=== PATIENT | female | born 1965 | race Caucasian/White ===

== ENCOUNTER → 2020-06-14 09:17 | Outpatient (BNVA) | payer BC, SELFPAY | PROVIDERS: Family Provider Nurse Practitioner; PCP Nurse Practitioner; Visit Provider Nurse Practitioner | DX: E11.65 Type 2 diabetes mellitus with hyperglycemia (principal); E04.9 Nontoxic goiter, unspecified | CPT/HCPCS: 80053; 80061; 82043; 83036; 84443 ==

== ENCOUNTER 2020-07-05 06:57 | Outpatient (CLI) | payer BC, SELFPAY ==
--- NOTE | 2020-07-05 07:15 | US_ITS ---
WS: [id number] THYROID ULTRASOUND (TI-RADS CRITERIA) History: Enlarged thyroid. Technique: Ultrasound examination of the thyroid and adjacent soft tissues is performed. COMPARISON: 03/10/2019 RIGHT thyroid lobe: 4.6 x 1.7 x 2.0 cm. LEFT thyroid lobe: 4.9 x 1.7 x 1.7 cm. Isthmus: 0.3 cm. Estimated total number of nodules greater than or equal to 1 cm: 1, RIGHT side. Number of spongiform nodules greater than or equal to 2 cm not described below (TR1): 0 Number of mixed cystic and solid nodules greater than or equal to 1.5 cm not described below (TR2): 0 NODULE: 1 Size: 0.6 x 0.6 x 0.5 cm. Location: Superior RIGHT thyroid lobe. Composition: Solid/almost completely solid (2) Echogenicity: Hypoechoic (2) Shape: [id number] (3) Margins: Ill-defined (0) Echogenic foci: 0 ACR TI-RADS total points: 5 ACR TI-RADS risk category: TR 4, moderately suspicious. NODULE: 2 Size: 1.0 x 0.6 x 1.0 cm. Location: Inferior RIGHT thyroid. Composition: Solid/almost completely solid (2) Echogenicity: Hypoechoic (2) Shape: Not taller than wide (0) Margins: Smooth (0) Echogenic foci: None (0) ACR TI-RADS total points: 4 ACR TI-RADS risk category: TR4, moderately suspicious. US/US thyroid [id number] IMPRESSION: TI-RADS 4 Recommendation: Follow-up ultrasound at 1, 2, 3 and 5 years. RIGHT thyroid nodules need further evaluation as recommended above. Recommendat ion may change if thyroid nodules increase in size or become more concerning.
== END 2020-07-05 06:58 | disposition home or self-care (01) ==
LOC: US 06:57
PROVIDERS: PCP Nurse Practitioner; Visit Provider Nurse Practitioner
DX: E04.9 Nontoxic goiter, unspecified (principal); E04.1 Nontoxic single thyroid nodule
CPT/HCPCS: 76536

== ENCOUNTER → 2021-01-06 10:02 | Outpatient (BNVA) | payer BC, SELFPAY | PROVIDERS: PCP Nurse Practitioner; Visit Provider Nurse Practitioner | DX: E11.65 Type 2 diabetes mellitus with hyperglycemia (principal); E78.5 Hyperlipidemia, unspecified; I10 Essential (primary) hypertension | CPT/HCPCS: 80053; 80061; 81000; 82043; 83036 ==

== ENCOUNTER → 2021-01-07 11:10 | Outpatient (BNVA) | payer BC, SELFPAY | PROVIDERS: PCP Nurse Practitioner; Visit Provider Obstetrics & Gynecology | DX: Z12.4 Encounter for screening for malignant neoplasm of cervix (principal) | CPT/HCPCS: 88175 ==

== ENCOUNTER → 2021-05-11 09:26 | Outpatient (BNVA) | payer BC, SELFPAY | PROVIDERS: PCP Nurse Practitioner; Visit Provider Nurse Practitioner | DX: E11.65 Type 2 diabetes mellitus with hyperglycemia (principal); F41.1 Generalized anxiety disorder; R00.2 Palpitations; I10 Essential (primary) hypertension; G47.33 Obstructive sleep apnea (adult) (pediatric); E78.5 Hyperlipidemia, unspecified | CPT/HCPCS: 80053; 83036; 84443 ==

== ENCOUNTER → 2021-11-14 09:38 | Outpatient (BNVA) | payer BC, SELFPAY | PROVIDERS: PCP Nurse Practitioner; Visit Provider Nurse Practitioner | DX: R51.9 Headache, unspecified (principal); F41.1 Generalized anxiety disorder; E11.65 Type 2 diabetes mellitus with hyperglycemia; I10 Essential (primary) hypertension; R00.2 Palpitations | CPT/HCPCS: 80053; 80061; 82043; 83036; 84443; 85025 ==

== ENCOUNTER 2022-01-03 08:05 | Outpatient (CLI) | payer BC, SELFPAY ==
--- NOTE | 2022-01-03 08:23 | MR_ITS ---
WS: [id number] MRI HEAD WITHOUT CONTRAST TECHNIQUE: Sagittal T1, T2 axial, T2 axial FLAIR, axial and coronal T1 images, axial susceptibility w eighted imaging, axial diffusion weighted images, and coronal T2 images were obtained. CLINICAL INFORMATION: R51.9 - Headache, unspecified COMPARISON: None. FINDINGS: No evidence of restricted diffusion to suggest acute ischemia. Ventricular system and basal cisterns are patent. Mild small vessel changes. No significant parenchymal volume loss. Normal posterior fossa . Normal vascular flow voids at the skull base. No extra-axial fluid collections. No evidence of mass or mass effect. Paranasal sinuses and mastoid air cells are well aerated. Normal posterior nasophary nx. Tiny chronic lacunar infarct LEFT cerebellum. No hemosiderin on the susceptibly weighted images. Normal optic chiasm and pituitary infundibulum. MR/MR head wo con* [id number] IMPRESSION: 1. No evidence of restricted diffusion to suggest acute ischemia. 2. Mild small vessel changes. No significant parenchymal volume loss. 3. Tiny chronic lacunar infarct LEFT cerebellum. 4. Paranasal sinuses and mastoid air cells are well aerated. 5. No hemosiderin on the susceptibly weighted images.
== END 2022-01-03 08:06 | disposition home or self-care (01) ==
PROVIDERS: PCP Nurse Practitioner; Visit Provider Nurse Practitioner
DX: R51.9 Headache, unspecified (principal); I63.81 Other cerebral infarction due to occlusion or stenosis of small artery
CPT/HCPCS: 70551

== ENCOUNTER → 2022-01-10 15:23 | Outpatient (BNVA) | payer BC, SELFPAY | PROVIDERS: PCP Nurse Practitioner; Visit Provider Nurse Practitioner | DX: I10 Essential (primary) hypertension (principal); M25.561 Pain in right knee | CPT/HCPCS: 73562 ==

== ENCOUNTER → 2022-03-27 11:53 | Outpatient (BNVA) | payer BC, SELFPAY | PROVIDERS: PCP Nurse Practitioner; Visit Provider Nurse Practitioner | DX: E11.65 Type 2 diabetes mellitus with hyperglycemia (principal); R00.2 Palpitations; I10 Essential (primary) hypertension; F41.1 Generalized anxiety disorder; E78.5 Hyperlipidemia, unspecified | CPT/HCPCS: 80053; 80061; 82043; 83036 ==

== ENCOUNTER → 2022-07-28 11:32 | Outpatient (BNVA) | payer BC, SELFPAY | PROVIDERS: PCP Nurse Practitioner; Visit Provider Nurse Practitioner | DX: N64.4 Mastodynia (principal); Z12.11 Encounter for screening for malignant neoplasm of colon; E11.65 Type 2 diabetes mellitus with hyperglycemia; F41.1 Generalized anxiety disorder; R00.2 Palpitations | CPT/HCPCS: 80053; 83036 ==

== ENCOUNTER 2022-09-08 13:44 | Outpatient (CLI) | payer BC, SELFPAY ==
--- NOTE | 2022-09-08 13:54 | MM_ITS ---
WS: [id number] DIAGNOSTIC BILATERAL DIGITAL BREAST TOMOSYNTHESIS MAMMOGRAPHY WITH CAD LEFT breast ultrasound, limited HISTORY: BREAST PAIN COMPARISON: 05/02/2019 and 12/06/2017 TECHNIQUE: Bilateral craniocaudad, mediolateral oblique, and mediolateral views are submitted with to mosynthesis and SM. Spot compression LEFT CC and MLO. Computer aided detection utilized. Breast composition: There are scattered areas of fibroglandular density. Development of numerous spic ulated masses in the upper outer quadrant of the LEFT breast. The largest mass causing skin thickenin g and distortion measures 2.3 x 2.1 cm. There is an additional more posterior mass measuring 1.8 x 1. 8 cm. There may be an additional mass in the upper outer quadrant. There is additional soft tissue th ickening. All these changes are in the upper outer quadrant. The RIGHT breast is negative. LEFT breast ultrasound, limited. Soft tissue mass with dense shadowing and obscured posterior margin in the LEFT breast at 1:00, 6 cm from the nipple. Mass measures 2.8 x 3.1 x 1.7 cm. There is an additional mass at 2:00, 7 cm from the nipple with dense shadowing measuring 1.7 x 1.8 x 1.4 cm. There are a few additional scattered cysts . There may be additional masses which are obscured by the dense shadowing in the breast. No adenopathy in the LEFT axilla. MM/[place] [id number] IMPRESSION: BI-RADS: 5-Highly Suggestive of Malignancy FOLLOW UP: Biopsy Recommended Ultrasound-guided biopsy recommended LEFT breast. There are at least 2 masses w hich can be identified as separate structures which may undergo biopsy. If dee tional masses in the upper outer quadrant are identified during the biopsy thes e can also be biopsied.
--- NOTE | 2022-09-08 14:30 | US_ITS ---
WS: [id number] DIAGNOSTIC BILATERAL DIGITAL BREAST TOMOSYNTHESIS MAMMOGRAPHY WITH CAD LEFT breast ultrasound, limited HISTORY: BREAST PAIN COMPARISON: 05/02/2019 and 12/06/2017 TECHNIQUE: Bilateral craniocaudad, mediolateral oblique, and mediolateral views are submitted with to mosynthesis and SM. Spot compression LEFT CC and MLO. Computer aided detection utilized. Breast composition: There are scattered areas of fibroglandular density. Development of numerous spic ulated masses in the upper outer quadrant of the LEFT breast. The largest mass causing skin thickenin g and distortion measures 2.3 x 2.1 cm. There is an additional more posterior mass measuring 1.8 x 1. 8 cm. There may be an additional mass in the upper outer quadrant. There is additional soft tissue th ickening. All these changes are in the upper outer quadrant. The RIGHT breast is negative. LEFT breast ultrasound, limited. Soft tissue mass with dense shadowing and obscured posterior margin in the LEFT breast at 1:00, 6 cm from the nipple. Mass measures 2.8 x 3.1 x 1.7 cm. There is an additional mass at 2:00, 7 cm from the nipple with dense shadowing measuring 1.7 x 1.8 x 1.4 cm. There are a few additional scattered cysts . There may be additional masses which are obscured by the dense shadowing in the breast. No adenopathy in the LEFT axilla. US/US breast LT limited* [id number] IMPRESSION: BI-RADS: 5-Highly Suggestive of Malignancy FOLLOW UP: Biopsy Recommended Ultrasound-guided biopsy recommended LEFT breast. There are at least 2 masses w hich can be identified as separate structures which may undergo biopsy. If dee tional masses in the upper outer quadrant are identified during the biopsy thes e can also be biopsied.
== END 2022-09-08 13:45 | disposition home or self-care (01) ==
LOC: RAD 13:48
PROVIDERS: PCP Nurse Practitioner; Visit Provider Nurse Practitioner
DX: N63.21 Unspecified lump in the left breast, upper outer quadrant (principal); N64.4 Mastodynia
CPT/HCPCS: 76642; 77062; G0279

== ENCOUNTER 2022-10-12 07:48 | Outpatient (CLI) | payer BC, SELFPAY ==
--- NOTE | 2022-10-12 | US_ITS ---
WS: [id number] ULTRASOUND-GUIDED LEFT BREAST BIOPSY CLINICAL INFORMATION: N63.21 - Unspecified lump in the left breast, upper outer... FINDINGS: The procedure including risks, benefits, and complications were discussed with the patient who agreed to proceed. Using sterile technique patient was prepped and draped in the usual sterile fashion. Aft er 1% lidocaine utilizing real-time ultrasound guidance 4 14-gauge cores were obtained of the LEFT br east lesion at the 1 o'clock position 6 cm from the nipple. Subsequently a titanium clip was placed i n the biopsy cavity. Next, LEFT breast lesion at the 2:00 position 7 cm from the nipple was localized. Four 14-gauge cores were obtained. Titanium clip was placed in the biopsy cavity. No immediate complications. Pathology demonstrates A. Breast, left, 1 o'clock, 6 cm from nipple, biopsy: - Invasive ductal carcinoma. - Adame Fonseca grade 2 (score 6). - Breast profile has been performed and will be reported separately. B. Breast, left, 2 o'clock, 7 cm from nipple, biopsy: - Invasive ductal carcinoma. - Adame Fonseca grade 2 (score 6). - Breast profile has been performed and will be reported separately. US/[place] [id number] IMPRESSION: 1. Uncomplicated ultrasound-guided LEFT breast biopsy. 2. The pathology demonstrates invasive ductal carcinoma LEFT breast correspond ing to the biopsied 1:00 and 2:00 lesions. 3. Breast cancer prognostic profile pending. BI-RADS: 6-Known Biopsy-Proven Malignancy FOLLOW UP: Surgical Biopsy Recommended Recommend Breast surgery consultation in further evaluation.
--- NOTE | 2022-10-12 08:14 | US_ITS ---
WS: [id number] ULTRASOUND-GUIDED LEFT BREAST BIOPSY CLINICAL INFORMATION: N63.21 - Unspecified lump in the left breast, upper outer... FINDINGS: The procedure including risks, benefits, and complications were discussed with the patient who agreed to proceed. Using sterile technique patient was prepped and draped in the usual sterile fashion. Aft er 1% lidocaine utilizing real-time ultrasound guidance 4 14-gauge cores were obtained of the LEFT br east lesion at the 1 o'clock position 6 cm from the nipple. Subsequently a titanium clip was placed i n the biopsy cavity. Next, LEFT breast lesion at the 2:00 position 7 cm from the nipple was localized. Four 14-gauge cores were obtained. Titanium clip was placed in the biopsy cavity. No immediate complications. Pathology demonstrates A. Breast, left, 1 o'clock, 6 cm from nipple, biopsy: - Invasive ductal carcinoma. - Adame Fonseca grade 2 (score 6). - Breast profile has been performed and will be reported separately. B. Breast, left, 2 o'clock, 7 cm from nipple, biopsy: - Invasive ductal carcinoma. - Adame Fonseca grade 2 (score 6). - Breast profile has been performed and will be reported separately. US/[place] [id number] IMPRESSION: 1. Uncomplicated ultrasound-guided LEFT breast biopsy. 2. The pathology demonstrates invasive ductal carcinoma LEFT breast correspond ing to the biopsied 1:00 and 2:00 lesions. 3. Breast cancer prognostic profile pending. BI-RADS: 6-Known Biopsy-Proven Malignancy FOLLOW UP: Surgical Biopsy Recommended Recommend Breast surgery consultation in further evaluation.
[2022-10-19 06:49] LABS: Breast Profile ER,PR,HER2,Ki-6 See Report
== END 2022-10-12 07:49 | disposition home or self-care (01) ==
PROVIDERS: PCP Nurse Practitioner; Visit Provider Nurse Practitioner
DX: N63.21 Unspecified lump in the left breast, upper outer quadrant (principal); C50.412 Malignant neoplasm of upper-outer quadrant of left female breast
CPT/HCPCS: 19083; 19084; 88305; 88361; 88374

== ENCOUNTER 2022-10-30 20:44 | Observation (INO) | payer BC, SELFPAY ==
--- NOTE | 2022-10-30 20:46 | ED_ITS ---
HPI - Chest Pain General: Chief Complaint: Chest Pain Stated Complaint: CP, SOB Time Seen by Provider: 10/30/22 20:46 History of Present Illness: Ms. Taylor is a 57-year-old lady with history of hypertension, hyperlipidemia, diabetes, recent diagnosis of breast cancer presenting to the emergency department due to chest pain and shortness of breath. Onset of symptoms was yesterday with generalized malaise associated with diarrhea. Has continued to have abdominal cramping and diarrhea today which is nonbloody. Also has had nausea. Became lightheaded and had presyncopal episode around 7:30 PM and has pressure in the middle of her chest. Intensity symptoms is moderate to severe. Course has persisted. Denies frequent episodes in the past. No other specific changes in health, exacerbating, or alleviating factors identified. [employer] Zofran, aspirin, nitro by EMS Onset (ago): hour(s) Timing of current episode: increasing Prior episodes: No Pain location: substernal Severity: moderate Quality: tightness and heaviness Relieving factors: nothing Exacerbating factors: nothing Context: other Associated symptoms: Reports abdominal pain, dyspnea, nausea, vomiting and other Review of Systems General: Reports: 10 or more systems reviewed and unremarkable except in HPI and below Resp: Reports: dyspnea GI: Reports: abdominal pain, nausea and vomiting PFSH ED PFSH: Medical History Atypical chest pain Benign essential HTN Breast cancer, left Controlled diabetes mellitus with hyperglycemia, without long-term current use of insulin Dyslipidemia Dyslipidemia (high LDL; low HDL) Endometrial polyp Generalized anxiety disorder Hypertension Impacted cerumen of both ears CHANI on CPAP Ovarian cyst, left Palpitations (~10/2019) Postmenopausal bleeding Patient was counseled regarding postmenopausal bleeding is bleeding that occurs 12 or more months after the last menstrual period and accounts for 5% of all gynecologic office visits. While it is not always a symptom of cancer, the exclusion of endometrial hyperplasia and carcinoma is the babcock issue in the evaluation of patients with postmenopausal bleeding. The primary evaluation of postmenopausal women who present with abnormal uterine bleeding includes a medical history and a pelvic examination. Studies to evaluate, are a uterine biopsy, ultrasound, hysteroscopy or dilation and curettage, may be required. Treatment will depend on the cause. An office hysteroscopy was recommended. The patient was counseled regarding the procedure. The office hysteroscopy showed an endometrial polyp on the posterior uterine wall. Surgical History History of arthroscopy of left shoulder History of bilateral cataract extraction History of cholecystectomy History of detached retina repair Left eye History of elbow surgery Hx of hernia repair S/P arthroscopic surgery of left knee Status post hysteroscopic polypectomy Family History Father Heart disease Cancer Hyperlipidemia Hypertension Mother Heart disease Thyroid condition Hyperlipidemia Hypertension Grandfather Cancer Maternal--prostate cancer Brother Stroke Unknown No problems noted. Sister Diabetes Hyperlipidemia Hypertension Brother Diabetes Hyperlipidemia Hypertension Grandmother Diabetes maternal Denies family history of Colon cancer Ovarian cancer Clotting disorder Breast cancer Anesthesia complication Bleeding disorder Uterine cancer Social History Smoking and tobacco status: former smoker Quit status (tobacco): has quit using tobacco Year quit tobacco: 2004 Second hand smoke exposure: No Smoking risk assessment/counseling performed?: No Alcohol intake: never Desire information about alcohol rehabilitation?: No Counseling given: No Desire information about substance/drug rehabilitation?: No Counseling given: No Adopted: No Caregiver/support person: No Lives independently: Yes Housing: House Marital status: service: No Current occupational status: employed Current occupation: [employer] Current gender identity: Female Physical Exam Const: COMMON NORMALS: alert GENERAL APPEARANCE: cooperative, well developed and ill appearing (Somewhat) HENMT: COMMON NORMALS: normocephalic and atraumatic HEAD & SCALP: normocephalic and atraumatic Eye: COMMON NORMALS: conjunctivae normal CONJUNCTIVA: Yes conjunctivae normal SCLERA: sclerae normal Neck/C-Spine: COMMON NORMALS: supple GENERAL: Yes trachea midline Resp: COMMON NORMALS: normal respiratory effort and clear to auscultation bilaterally EFFORT & INSPECTION: Yes able to speak in complete sentences AUSCULTATION: clear to auscultation bilaterally Cardio: COMMON NORMALS: regular rhythm RATE: tachycardic RHYTHM: regular rhythm GI: COMMON NORMALS: Soft to palpation PALPATION: Yes Soft to palpation, Yes Tenderness to palpation present (GI) (Mild, generalized), No Guarding due to palpation present (GI) and No Rigid due to palpation Extremity: GENERAL: Yes normal exam except as noted and No edema Neuro: COMMON NORMALS: moves all extremities SENSORIUM/ORIENTATION: Yes alert and No Orientation impaired Psych: COMMON NORMALS: mental status grossly normal and Normal thought process present THOUGHT PROCESS: Normal thought process present Course Vital Signs: Vital signs: Vital Signs Temperature 98.2 F 10/31/22 14:12 Pulse Rate 82 10/31/22 14:12 Respiratory Rate 18 10/31/22 14:12 Blood Pressure 139/79 10/31/22 14:12 Pulse Oximetry 98 10/31/22 14:12 Oxygen Delivery Me thod 10/31/22 11:18 Fraction of Inspir ed Oxygen 21 10/31/22 02:46 MDM - Chest Pain Medical Decision Making 57-year-old lady presenting with chest pain and near syncope as well as few day history of abdominal symptoms. Exam as above. Abdominal tenderness without evidence of acute surgical abdomen. Patient is nontoxic in appearance. EKG shows sinus rhythm with nonspecific ST segment abnormalities, no STEMI. No significant hematologic abnormality. Metabolic panel mildly decreased bicarb, renal function is preserved. Negative range 2-hour delta troponin. No UTI. Rapid viral panel negative. Given patient description of symptoms as well as possible S1Q3T3 and the fact that patient cannot be delivered by PERC criteria D-dimer was obtained which was elevated. Chest x-ray with questionable minimal right lower lobe infiltrate or atele ctasis. CT imaging without evidence of PE or pneumonia. Patient has hepatomegaly with fatty liver and fat-containing hernia though hernia does not appear to be cause of patient symptoms. Most likely etiology of patient's symptoms is chest pain, she is not low risk by heart score. The results of ED evaluation were discussed with the patient including possible disposition options. I discussed risk stratification by heart score and estimated risk of major adverse cardiac events. The patient wishes to proceed with in-hospital management. I discussed plan for admission due to requirement for level of care not available if discharged to prevent significant worsening/deterioration. Patient agreeable with plan. Discussed with hospitalist service who was agreeable to admit patient. Medical Records I reviewed the patient's medical records. Lab Data I reviewed the patient's lab results. 10/30/22 20:51 10/30/22 20:51 Radiology Impressions Chest X-Ray 10/30/22 20:51 IMPRESSION: Minimal infiltrate or atelectasis right lower lobe. Correlate for possible pneumonia. Chest/Abdomen/Pelvis CT 10/30/22 21:37 IMPRESSION: 1. No acute pulmonary disease. 2. No pulmonary embolus. 3. Multiple nodular densities in the left breast. Correlate with mammographic findings. 4. 4 mm solid right upper lobe pulmonary nodule. 5. For patients at low risk (minimal or absent history of smoking and of other known risk factors), no routine follow-up is indicated. For patients at high risk (history of smoking or of other known risk factors), consider IMPRESSION: 1. Hepatomegaly with fatty infiltration of the liver. 2. Bladder wall thickening. Correlate for cystitis. 3. Right sided fat containing ventral abdominal wall hernia with narrow neck, and minimal stranding. Correlate for possible strangulation of the hernia clinically. Laboratory Results WBC 8.4 10^3/uL (4.0-10.0) 10/30/22 20:51 RBC 4.70 10^6/uL (4.1-5.3) 10/30/22 20:51 Hgb 13.3 g/dL (11.5-15.3) 10/30/22 20:51 Hct 41.9 % (37.0-47.0) 10/30/22 20:51 MCV 89.1 fl (81-99) 10/30/22 20:51 MCH 28.3 pg (28.0-34.0) 10/30/22 20:51 MCHC 31.7 g/dL (30.0-36.0) 10/30/22 20:51 RDW 13.3 % (12.1-15.1) 10/30/22 20:51 Plt Count 366 10^3/cmm (130-400) 10/30/22 20:51 MPV 12.1 fL (7.4-10.4) H 10/30/22 20:51 Neut % (Auto) 66.6 % 10/30/22 20:51 Lymph % (Auto) 22.5 % 10/30/22 20:51 [place] % (Auto) 8.2 % 10/30/22 20:51 Eos % (Auto) 2.1 % 10/30/22 20:51 Baso % (Auto) 0.2 % 10/30/22 20:51 Neut # (Auto) 5.60 10^3/uL (1.8-7.7) 10/30/22 20:51 Lymph # (Auto) 1.9 10^3/uL (0.8-4.8) 10/30/22 20:51 [place] # (Auto) 0.7 10^3/uL (0.2-0.9) 10/30/22 20:51 Eos # (Auto) 0.2 10^3/uL (0.0-0.8) 10/30/22 20:51 Baso # (Auto) 0.0 10^3/uL (0.0-0.1) 10/30/22 20:51 Nucleated RBC % (auto) 0 % 10/30/22 20:51 Nucleated RBCs # 0.0 /100WBC 10/30/22 20:51 D-Dimer 3.22 ug/mIFEU (0-0.59) H 10/30/22 20:57 Sodium 142 mmol/L (136-145) 10/30/22 20:51 Potassium 4.1 mmol/L (3.5-5.1) 10/30/22 20:51 Chloride 109 mmol/L (98-107) H 10/30/22 20:51 Carbon Dioxide 20 mmol/L (22-29) L 10/30/22 20:51 Anion Gap 17.1 (5-19) 10/30/22 20:51 BUN 16 mg/dL (6-20) 10/30/22 20:51 Creatinine 0.7 mg/dL (0.5-0.9) 10/30/22 20:51 GFR Calculation 86.2 mL/min (90-130) L 10/30/22 20:51 Glucose 130 mg/dL (65-115) H 10/30/22 20:51 Calculated Osmolality 297 mOsm/kg (285-295) H 10/30/22 20:51 Calcium 8.7 mg/dL (8.5-10.5) 10/30/22 20:51 Magnesium 1.9 mg/dL (1.7-2.3) 10/30/22 22:34 Total Bilirubin 0.2 mg/dL (0.15-1.2) 10/30/22 20:51 AST 16 U/L (0-32) 10/30/22 20:51 ALT 22 U/L (0-33) 10/30/22 20:51 Alkaline Phosphatase 88 U/L (35-105) 10/30/22 20:51 Troponin T Baseline 6 ng/L (0-10) 10/30/22 20:51 Troponin T 120 Minute 6.00 ng/L (0-10) 10/30/22 22:34 Delta Troponin T 0 ABS# (0-10) 10/30/22 22:34 NT-Pro-B Natriuret Pep 71 pg/mL (0-125) 10/30/22 20:51 Total Protein 7.0 g/dL (6.6-8.7) 10/30/22 20:51 Albumin 3.5 g/dL (3.5-5.2) 10/30/22 20:51 Globulin 3.5 g/dL (1.3-4.6) 10/30/22 20:51 Lipase 31 U/L (13-60) 10/30/22 20:51 Urine Color Yellow (Yellow) 10/30/22 21:00 Urine Appearance Clear (CLEAR) 10/30/22 21:00 Urine pH 7 (5-7) 10/30/22 21:00 Ur Specific [place] 1.010 (1.005-1.030) 10/30/22 21:00 Urine Protein Neg (Negative) 10/30/22 21:00 Urine Glucose (UA) Norm (Normal) 10/30/22 21:00 Urine Ketones Negative (Negative) 10/30/22 21:00 Urine Blood Neg (Negative) 10/30/22 21:00 Urine Nitrate Negative (Negative) 10/30/22 21:00 Urine Bilirubin Neg (Negative) 10/30/22 21:00 Urine Urobilinogen Norm mg/dL (Negative) 10/30/22 21:00 Ur Leukocyte Esterase Negative (Negative) 10/30/22 21:00 Influenza Type A Ag negative (Negative) 10/30/22 21:15 Influenza Type B Ag negative (Negative) 10/30/22 21:15 SARS-CoV-2 Ag (Rapid) negative (Negative) 10/30/22 21:15 Discharge Plan Discharge Patient Disposition: Placed in Observation Admit Provider: Kristopher Howell Clinical Impression: Chest pain Discharge Diet: Cardiac Discharge Activity: Resume usual activity Coding Level of Care Code ED Inspector Final Assembly Mechanical for Chg Fwd Exam Comprehensive
[2022-10-30 20:47] VITALS: PULSE 89; RESP 20; TEMP 36.8; O2SAT 98; BMI 51.2
--- NOTE | 2022-10-30 20:51 | XRR_ITS ---
PROCEDURE INFORMATION: Exam: XR Chest Exam date and time: 10/30/2022 9:08 PM Age: 57 years old Clinical indication: Pain; Other: SOB, cough; Additional info: Cp, SOB, recently diagnosed with breast cancer TECHNIQUE: Imaging protocol: Radiologic exam of the chest. Views: 1 view. COMPARISON: CR XR chest 1V [id number] 11/26/2018 10:34 AM FINDINGS: Lungs: Minimal infiltrate or atelectasis right lower lobe. Pleural spaces: Unremarkable. No pleural effusion. No pneumothorax. Heart/Mediastinum: Unremarkable. No cardiomegaly. Bones/joints: Unremarkable. XR/XR chest 1V portable [id number] IMPRESSION: Minimal infiltrate or atelectasis right lower lobe. Correlate for possible pneumonia.
--- NOTE | 2022-10-30 20:52 | ECG_ITS ---
[facility] Test Date: 2022-10-30 Pat Name: Cary Taylor Department: Room: Gender: Female [employer]: : 1965 Requested By: Adam Pablo Order Number: [id number] Marci MD: Nish Paulino M.D. Measurements Intervals [place] Rate: 86 P: 38 SD: 204 QRS: 11 QRSD: 90 T: 30 QT: 367 QTc: 440 Interpretive Statements SINUS RHYTHM Compared to ECG 11/26/2018 13:44:21 No significant changes Electronically Signed On 10-31-2022 11:58:31 ESL INSTRUCTIONAL ASSISTANT by Nish Paulino M.D. [email or web address]
[2022-10-30 20:58] LABS: Basophils % 0.2 %; Eosinophils # 0.2 10^3/uL (0.0-0.8); Eosinophils % 2.1 %; Hematocrit 41.9 % (37.0-47.0); Hemoglobin 13.3 g/dL (11.5-15.3); Lymphocytes # 1.9 10^3/uL (0.8-4.8); Lymphocytes % 22.5 %; Mean Corpuscular HGB Conc 31.7 g/dL (30.0-36.0); Mean Corpuscular Hemoglobin 28.3 pg (28.0-34.0); Mean Corpuscular Volume 89.1 fl (81-99); Mean Platelet Volume 12.1 fL (7.4-10.4); Monocytes # 0.7 10^3/uL (0.2-0.9); Monocytes % 8.2 %; Neutrophils % 66.6 %; Nucleated Red Blood Cells % 0 %; Platelet Count 366 10^3/cmm (130-400); Red Cell Distribution Width 13.3 % (12.1-15.1); White Blood Count 8.4 10^3/uL (4.0-10.0)
[2022-10-30 21:15] VITALS: RESP 18
[2022-10-30] MEDS: morphine 4 mg/mL SDV 1 mL IVP (21:15)
[2022-10-30] MEDS: sodium chloride 0.9% 1,000 ML 999 ML IV (21:15)
[2022-10-30] MEDS: ondansetron 2 mg/ML SDV 2 mL 4 MG IVP (21:15)
[2022-10-30 21:28] LABS: Alanine Aminotransferase 22 U/L (0-33); Albumin Level 3.5 g/dL (3.5-5.2); Alkaline Phosphatase 88 U/L (35-105); Anion Gap 17.1 (5-19); Aspartate Amino Transferase 16 U/L (0-32); Blood Urea Nitrogen 16 mg/dL (6-20); Calcium 8.7 mg/dL (8.5-10.5); Carbon Dioxide 20 mmol/L (22-29); Chloride 109 mmol/L (98-107); Globulin 3.5 g/dL (1.3-4.6); Glomerular Filtration Rate 86.2 mL/min (90-130); Glucose 130 mg/dL (65-115); Osmolality Calculated 297 mOsm/kg (285-295); Potassium 4.1 mmol/L (3.5-5.1); Sodium 142 mmol/L (136-145); Total Bilirubin 0.2 mg/dL (0.15-1.2)
[2022-10-30 21:29] LABS: Troponin(5th) Baseline 6 ng/L (0-10)
[2022-10-30 21:35] LABS: Lipase 31 U/L (13-60); NT Pro B Type Natriuretic Pept 71 pg/mL (0-125)
[2022-10-30 21:36] LABS: D Dimer 3.22 ug/mIFEU (0-0.59)
--- NOTE | 2022-10-30 21:37 | CTR_ITS ---
PROCEDURE INFORMATION: Exam: CTA Chest With Contrast Exam date and time: 10/30/2022 10:02 PM Age: 57 years old Clinical indication: Condition or disease; Cancer; Other: Breast; Nausea and vomiting; Other: Chest pain; Angina and dyspnea; Prior surgery; Surgery date: 6+ months; Surgery type: Cyndi, hernia, hysteroscopic polypectomy; Additional info: Cp, tachy, elevated ddimer, CA, abd pain w n/v/d TECHNIQUE: Imaging protocol: Computed tomographic angiography of the chest with contrast. 3D rendering (Not supervised by radiologist): MIP and/or 3D reconstructed images were created by the technologist. Radiation optimization: All CT scans at this facility use at least one of these dose optimization techniques: automated exposure control; mA and/or kV adjustment per patient size (includes targeted exams where dose is matched to clinical indication); or iterative reconstruction. Contrast material: OMNIPAQUE 350; Contrast volume: 95 ml; Contrast route: INTRAVENOUS (IV); COMPARISON: CR (CHEST, ) 10/30/2022 9:08 PM RADIATION DOSE METRICS: Total DLP (mGy-cm): 1755.7 FINDINGS: Pulmonary arteries: Normal. No pulmonary emboli. Aorta: Unremarkable. No aortic aneurysm. No aortic dissection. Lungs: 4 mm solid nodule right upper lobe on series 5, image 25. No evidence of pneumonia. Pleural spaces: Unremarkable. No pneumothorax. No pleural effusion. Heart: Unremarkable. No cardiomegaly. No pericardial effusion. Lymph nodes: Multiple calcified lymph nodes in the mediastinum suggesting old granulomatous disease. Bones/joints: Unremarkable. No acute fracture. Soft tissues: Multiple masses are seen in the left breast, the largest of which measures 2.6 cm in the retroareolar region on series 8, image 129. optional CT Chest at 12 months. (Reference: Jessica) REFERENCES: Arturohokenn H, et al. Guidelines for Management of Incidental Pulmonary Nodules Detected on CT Images: From the Fleischner Society 2017. Radiology. 2017;284(1):228-243. PROCEDURE INFORMATION: Exam: CT Abdomen And Pelvis With Contrast Exam date and time: 10/30/2022 10:02 PM Age: 57 years old Clinical indication: Condition or disease; Cancer; Other: Breast; Nausea and vomiting; Other: Chest pain; Angina and dyspnea; Prior surgery; Surgery date: 6+ months; Surgery type: Cyndi, hernia, hysteroscopic polypectomy; Additional info: Cp, tachy, elevated ddimer, CA, abd pain w n/v/d TECHNIQUE: Imaging protocol: Computed tomography of the abdomen and pelvis with contrast. Radiation optimization: All CT scans at this facility use at least one of these dose optimization techniques: automated exposure control; mA and/or kV adjustment per patient size (includes targeted exams where dose is matched to clinical indication); or iterative reconstruction. Contrast material: OMNIPAQUE 350; Contrast volume: 95 ml; Contrast route: INTRAVENOUS (IV); COMPARISON: 1. US pelvic with transvaginal 05/15/2019 7:[address] KUB 05/17/2017. RADIATION DOSE METRICS: Total DLP (mGy-cm): 1755.7 FINDINGS: Liver: Diffuse fatty infiltration of the liver. Liver is enlarged measuring 20 cm. Gallbladder and bile ducts: Status post cholecystectomy. Pancreas: Normal. No ductal dilation. Spleen: Normal. No splenomegaly. Adrenal glands: Normal. No mass. Kidneys and ureters: Normal. No hydronephrosis. Stomach and bowel: Scattered noninflamed colonic diverticuli. Appendix: No evidence of appendicitis. Intraperitoneal space: Unremarkable. No free air. No significant fluid collection. Vasculature: Unremarkable. No abdominal aortic aneurysm. Lymph nodes: Unremarkable. No enlarged lymph nodes. Urinary bladder: Circumferential bladder wall thickening. Reproductive: Unremarkable as visualized. Bones/joints: Unremarkable. No acute fracture. Soft tissues: Right-sided supraumbilical ventral abdominal wall hernia with neck measuring 2.6 cm. There is minimal stranding of the hernia near the neck for example on series 6, image 40. CT/CT angio chest w abd pel w con IMPRESSION: 1. No acute pulmonary disease. 2. No pulmonary embolus. 3. Multiple nodular densities in the left breast. Correlate with mammographic findings. 4. 4 mm solid right upper lobe pulmonary nodule. 5. For patients at low risk (minimal or absent history of smoking and of other known risk factors), no routine follow-up is indicated. For patients at high risk (history of smoking or of other known risk factors), consider IMPRESSION: 1. Hepatomegaly with fatty infiltration of the liver. 2. Bladder wall thickening. Correlate for cystitis. 3. Right sided fat containing ventral abdominal wall hernia with narrow neck, and minimal stranding. Correlate for possible strangulation of the hernia clinically.
[2022-10-30 21:38] LABS: Influenza A by IFA negative (Negative); Influenza B by IFA negative (Negative); SARS Covid-2 Antigen negative (Negative)
[2022-10-30 22:02] VITALS: BP 144/82; PULSE 83; O2SAT 97
[2022-10-30] MEDS: iohexol 350 mg/mL 500 mL Btl (per mL) IV (22:11)
[2022-10-30 23:19] LABS: Troponin 5 2HR Delta 0 ABS# (0-10)
--- NOTE | 2022-10-30 23:24 | ECG_ITS ---
[facility] Test Date: 2022-10-30 Pat Name: Cary Taylor Department: Room: Gender: Female Configuration Management Consultant: : 1965 Requested By: Adam Pablo Order Number: [id number] Marci MD: Nish Paulino M.D. Measurements Intervals [place] Rate: 78 P: 62 SD: 209 QRS: 51 QRSD: 89 T: 23 QT: 408 QTc: 467 Interpretive Statements SINUS RHYTHM LOW QRS VOLTAGE IN PRECORDIAL LEADS [QRS DEFLECTION < 1.0 mV IN CHEST LEADS] Compared to ECG 10/30/2022 20:51:00 Low QRS voltage now present Electronically Signed On 10-31-2022 12:01:04 SOFTWARE ASSET MANAGEMENT ANALYST by Nish Paulino M.D. [id number]
[2022-10-30 23:28] LABS: Add Urine Microscopic? NO; Charge for UA Resulting for Rev
[2022-10-30 23:34] LABS: Bilirubin Urine Neg (Negative); Blood Urine Neg (Negative); Glucose Urine UA Norm (Normal); Ketones Urine Negative (Negative); Leukocyte Esterase Urine Negative (Negative); Nitrate Urine Negative (Negative); Protein Urine Neg (Negative); Urine Appearance Clear (CLEAR); Urine Color Yellow (Yellow); Urobilinogen Urine Norm (Negative); pH Urine 7 (5-7)
[2022-10-31] VITALS (11 sets, daily range): BP systolic 105–142; BP diastolic 63–84; PULSE 74–94; RESP 16–18; TEMP 36.4–36.8; O2SAT 96–98
--- NOTE | 2022-10-31 00:33 | P.HP_ITS ---
Providers/Chief Complaint Primary Care Provider: GARRICK Branham Chief Complaint: CP, SOB History of Present Illness Cary Taylor is a 57 year old female with a past medical history of CHANI CPAP, generalized anxiety disorder, hyperlipidemia, hypertension, noninsulin- dependent type 2 diabetes mellitus, recent diagnosis of left-sided breast cancer with plans on lumpectomy on November 09, who presents [facility] for chest pain. She does not that this evening, she was having a lot of feelings of indigestion, severe heartburn, which evolved into severe left substernal chest pain like something sitting on it on her chest, lasting a few minutes, nonradiating, associate with feeling as if she was going to pass out, had some diaphoresis, some nausea, no vomiting, she has never had a cardiovascular history before, no history of cardiac stress testing Review of Systems Const: Denies: fever(s) Eyes: Denies: change in vision Card: Reports: chest pain Resp: Denies: dyspnea GI: Reports: nausea : Denies: flank pain, difficulty voiding or dysuria Musc: Denies: neck pain or back pain Neuro: Denies: headache(s) Psych: Denies: anxiety Endo: Denies: polyuria Medications/Allergies Home Medications Medication Instructions Recorded Confirmed Last Taken Type calcium carbonate 600 mg calcium 600 mg PO QDAY 11/12/19 10/17/22 Unknown History (1,500 mg) tablet (Calcium) cetirizine 10 mg tablet (Zyrtec) 10 mg PO QDAY 11/12/19 10/17/22 Unknown History cholecalciferol (vitamin D3) 25 1,000 unit PO QDAY 11/12/19 10/17/22 Unknown History mcg (1,000 unit) capsule nitroglycerin 0.4 mg sublingual 0.4 mg sublingual Q5M PRN 11/12/19 10/17/22 Unknown History tablet omega-3 fatty acids 1,000 mg 1,000 mg PO QDAY 11/12/19 10/17/22 Unknown History capsule (Fish Oil Concentrate) CPAP supplies #1 ea 05/10/22 10/17/22 Unknown Rx nystatin 100,000 unit/gram topical 1 applic topical BID PRN itching 05/10/22 10/17/22 Unknown Rx powder #30 grams metoprolol succinate 25 mg 25 mg PO DAILY #90 tabs 10/07/22 12/27/22 Unknown Rx tablet,extended release 24 hr (Toprol XL) semaglutide 0.25 mg or 0.5 mg (2 0.5 mg (0.4 mL) SUBCUT .weekly 07/28/22 10/17/22 Unknown Rx mg/1.5 mL) subcutaneous pen #4.5 mL injector (Ozempic) valsartan 80 mg tablet (Diovan) 80 mg PO DAILY #90 tabs 07/28/22 10/17/22 Unknown Rx venlafaxine 150 mg 150 mg PO QAM #90 caps 07/28/22 10/17/22 Unknown Rx capsule,extended release 24 hr (Effexor XR) Allergies Allergy/AdvReac Type Severity Reaction Status Date / Time naproxen [From Naprosyn] Allergy Hives, Verified 10/17/22 13:15 difficulty breathing PFSH Acute PFSH: Medical History Atypical chest pain Benign essential HTN Breast cancer, left Controlled diabetes mellitus with hyperglycemia, without long-term current use of insulin Dyslipidemia Dyslipidemia (high LDL; low HDL) Endometrial polyp Generalized anxiety disorder Hypertension Impacted cerumen of both ears CHANI on CPAP Ovarian cyst, left Palpitations (~10/2019) Postmenopausal bleeding Patient was counseled regarding postmenopausal bleeding is bleeding that occurs 12 or more months after the last menstrual period and accounts for 5% of all gynecologic office visits. While it is not always a symptom of cancer, the exclusion of endometrial hyperplasia and carcinoma is the babcock issue in the evaluation of patients with postmenopausal bleeding. The primary evaluation of postmenopausal women who present with abnormal uterine bleeding includes a medical history and a pelvic examination. Studies to evaluate, are a uterine biopsy, ultrasound, hysteroscopy or dilation and curettage, may be required. Treatment will depend on the cause. An office hysteroscopy was recommended. The patient was counseled regarding the procedure. The office hysteroscopy showed an endometrial polyp on the posterior uterine wall. Surgical History History of arthroscopy of left shoulder History of bilateral cataract extraction History of cholecystectomy History of detached retina repair Left eye History of elbow surgery Hx of hernia repair S/P arthroscopic surgery of left knee Status post hysteroscopic polypectomy Family History Father Heart disease Cancer Hyperlipidemia Hypertension Mother Heart disease Thyroid condition Hyperlipidemia Hypertension Grandfather Cancer Maternal--prostate cancer Brother Stroke Unknown No problems noted. Sister Diabetes Hyperlipidemia Hypertension Brother Diabetes Hyperlipidemia Hypertension Grandmother Diabetes maternal Denies family history of Colon cancer Ovarian cancer Clotting disorder Breast cancer Anesthesia complication Bleeding disorder Uterine cancer Social History Smoking and tobacco status: former smoker Quit status (tobacco): has quit using tobacco Year quit tobacco: 2004 Second hand smoke exposure: No Smoking risk assessment/counseling performed?: No Alcohol intake: never Desire information about alcohol rehabilitation?: No Counseling given: No Desire information about substance/drug rehabilitation?: No Counseling given: No Adopted: No Caregiver/support person: No Lives independently: Yes Housing: House Marital status: service: No Current occupational status: employed Current occupation: [employer] Current gender identity: Female Vitals/I&O/Wt Last Vital Signs Temp 98.2 F 10/30/22 20:47 Pulse 83 10/30/22 22:02 Resp 18 10/30/22 21:15 BP 144/82 10/30/22 22:02 Pulse Ox 97 10/30/22 22:02 O2 Del Method 10/30/22 20:47 Weight last 48 hrs Weight 127.006 kg Physical Exam Const: COMMON NORMALS: no acute distress and patient oriented x3 HENMT: COMMON NORMALS: normocephalic HEAD & SCALP: normocephalic Eye: COMMON NORMALS: Equal, round and reactive pupils present and EOMs intact bilaterally Lymph: LYMPHATIC: no lymphadenopathy noted Resp: COMMON NORMALS: normal respiratory effort, No retractions, No use of accessory muscles and clear to auscultation bilaterally AUSCULTATION: clear to auscultation bilaterally Cardio: COMMON NORMALS: regular rate, regular rhythm, S1 normal heart sound present and S2 normal heart sound present RATE: regular rate RHYTHM: regu lar rhythm HEART SOUNDS: S1 normal heart sound present and S2 normal heart sound present GI: COMMON NORMALS: Normal to inspection, nondistended, normoactive bowel sounds present, Soft to palpation, non-tender and no bruits PALPATION: Yes Soft to palpation OTHER: Obese abdomen Ventral hernia, palpated, measuring 3 x 3 cm, bowels reducible, slightly tender on palpation Extremity: COMMON NORMALS: no calf tenderness and no pedal edema Neuro: COMMON NORMALS: patient oriented x3, CN's II-XII intact bilaterally, moves all extremities and no focal motor deficits Psych: COMMON NORMALS: mental status grossly normal Data 10/30/22 20:51 10/30/22 20:51 A&P Assessment and plan (1) Chest pain: (2) Breast cancer, left: (3) CHANI on CPAP: (4) Generalized anxiety disorder: (5) Dyslipidemia (high LDL; low HDL): (6) Benign essential HTN: (7) Abdominal wall hernia: Plan Atypical chest pain -Serial EKGs, serial troponins, telemetry monitoring -Aspirin, statin, continue beta-juany -N.p.o. -Cardiac echo -Nuclear stress testing in a.m., will have to discuss the case with cardiology, as patient's left-sided breast cancer may cause attenuation artifact with nuclear imaging -TSH, mag -Full code -Lovenox for DVT prophylaxis Abdominal wall hernia -She tells it that is always tender and she has had it for years -Has had bowel movements, currently no nausea -CT scan showed Right sided fat containing ventral abdominal wall hernia with narrow neck, and minimal stranding. Correlate for possible strangulation of the hernia clinically. -We will monitor Has a solid right upper lobe pulmonary nodule 4 mm, quit smoking over 16 years ago, will need to follow-up with hematology oncology Left-sided breast cancer, will have a lumpectomy on November 06 Type 2 diabetes mellitus, low-dose sliding scale CHANI on CPAP Morbid obesity Attestations Medical Necessity Statement*: Patient requires hospitalization, outpatient observation, for atypical chest pain Coding Level of Care Code Acute Switchbox Assembler for Chg Fwd Diagnoses Chest pain R07.9 Breast cancer, left C50.912 CHANI on CPAP G47.33; Z99.89 Generalized anxiety disorder F41.1 Dyslipidemia (high LDL; low HDL) E78.5 Benign essential HTN I10 Abdominal wall hernia K43.9
--- NOTE | 2022-10-31 00:33 | USCV_ITS ---
Cary Taylor Age: 57 Gender: F : 1965 Exam Date: 10/31/2022 00:55 Ordering Phys: Kristopher Howell MD Technologist: HUNTER [place] [facility] [place]: CP SOB today. No history of cardiac intervention per patient. BP: 143 / 67 HR: 77 Rhythm: Sinus Technical Quality: Adequate with [employer] MEASUREMENTS (Male / Female) Normal Values 2D ECHO LV Diastolic Diameter PLAX 4.7 cm 4.2 - 5.9 / 3.9 - 5.3 cm LV Systolic Diameter PLAX 2.9 cm IVS Diastolic Thickness 1.4 cm 0.6 - 1.0 / 0.6 - 0.9 cm IVS Systolic Thickness 1.3 cm LVPW Diastolic Thickness 1.1 cm 0.6 - 1.0 / 0.6 - 0.9 cm LVPW Systolic Thickness 1.8 cm LVOT Diameter 1.9 cm LV Ejection Fraction 2D Teich 67.1 % LV Ejection Fraction MOD 2C 70.0 % LV Ejection Fraction 2C AL 69.2 % LA Diameter 3.8 cm LA Width 3.5 cm LA Height 4.4 cm RA Width 4.1 cm RA Height 4.6 cm Aorta at Sinotubular Diameter 2.4 cm IVC Diameter 1.3 cm M-MODE Aortic Annulus Diameter 2.8 cm LA Ao Ratio MM 1.3 MV E Point Septal Separation 0.4 cm DOPPLER AV Peak Velocity 115.0 cm/s LVOT Peak Velocity 72.0 cm/s AV Area Cont Eq vti 1.6 cm squared AV Area Cont Eq pk 1.7 cm squared MV Area PHT 2.6 cm squared Mitral E to A Ratio 0.8 MV E' Velocity 37.0 cm/s Mitral E to MV E' Ratio 7.3 Mitral E to LV E' Lateral Ratio 7.3 Mitral E to LV E' Septal Ratio 7.3 TR Peak Velocity 219.0 cm/s TR Peak Gradient 19.2 mmHg TV Peak E Velocity 53.0 cm/s Right Atrial Pressure 5.0 mmHg Pulmonary Artery Systolic Pressu 24.2 mmHg PV Peak Velocity 113.0 cm/s FINDINGS Left Ventricle Left ventricle is normal in size. LV systolic function is normal with EF of 55 to 60%. No regional wall motion abnormalities are seen. Grade 1 diastolic dysfunction. Right Ventricle Normal in size and function Right Atrium Normal in size Left Atrium Normal in size Mitral Valve Structurally normal mitral valve. Trace mitral regurgitation Aortic Valve Structurally normal aortic valve. No significant stenosis or regurgitation. Tricuspid Valve Mild tricuspid regurgitation. Pulmonary artery systolic pressure is normal. Pulmonic Valve Not well visualized Pericardium Trivial pericardial effusion is seen Aorta Normal in size IVC Appears to be normal CONCLUSIONS Technically limited quality echocardiogram because of poor ultrasonic windows. LV systolic function is normal with EF 55 to 60%. Grade 1 diastolic dysfunction. Trace mitral regurgitation Mild tricuspid valve regurgitation. Trivial pericardial effusion is seen. Compared to prior echocardiogram from 2019, no significant changes are seen. Nish Paulino MD (Electronically Signed) Final Date: 31 October 2022 11:43 S
[2022-10-31 01:02] LABS: Magnesium 1.9 mg/dL (1.7-2.3)
--- NOTE | 2022-10-31 01:04 | NMCV_ITS ---
NM emma perf SPECT r/s* [id number] Cary Taylor Age: 57 Gender: F : 1965 Exam Date: 10/31/2022 06:43 Ordering Phys: Kristopher Howell MD Technologist: STEFANIA Payton Exam Location: [facility] Indications: CHEST PAIN STRESS TEST Please see separate stress test report in [facility] for full findings IMAGE PROTOCOL Rest/Stress 1 Lexiscan Day Radiopharmaceutical Dose (mCi) Administration Site Administered by Rest: Tc-99m 10.9 IV STEFANIA Paul Sestamibi Stress:Tc-99m 32.8 IV STEFANIA Paul Sestamibi Rest: 31-Oct-2022 60 Discovery 630 Stress: 31-Oct-2022 30 Discovery 630 0.4mg Lexiscan. Supine position only as patient was unable to lay prone. SPECT RESULTS Technical Quality: Excellent Raw Data Analysis: Normal Image Corrections: No attenuation or motion correction applied Summed Stress Score: 1 Summed Rest Score: 1 Summed Difference Score: 0 PERFUSION FINDINGS A small area of slightly decreased tracer uptake was noted in the apical lateral segment. No reversibility was noted in this region. FUNCTIONAL RESULTS (calculated via Gated SPECT) Stress Image LV EF (%): 72 Stress EDV (mL):75 TID: 0.93 Stress ESV (mL):21 FUNCTIONAL FINDINGS: Segmental wall motion analysis revealing no gross wall motion abnormalities IMPRESSIONS 1. Myocardial perfusion imaging revealing a small area of persistent decreased tracer uptake in the apical lateral region suggestive of myocardial scarring versus attenuation artifact. 2. Normal LV ejection fraction 72%. 3. LV wall motion analysis revealing no gross wall motion abnormalities. 4. Normal LV volume Low probability for coronary ischemia, based on the above findings Dr Susan Chaudhary MD FAC (Electronically Signed) Final Date: 31 October 2022 12:56 S
[2022-10-31] MEDS: pantoprazole 40 mg SDV IVP (01:54)
[2022-10-31] MEDS: enoxaparin 40 mg/0.4 mL Syringe SUBCUT (01:54)
--- NOTE | 2022-10-31 02:52 | ECG_ITS ---
[facility] Test Date: 2022-10-31 Pat Name: Cary Taylor Department: Room: 256 Gender: Female Cane Flume Watcher: : 1965 Requested By: Adam Pablo Order Number: [id number] Marci MD: Nish Paulino M.D. Measurements Intervals [place] Rate: 79 P: 44 AK: 206 QRS: 7 QRSD: 88 T: 9 QT: 397 QTc: 456 Interpretive Statements SINUS RHYTHM Compared to ECG 10/30/2022 23:24:13 No significant changes Electronically Signed On 10-31-2022 11:59:30 CREDIT RATING INSPECTOR by Nish Paulino M.D. [id number]
[2022-10-31 03:36] LABS: Thyroid Stimulating Hormone 2.48 uIU/mL (0.27-4.20)
[2022-10-31 03:40] LABS: Troponin 5 6HR Delta 0 ng/L (0-12)
[2022-10-31] MEDS: perflutren protein-a microsphr 0.22 mg/mL SDV 3 mL IV (06:00)
[2022-10-31 06:36] LABS: Glucose Point of Care 95 mg/dL (70-110)
[2022-10-31] MEDS: regadenoson 0.4 Mg/5 ml Syringe IVP (07:28)
[2022-10-31] MEDS: losartan 50 mg Tablet 25 MG PO (09:28)
[2022-10-31] MEDS: metoprolol succinate ER (24 HR) 25 mg Tablet PO (09:28)
[2022-10-31] MEDS: cetirizine 10 mg Tablet PO (09:28)
[2022-10-31] MEDS: cholecalciferol (vitamin D3) 1,000 unit Tablet 1000 UNIT PO (09:29)
[2022-10-31] MEDS: venlafaxine ER (24HR) 150 mg Capsule PO (09:29)
--- NOTE | 2022-10-31 10:21 | P.DS_ITS ---
Discharge Providers Date of Admission: 10/31/22 00:58 Date of Discharge: October 31, 2022 Attending Provider at Admission: Kristopher Howell MD Attending Provider at Discharge: Vadim Olguin MD Primary Care Provider: GARRICK Branham Diagnoses at Discharge Discharge Diagnosis (1) Chest pain: Status: Acute (2) Breast cancer, left: Status: Acute (3) CHANI on CPAP: Status: Chronic (4) Generalized anxiety disorder: Status: Chronic (5) Dyslipidemia (high LDL; low HDL): Status: Chronic (6) Benign essential HTN: Status: Chronic (7) Abdominal wall hernia: Status: Acute Reason for Visit Reason for Visit: CP, SOB Hospital Course Hospital Course 57-year-old female without history of coronary disease or CHF presented with chief complaint of left-sided chest pain, stress test was recommended, CTA chest did not show any PE she has high D-dimer likely related to underlying cancer she is scheduled for a lumpectomy on 11/09/2022, she has chronic fat-containing ventral abdominal hernia no signs of strangulation, patient is able to eat, have bowel movement, she is stating that she notices tenderness time to time but it is not bothering her and it is chronic for her. She has seen a surgeon in the past who recommended colonoscopy which she has not followed up with. Clinically doing well, hemodynamically stable, troponins unremarkable EKG without ischemic or infarctive changes. Patient uses CPAP for her sleep apnea. Stress test is without any acute abnormality Physical Exam Narrative: Awake and alert Morbidly obese Abdomen soft, ventral hernia without significant tenderness No active chest pain S1, S2 Doing well on room air Hemodynamically stable Discharge Data Studies Completed and Pending Completed Studies During Hospitalization Category Date Time Status CTA chest CT abdomen pelvis [CT angio chest w abd pel w Cat Scan 10/30/22 21:37 Completed con] Stat XR chest 1V portable [id number] Stat Exams 10/30/22 20:51 Completed Pending at discharge Category Date Time Status Sestamibi Stress Test Request Routine Exams 11/01/22 06:00 Ordered NM emma perf SPECT r/s* [id number] Routine Nuc Med 10/31/22 01:04 Taken CV. echo wo/w contrast [id number] Stat Ultrasound 10/31/22 00:33 Taken Radiology Impressions Chest X-Ray 10/30/22 20:51 IMPRESSION: Minimal infiltrate or atelectasis right lower lobe. Correlate for possible pneumonia. Chest/Abdomen/Pelvis CT 10/30/22 21:37 IMPRESSION: 1. No acute pulmonary disease. 2. No pulmonary embolus. 3. Multiple nodular densities in the left breast. Correlate with mammographic findings. 4. 4 mm solid right upper lobe pulmonary nodule. 5. For patients at low risk (minimal or absent history of smoking and of other known risk factors), no routine follow-up is indicated. For patients at high risk (history of smoking or of other known risk factors), consider IMPRESSION: 1. Hepatomegaly with fatty infiltration of the liver. 2. Bladder wall thickening. Correlate for cystitis. 3. Right sided fat containing ventral abdominal wall hernia with narrow neck, and minimal stranding. Correlate for possible strangulation of the hernia clinically. Laboratory Results WBC 8.4 10^3/uL (4.0-10.0) 10/30/22 20:51 RBC 4.70 10^6/uL (4.1-5.3) 10/30/22 20:51 Hgb 13.3 g/dL (11.5-15.3) 10/30/22 20:51 Hct 41.9 % (37.0-47.0) 10/30/22 20:51 MCV 89.1 fl (81-99) 10/30/22 20:51 MCH 28.3 pg (28.0-34.0) 10/30/22 20:51 MCHC 31.7 g/dL (30.0-36.0) 10/30/22 20:51 RDW 13.3 % (12.1-15.1) 10/30/22 20:51 Plt Count 366 10^3/cmm (130-400) 10/30/22 20:51 MPV 12.1 fL (7.4-10.4) H 10/30/22 20:51 Neut % (Auto) 66.6 % 10/30/22 20:51 Lymph % (Auto) 22.5 % 10/30/22 20:51 [place] % (Auto) 8.2 % 10/30/22 20:51 Eos % (Auto) 2.1 % 10/30/22 20:51 Baso % (Auto) 0.2 % 10/30/22 20:51 Neut # (Auto) 5.60 10^3/uL (1.8-7.7) 10/30/22 20:51 Lymph # (Auto) 1.9 10^3/uL (0.8-4.8) 10/30/22 20:51 [place] # (Auto) 0.7 10^3/uL (0.2-0.9) 10/30/22 20:51 Eos # (Auto) 0.2 10^3/uL (0.0-0.8) 10/30/22 20:51 Baso # (Auto) 0.0 10^3/uL (0.0-0.1) 10/30/22 20:51 Nucleated RBC % (auto) 0 % 10/30/22 20:51 Nucleated RBCs # 0.0 /100WBC 10/30/22 20:51 D-Dimer 3.22 ug/mIFEU (0-0.59) H 10/30/22 20:57 Sodium 142 mmol/L (136-145) 10/30/22 20:51 Potassium 4.1 mmol/L (3.5-5.1) 10/30/22 20:51 Chloride 109 mmol/L (98-107) H 10/30/22 20:51 Carbon Dioxide 20 mmol/L (22-29) L 10/30/22 20:51 Anion Gap 17.1 (5-19) 10/30/22 20:51 BUN 16 mg/dL (6-20) 10/30/22 20:51 Creatinine 0.7 mg/dL (0.5-0.9) 10/30/22 20:51 GFR Calculation 86.2 mL/min (90-130) L 10/30/22 20:51 Glucose 130 mg/dL (65-115) H 10/30/22 20:51 POC Glucose 95 mg/dL (70-110) 10/31/22 06:19 Calculated Osmolality 297 mOsm/kg (285-295) H 10/30/22 20:51 Calcium 8.7 mg/dL (8.5-10.5) 10/30/22 20:51 Magnesium 1.9 mg/dL (1.7-2.3) 10/30/22 22:34 Total Bilirubin 0.2 mg/dL (0.15-1.2) 10/30/22 20:51 AST 16 U/L (0-32) 10/30/22 20:51 ALT 22 U/L (0-33) 10/30/22 20:51 Alkaline Phosphatase 88 U/L (35-105) 10/30/22 20:51 Troponin T Baseline 6 ng/L (0-10) 10/30/22 20:51 Troponin T 120 Minute 6.00 ng/L (0-10) 10/30/22 22:34 Delta Troponin T 0 ABS# (0-10) 10/30/22 22:34 Troponin T Hi Sens 6Hr 6.00 ng/L (0-10) 10/31/22 02:36 Troponin T Hi Sens 6Hr Delta 0 ng/L (0-12) 10/31/22 02:36 NT-Pro-B Natriuret Pep 71 pg/mL (0-125) 10/30/22 20:51 Total Protein 7.0 g/dL (6.6-8.7) 10/30/22 20:51 Albumin 3.5 g/dL (3.5-5.2) 10/30/22 20:51 Globulin 3.5 g/dL (1.3-4.6) 10/30/22 20:51 Lipase 31 U/L (13-60) 10/30/22 20:51 TSH 2.48 uIU/mL (0.27-4.20) 10/31/22 02:36 Urine Color Yellow (Yellow) 10/30/22 21:00 Urine Appearance Clear (CLEAR) 10/30/22 21:00 Urine pH 7 (5-7) 10/30/22 21:00 Ur Specific [place] 1.010 (1.005-1.030) 10/30/22 21:00 Urine Protein Neg (Negative) 10/30/22 21:00 Urine Glucose (UA) Norm (Normal) 10/30/22 21:00 Urine Ketones Negative (Negative) 10/30/22 21:00 Urine Blood Neg (Negative) 10/30/22 21:00 Urine Nitrate Negative (Negative) 10/30/22 21:00 Urine Bilirubin Neg (Negative) 10/30/22 21:00 Urine Urobilinogen Norm mg/dL (Negative) 10/30/22 21:00 Ur Leukocyte Esterase Negative (Negative) 10/30/22 21:00 Influenza Type A Ag negative (Negative) 10/30/22 21:15 Influenza Type B Ag negative (Negative) 10/30/22 21:15 SARS-CoV-2 Ag (Rapid) negative (Negative) 10/30/22 21:15 Vitals Last Vital Signs Temp 97.5 F L 10/31/22 08:27 Pulse 80 10/31/22 08:27 Resp 18 10/31/22 08:27 BP 137/63 10/31/22 09:28 Pulse Ox 98 10/31/22 08:27 O2 Del Method 10/31/22 08:27 FiO2 21 10/31/22 02:46 Discharge Plan Discharge Patient Disposition: Home Condition: Stable Prescriptions: Continued cetirizine [Zyrtec] 10 mg tablet 10 mg PO DAILY nitroglycerin 0.4 mg tablet, sublingual 0.4 mg SUBLINGUAL Q5M PRN (Reason: Chest Pain) calcium carbonate [Calcium 600] 600 mg calcium (1,500 mg) tablet 600 mg PO QDAY PRN (Reason: Heartburn) venlafaxine [Effexor XR] 150 mg capsule,extended release 24hr 150 mg PO QAM Qty: 90 0RF Ozempic 0.25 mg or 0.5 mg(2 mg/1.5 mL) pen injector 0.5 mg SUBCUT .weekly Qty: 4.5 0RF Rx Instructions: ON SUNDAY metoprolol succinate [Toprol XL] 25 mg tablet extended release 24 hr 25 mg PO DAILY Qty: 90 0RF valsartan [Diovan] 80 mg tablet 80 mg PO DAILY Qty: 90 0RF (DME) CPAP supplies See Rx Instructions .Route .MEDSUPPLY Qty: 1 5RF Rx Instructions: As directed nystatin 100,000 unit/gram powder 1 applic TOPICAL BID PRN (Reason: itching) Qty: 30 2RF Label Comments: patient states she has a perscription, but has never needed to take it Discharge Orders: Discharge Order (Routine); Ordered 10/31/22 Ordered By: Vadim Olguin Referrals: Negro Beckford, [employer] [Primary Care Provider] - Discharge Diet: Cardiac Discharge Activity: Resume usual activity Patient Instructions: Opioid Safety Discharge Attestations Time Spent in Discharge Care*: less than 30 min Quality Metrics Clinical Quality Measures [ No reported AMI, CVA or VTE this stay] Coding Level of Care Code Acute Chg FW DC note Diagnoses Chest pain R07.9 Breast cancer, left C50.912 CHANI on CPAP G47.33; Z99.89 Generalized anxiety disorder F41.1 Dyslipidemia (high LDL; low HDL) E78.5 Benign essential HTN I10 Abdominal wall hernia K43.9
[2022-10-31 11:07] LABS: Glucose Point of Care 91 mg/dL (70-110)
[2022-10-31] MEDS: calcium carb-vit d 600mg/400unit 1 Tablet 1 EACH PO (11:09)
--- NOTE | 2022-11-01 07:39 | ECG_ITS ---
[facility] Test Date: 2022-10-31 Pat Name: Cary Taylor Department: Room: 256 Gender: Female Transport Pilot: : 1965 Requested By: Kristopher Howell Order Number: [id number] Marci MD: Susan Chaudhary M.D. Interpretive Statements NAME OF STUDY: LEXISCAN SESTAMIBI STRESS TEST INDICATION: Chest Pain, PROCEDURE: At the baseline, the EKG revealed normal sinus rhythm with a poor R wave progression. The baseline heart was 82 bpm with a blood pressue of 119/81 mm of Hg Lexiscan was infused over a period of 20 seconds. A total of 0.4 milligrams of Lexiscan was infused. The stress phase was continued for a total of 5 minutes. Heart rate at the end of the stress phase was 91 bpm with a blood pressure 103/70 mm of Hg. The EKG at the peak infusion revealed no significant changes. Sestamibi was injected 20 seconds after the Lexiscan infusion. Heart rate at the end of the recovery phase was 92 bpm with a blood pressure of 105/70 mm of Hg. CONCLUSION: 1. No significant EKG changes with the LexiScan infusion 2. No LexiScan induced chest pain or cardiac arrhythmia 3. Normal blood pressure and heart rate response 4. Sestamibi/sestamibi perfusion scan pending; see separate report. Electronically Signed On 11-03-2022 11:42:25 NOC ENGINEER by Susan Chaudhary M.D. [email or web address]
== END 2022-10-31 14:05 | disposition home or self-care (01) ==
LOC: ER 23:59 → MEDSURG 10-31 00:59
PROVIDERS: Admitting Provider Family Medicine; Emergency Provider Emergency Medicine; PCP Nurse Practitioner; Visit Provider Internal Medicine
DX: R07.9 Chest pain, unspecified (principal); R06.02 Shortness of breath; C50.912 Malignant neoplasm of unspecified site of left female breast; G47.33 Obstructive sleep apnea (adult) (pediatric); Z99.89 Dependence on other enabling machines and devices; F41.1 Generalized anxiety disorder; E78.5 Hyperlipidemia, unspecified; K43.9 Ventral hernia without obstruction or gangrene; I11.0 Hypertensive heart disease with heart failure; I50.9 Heart failure, unspecified; E11.9 Type 2 diabetes mellitus without complications; Z87.891 Personal history of nicotine dependence
CPT/HCPCS: 36415; 36416; 71045; 71275; 74177; 78452; 80053; 81003; 82962; 83690; 83735; 83880; 84443; 84484; 85025; 85378; 87426; 87804; 93005; 93017; 94660; 96361; 96372; 96374; 96375; 99285; A9500; C8929; C9113; G0378; J1650; J2270; J2405; J2785; J7030; Q9956; Q9967

== ENCOUNTER 2022-11-09 10:13 | Day surgery (SDC) | payer BC, SELFPAY ==
[2022-11-08 14:30] VITALS: BMI 47.8
[2022-11-09] VITALS (8 sets, daily range): BP systolic 128–186; BP diastolic 74–107; PULSE 78–96; RESP 14–18; TEMP 36.1–36.7; O2SAT 92–100
--- NOTE | 2022-11-09 | US_ITS ---
WS: [id number] ULTRASOUND-GUIDED LEFT BREAST NEEDLE LOCALIZATION CLINICAL INFORMATION: Left breast needle loc for lumpectomy FINDINGS: The procedure including risks, benefits, and complications were discussed with the patient who agreed to proceed. Timeout was performed. Using sterile technique patient was prepped and draped in the usu al sterile fashion. After 1% lidocaine, utilizing real-time ultrasound guidance, 7cm Kopans needle ad vanced into the irregular hypoechoic 1:00 LEFT breast lesion. Next, additional 7 cm Kopans needle was advanced into an adjacent irregular hypoechoic lesion at the 2:00 position No immediate complications. US/US surgical specimen IMPRESSION: 1. Uncomplicated ultrasound-guided LEFT breast needle localization with 2 lesi ons localized. 2. Ultrasound of the surgical specimen demonstrates gross total resection of b oth lesions with intact localization wires. BI-RADS: 6-Known Biopsy-Proven Malignancy FOLLOW UP: See Report
--- NOTE | 2022-11-09 10:00 | US_ITS ---
WS: [id number] ULTRASOUND-GUIDED LEFT BREAST NEEDLE LOCALIZATION CLINICAL INFORMATION: Left breast needle loc for lumpectomy FINDINGS: The procedure including risks, benefits, and complications were discussed with the patient who agreed to proceed. Timeout was performed. Using sterile technique patient was prepped and draped in the usu al sterile fashion. After 1% lidocaine, utilizing real-time ultrasound guidance, 7cm Kopans needle ad vanced into the irregular hypoechoic 1:00 LEFT breast lesion. Next, additional 7 cm Kopans needle was advanced into an adjacent irregular hypoechoic lesion at the 2:00 position No immediate complications. US/[place] [id number] IMPRESSION: 1. Uncomplicated ultrasound-guided LEFT breast needle localization with 2 lesi ons localized. 2. Ultrasound of the surgical specimen demonstrates gross total resection of b oth lesions with intact localization wires. BI-RADS: 6-Known Biopsy-Proven Malignancy FOLLOW UP: See Report
--- NOTE | 2022-11-09 10:55 | SUR.PREOP ---
10:55 CONSENT SIGNED. PT TO RADIOLOGY FOR NEEDLE LOC.
--- NOTE | 2022-11-09 11:43 | NM_ITS ---
WS: [id number] ULTRASOUND-GUIDED LEFT BREAST NEEDLE LOCALIZATION CLINICAL INFORMATION: Left breast needle loc for lumpectomy FINDINGS: The procedure including risks, benefits, and complications were discussed with the patient who agreed to proceed. Timeout was performed. Using sterile technique patient was prepped and draped in the usu al sterile fashion. After 1% lidocaine, utilizing real-time ultrasound guidance, 7cm Kopans needle ad vanced into the irregular hypoechoic 1:00 LEFT breast lesion. Next, additional 7 cm Kopans needle was advanced into an adjacent irregular hypoechoic lesion at the 2:00 position No immediate complications.
--- NOTE | 2022-11-09 11:43 | PC.NURSE ---
Patient was injected with 1.0 mCi Tc99m Tilmanocept Lymphoseek @ 1130 by Ynes Hughes [facility] in the upper outer quadrant of the left breast. No complications. Slight pain with needle stick.
[2022-11-09 12:04] LABS: Glucose Point of Care 81 mg/dL (70-110)
--- NOTE | 2022-11-09 12:13 | W.PM.OPSUD ---
Surgery/Procedure H&P Update DATE OF PROCEDURE: November 09, 2022 DATE H&P PERFORMED: 10/17/22 PREOP DIAGNOSIS: Left breast cancer PLANNED PROCEDURE: Operation Date: 11/09/22 12:20 Proposed Procedures p left breast lumpectomy, sentinal node bx x2, [place] [address], 344[address], 56190, 95306,C50.912(Left) - DO franco Spencer Sentinal Lymph Node Biopsy(Left) - Dom Keller DO
--- NOTE | 2022-11-09 12:15 | SUR.PREOP ---
12:00 returned from radiology.
[2022-11-09] MEDS: sodium chloride 0.9% 1,000 ML 30 ML IV (12:17)
[2022-11-09] MEDS: ceFAZolin 2,000 MG in sodium chloride 0.9% (plus) 50 ML 100 MG IV (12:24)
[2022-11-09] MEDS: isosulfan blue 10 mg/mL SDV 5mL SUBCUT (12:55)
[2022-11-09] MEDS: ceFAZolin 1,000 MG in sodium chloride 0.9% (plus) 50 ML 100 MG IV (13:32)
--- NOTE | 2022-11-09 13:44 | P.OP_ITS ---
Operative Report Date of procedure: November 09, 2022 Pre-op diagnosis: Preop Diagnosis Left breast cancer Post-op diagnosis: same Procedure done: Needle insertion with radiologic correlation left breast lumpectomy with sentinel lymph node biopsy Implants: None Specimens removed/disposition: Left breast lumpectomy-long stitch anterior, short stitch superior, wires lateral [place] lymph nodes Surgeon: Dr. Dom Keller, Anesthesia: General Complications: None apparent Brief History: This a very pleasant 57-year-old female was found to have 2 separate areas adjacent to each other of invasive ductal carcinoma in her left breast. Needle insertion with radiologic correlation left breast lumpectomy with sentinel lymph node biopsy was indicated. The risks and benefits were explained and documented. Procedure: After radiotracer was injected and wire localization was performed by radiology, the patient was brought back into the operating room. She was placed on the OR table in the supine position. The left breast and axilla were inspected prepped and draped in usual sterile fashion. Lymphazurin blue was injected underneath the left nipple and massaged for 5 minutes. A timeout was performed. All present were in agreement. The mass appeared to retract and abut the skin. A 7 cm skin ellipse was made, encompassing both masses at the 1:00 and 2:00 positions. Next, after localization a 6 cm incision was made over the mass, in the 10 o'clock position. Electrocautery was used to carve out a lumpectomy specimen. The entire needle was included. Dissection was carried down to the pectoralis major muscle. Specimen was taken out en bloc. Both masses were included in the specimen.. Wires marked lateral. Short stitch marked superior. Long stitch marked anterior. Skin was anteriolateral. The PlasmaBlade was then used to open the fascia in the axilla. The [place] counter was used to locate a sentinel lymph node. The nipple measured 147 on the [place] counter. 4 sentinel lymph nodes were identified measuring between 14 and 41 on the [place]ha counter. All specimens were passed off to go to pathology along with the surrounding fat. Hemostasis was noted. Hemostasis was achieved with electrocautery. Specimen was sent to radiology who said the clip and wire were surrounded by adequate tissue margins. The dermis was approximated with 3-0 Vicryl. The skin was closed with 4-0 Monocryl in a subcuticular and running fashion. Dermabond was applied. Patient tolerated the procedure well.
--- NOTE | 2022-11-09 14:02 | ANES.PREANE2 ---
Pre-Anesthetic Assessment Height/Weight: Height 1.6 m Weight 122.47 kg Temp Pulse Resp BP Pulse Ox O2 Del Method 98.1 F 81 18 186/107 99 11/09/22 10:34 11/09/22 10:34 11/09/22 10:34 11/09/22 10:34 11/09/22 10:34 11/09/22 10:39 Preop Diagnosis: Left breast cancer Operation Date: 11/09/22 12:20 Proposed Procedures p left breast lumpectomy, sentinal [place]2, [place] [address], [address], 20161, 57000,C50.912(Left) - Dom Keller DO s Sentinal Lymph Node Biopsy(Left) - Dom Keller DO Familial anesthetic complications: none Was Beta Radha taken within 24 hours: Yes Was Clonidine taken within 24 hours: N/A Last intake: Intake Last Liquid Date 11/08/22 Last Liquid Time 18:30 Last Solid Date 11/08/22 Last Solid Time 20:00 Social No alcohol and No tobacco Exam alert, oriented x 3, clear to auscultation bilaterally and regular rate & rhythm Airway Submandibular: within normal limits Cervical ROM: within normal limits Mallampati: Class II Dentition: chipped CV/HEM Hypertension Metabolic Diabetes Mellitus and Morbid Obesity Neuropsych Anxiety and Depression Anesthetic Plan ASA status: 2 Anesthesia: General Medications/Allergies Home Medications Medication Instructions Recorded Confirmed Last Taken Type calcium carbonate 600 mg calcium 600 mg PO QDAY PRN Heartburn 11/12/19 11/09/22 11/07/22 History (1,500 mg) tablet (Calcium) cetirizine 10 mg tablet (Zyrtec) 10 mg PO DAILY 11/12/19 11/09/22 11/09/22 07:00 History nitroglycerin 0.4 mg sublingual 0.4 mg sublingual Q5M PRN Chest 11/12/19 11/08/22 Unknown History tablet Pain CPAP supplies #1 ea 05/10/22 11/07/22 Unknown Rx nystatin 100,000 unit/gram topical 1 applic topical BID PRN itching 05/10/22 11/08/22 1 Month Ago Rx powder #30 grams ~09/30/22 metoprolol succinate 25 mg 25 mg PO DAILY #90 tabs 07/28/22 11/09/22 11/09/22 07:00 Rx tablet,extended release 24 hr (Toprol XL) semaglutide 0.25 mg or 0.5 mg (2 0.5 mg (0.4 mL) SUBCUT .weekly 07/28/22 11/09/22 11/08/22 Rx mg/1.5 mL) subcutaneous pen #4.5 mL injector (Ozempic) valsartan 80 mg tablet (Diovan) 80 mg PO DAILY #90 tabs 07/28/22 11/09/22 11/08/22 Rx venlafaxine 150 mg 150 mg PO QAM #90 caps 07/28/22 11/09/22 11/09/22 07:00 Rx capsule,extended release 24 hr (Effexor XR) doxepin 10 mg capsule 10 mg PO TID #90 caps 11/07/22 11/09/22 11/09/22 07:00 Rx famotidine 40 mg tablet (Pepcid) 40 mg PO DAILY #30 tabs 11/07/22 11/09/22 11/09/22 07:00 Rx polyethylene glycol 3350 17 17 g PO DAILY #510 grams 11/07/22 11/08/22 Unknown Rx gram/dose oral powder (Miralax) docusate sodium 100 mg capsule 100 mg PO BID #20 caps 11/09/22 Unknown Rx (DOK) hydrocodone 7.5 mg-acetaminophen 1 tab PO Q6H PRN pain #20 tabs 11/09/22 Unknown Rx 325 mg tablet Allergies Allergy/AdvReac Type Severity Reaction Status Date / Time naproxen [From Naprosyn] Allergy Hives, Verified 11/07/22 15:14 difficulty breathing Current Medications Generic Name Dose Route Start Last Admin Trade Name Freq PRN Reason Stop Dose Admin Sodium Chloride 1,000 mls @ 30 mls/hr 11/09/22 10:30 11/09/22 12:17 Sodium Chloride 0.9% IV 11/10/22 10:29 30 mls/hr .Q24H MARIAJOSE Administration PFSH Anesthesia Medical History (Updated 11/07/22 @ 15:33 by GARRICK Branham) Abdominal wall hernia Atypical chest pain Benign essential HTN Breast cancer, left Chest pain Controlled diabetes mellitus with hyperglycemia, without long-term current use of insulin Dyslipidemia Dyslipidemia (high LDL; low HDL) Endometrial polyp Generalized anxiety disorder Hypertension Impacted cerumen of both ears CHANI on CPAP Ovarian cyst, left Palpitations (~10/2019) Postmenopausal bleeding Patient was counseled regarding postmenopausal bleeding is bleeding that occurs 12 or more months after the last menstrual period and accounts for 5% of all gynecologic office visits. While it is not always a symptom of cancer, the exclusion of endometrial hyperplasia and carcinoma is the babcock issue in the evaluation of patients with postmenopausal bleeding. The primary evaluation of postmenopausal women who present with abnormal uterine bleeding includes a medical history and a pelvic examination. Studies to evaluate, are a uterine biopsy, ultrasound, hysteroscopy or dilation and curettage, may be required. Treatment will depend on the cause. An office hysteroscopy was recommended. The patient was counseled regarding the procedure. The office hysteroscopy showed an endometrial polyp on the posterior uterine wall. Surgical History History of arthroscopy of left shoulder History of bilateral cataract extraction History of cholecystectomy History of detached retina repair Left eye History of elbow surgery Hx of hernia repair S/P arthroscopic surgery of left knee Status post hysteroscopic polypectomy Family History Father Heart disease Cancer Hyperlipidemia Hypertension Mother Heart disease Thyroid condition Hyperlipidemia Hypertension Grandfather Cancer Maternal--prostate cancer Brother Stroke Unknown No problems noted. Sister Diabetes Hyperlipidemia Hypertension Brother Diabetes Hyperlipidemia Hypertension Grandmother Diabetes maternal Denies family history of Colon cancer Ovarian cancer Clotting disorder Breast cancer Anesthesia complication Bleeding disorder Uterine cancer Social History Smoking and tobacco status: former smoker Quit status (tobacco): has quit using tobacco Year quit tobacco: 2004 Second hand smoke exposure: No Smoking risk assessment/counseling performed?: No Alcohol intake: never Desire information about alcohol rehabilitation?: No Counseling given: No Desire information about substance/drug rehabilitation?: No Counseling given: No Adopted: No Caregiver/support person: No Lives independently: Yes Housing: House Marital status: service: No Current occupational status: employed Current occupation: [employer] Current gender identity: Female Data Anesthesia Cardiac Studies: Echocardiogram 10/31/22 Sestamibi Stress Test (Cardiology) 11/01/22
--- NOTE | 2022-11-09 14:04 | ANE.PACU2 ---
Inpatient post-anesthesia follow up: Airway intact: Yes Vital signs: Temperature 98.1 F Pulse Rate 81 Respiratory Rate 18 Blood Pressure 186/107 Pulse Oximetry 99 Oxygen Delivery Me thod Room Air Oxygen Flow Rate Fraction of Inspir ed Oxygen Hydration adequate: Yes Nausea and vomiting: No Pain level: 2 Mental status: Baseline
[2023-08-16 06:30] LABS: PD-L1 (Clone 22C3) by IHC BBPL See Report
== END 2022-11-09 16:20 | disposition home or self-care (01) ==
PROVIDERS: PCP Nurse Practitioner; Visit Provider Surgery
PROC: (CPT 19120; principal; 2022-11-09 12:10)
PROC: (CPT 19301; 2022-11-09 12:10)
DX: C50.912 Malignant neoplasm of unspecified site of left female breast (principal); I10 Essential (primary) hypertension; E11.9 Type 2 diabetes mellitus without complications; E66.01 Morbid (severe) obesity due to excess calories; Z68.42 Body mass index [BMI] 45.0-49.9, adult; F41.9 Anxiety disorder, unspecified; F32.A Depression, unspecified; G47.33 Obstructive sleep apnea (adult) (pediatric); F41.1 Generalized anxiety disorder; Z87.891 Personal history of nicotine dependence
CPT/HCPCS: 19301; 38500; 19285; 36416; 38792; 82962; 88305; 88307; 88341; 88342; A9520; A9541; C1889; J0330; J0690; J1100; J1170; J2250; J2405; J2704; J3010; J7030; Q9968

== ENCOUNTER 2022-11-17 07:06 | Day surgery (SDC) | payer BC, SELFPAY ==
[2022-11-14 12:12] VITALS: BMI 47.8
[2022-11-17 07:22] VITALS: BP 205/110; PULSE 96; RESP 20; TEMP 36.5; O2SAT 94
[2022-11-17] MEDS: sodium chloride 0.9% 1,000 ML 30 ML IV (07:33)
[2022-11-17 07:39] LABS: Glucose Point of Care 116 mg/dL (70-110)
--- NOTE | 2022-11-17 07:51 | ANES.PREANE2 ---
Pre-Anesthetic Assessment Height/Weight: Height 1.6 m Weight 122.47 kg Temp Pulse Resp BP Pulse Ox O2 Del Method 97.7 F 96 20 H 205/110 94 11/17/22 07:22 11/17/22 07:22 11/17/22 07:22 11/17/22 07:22 11/17/22 07:22 11/17/22 07:22 Preop Diagnosis: Left breast cancer Operation Date: 11/17/22 08:30 Proposed Procedures p Colonoscopy 07959,Z12.11(Not Applicable) - Dom Keller DO Familial anesthetic complications: None Was Beta Radha taken within 24 hours: Yes Was Clonidine taken within 24 hours: N/A Last intake: Intake Last Liquid Date 11/16/22 Last Liquid Time 20:30 Last Solid Date 11/15/22 Last Solid Time 19:00 Social No alcohol and No tobacco Exam alert, oriented x 3, clear to auscultation bilaterally and regular rate & rhythm Airway Mallampati: Class II Dentition: full Pulmonary Sleep Apnea CV/HEM Hypertension and Palpitations GI Gastroesophageal Reflux Disease Metabolic Diabetes Mellitus and Morbid Obesity Neuropsych Cerebrovascular Accident (no residual deficits) Anesthetic Plan ASA status: 3 Anesthesia: MAC Risk of > 500 ml blood loss (7ml/kg in children): No Medications/Allergies Home Medications Medication Instructions Recorded Confirmed Last Taken Type calcium carbonate 600 mg calcium 600 mg PO QDAY PRN Heartburn 11/12/19 11/17/22 11/16/22 History (1,500 mg) tablet (Calcium) cetirizine 10 mg tablet (Zyrtec) 10 mg PO DAILY 11/12/19 11/17/22 11/16/22 History nitroglycerin 0.4 mg sublingual 0.4 mg sublingual Q5M PRN Chest 11/12/19 11/17/22 Unknown History tablet Pain CPAP supplies #1 ea 05/10/22 11/13/22 Unknown Rx nystatin 100,000 unit/gram topical 1 applic topical BID PRN itching 05/10/22 11/17/22 1 Month Ago Rx powder #30 grams ~09/30/22 polyethylene glycol 3350 17 17 g PO DAILY #510 grams 11/07/22 11/17/22 11/16/22 Rx gram/dose oral powder (Miralax) docusate sodium 100 mg capsule 100 mg PO BID #20 caps 11/09/22 11/17/22 11/15/22 Rx (DOK) hydrocodone 7.5 mg-acetaminophen 1 tab PO Q6H PRN pain #20 tabs 11/09/22 11/17/22 Unknown Rx 325 mg tablet doxepin 10 mg capsule 10 mg PO TID #270 caps 11/13/22 11/17/22 11/16/22 Rx famotidine 40 mg tablet (Pepcid) 40 mg PO DAILY #90 tabs 11/13/22 11/17/22 11/16/22 Rx metoprolol succinate 25 mg 25 mg PO DAILY #90 tabs 11/13/22 11/17/22 11/17/22 Rx tablet,extended release 24 hr (Toprol XL) semaglutide 0.25 mg or 0.5 mg (2 0.5 mg (0.4 mL) SUBCUT .weekly 11/13/22 11/17/22 11/16/22 Rx mg/1.5 mL) subcutaneous pen #4.5 mL injector (OzOndeego) valsartan 80 mg tablet (Diovan) 80 mg PO DAILY #90 tabs 11/13/22 11/17/22 11/16/22 Rx venlafaxine 150 mg 150 mg PO QAM #90 caps 11/13/22 11/17/22 11/17/22 Rx capsule,extended release 24 hr (Effexor XR) Allergies Allergy/AdvReac Type Severity Reaction Status Date / Time naproxen [From Naprosyn] Allergy Hives, Verified 11/17/22 07:19 difficulty breathing Current Medications Generic Name Dose Route Start Last Admin Trade Name Freq PRN Reason Stop Dose Admin Sodium Chloride 1,000 mls @ 30 mls/hr 11/17/22 07:15 11/17/22 07:33 Sodium Chloride 0.9% IV 11/18/22 07:14 30 mls/hr .Q24H MARIAJOSE Administration PFSH Anesthesia Medical History Abdominal wall hernia Atypical chest pain Breast cancer, left Chest pain Controlled diabetes mellitus with hyperglycemia, without long-term current use of insulin Dyslipidemia Dyslipidemia (high LDL; low HDL) Endometrial polyp Generalized anxiety disorder Hypertension Impacted cerumen of both ears CHANI on CPAP Ovarian cyst, left Palpitations (~10/2019) Postmenopausal bleeding Patient was counseled regarding postmenopausal bleeding is bleeding that occurs 12 or more months after the last menstrual period and accounts for 5% of all gynecologic office visits. While it is not always a symptom of cancer, the exclusion of endometrial hyperplasia and carcinoma is the babcock issue in the evaluation of patients with postmenopausal bleeding. The primary evaluation of postmenopausal women who present with abnormal uterine bleeding includes a medical history and a pelvic examination. Studies to evaluate, are a uterine biopsy, ultrasound, hysteroscopy or dilation and curettage, may be required. Treatment will depend on the cause. An office hysteroscopy was recommended. The patient was counseled regarding the procedure. The office hysteroscopy showed an endometrial polyp on the posterior uterine wall. Surgical History History of arthroscopy of left shoulder History of bilateral cataract extraction History of cholecystectomy History of detached retina repair Left eye History of elbow surgery Hx of hernia repair S/P arthroscopic surgery of left knee Status post hysteroscopic polypectomy Family History Father Heart disease Cancer Hyperlipidemia Hypertension Mother Heart disease Thyroid condition Hyperlipidemia Hypertension Grandfather Cancer Maternal--prostate cancer Brother Stroke Unknown No problems noted. Sister Diabetes Hyperlipidemia Hypertension Brother Diabetes Hyperlipidemia Hypertension Grandmother Diabetes maternal Denies family history of Colon cancer Ovarian cancer Clotting disorder Breast cancer Anesthesia complication Bleeding disorder Uterine cancer Social History Smoking and tobacco status: former smoker Quit status (tobacco): has quit using tobacco Year quit tobacco: 2004 Second hand smoke exposure: No Smoking risk assessment/counseling performed?: No Alcohol intake: never Desire information about alcohol rehabilitation?: No Counseling given: No Desire information about substance/drug rehabilitation?: No Counseling given: No Adopted: No Caregiver/support person: No Lives independently: Yes Housing: House Marital status: service: No Current occupational status: employed Current occupation: [employer] Current gender identity: Female Data Anesthesia Cardiac Studies: Echocardiogram 10/31/22 Sestamibi Stress Test (Cardiology) 11/01/22
--- NOTE | 2022-11-17 08:16 | PM.HP ---
Providers/Chief Complaint Primary Care Provider: GARRICK Branham Chief Complaint: Z12.11 screening History of Present Illness Cary Taylor is a 57 year old female here for her first screening colonoscopy Medications/Allergies Home Medications Medication Instructions Recorded Confirmed Last Taken Type calcium carbonate 600 mg calcium 600 mg PO QDAY PRN Heartburn 11/12/19 11/17/22 11/16/22 History (1,500 mg) tablet (Calcium) cetirizine 10 mg tablet (Zyrtec) 10 mg PO DAILY 11/12/19 11/17/22 11/16/22 History nitroglycerin 0.4 mg sublingual 0.4 mg sublingual Q5M PRN Chest 11/12/19 11/17/22 Unknown History tablet Pain CPAP supplies #1 ea 05/10/22 11/13/22 Unknown Rx nystatin 100,000 unit/gram topical 1 applic topical BID PRN itching 05/10/22 11/17/22 1 Month Ago Rx powder #30 grams ~09/30/22 polyethylene glycol 3350 17 17 g PO DAILY #510 grams 11/07/22 11/17/22 11/16/22 Rx gram/dose oral powder (Miralax) docusate sodium 100 mg capsule 100 mg PO BID #20 caps 11/09/22 11/17/22 11/15/22 Rx (DOK) hydrocodone 7.5 mg-acetaminophen 1 tab PO Q6H PRN pain #20 tabs 11/09/22 11/17/22 Unknown Rx 325 mg tablet doxepin 10 mg capsule 10 mg PO TID #270 caps 11/13/22 11/17/22 11/16/22 Rx famotidine 40 mg tablet (Pepcid) 40 mg PO DAILY #90 tabs 11/13/22 11/17/22 11/16/22 Rx metoprolol succinate 25 mg 25 mg PO DAILY #90 tabs 11/13/22 11/17/22 11/17/22 Rx tablet,extended release 24 hr (Toprol XL) semaglutide 0.25 mg or 0.5 mg (2 0.5 mg (0.4 mL) SUBCUT .weekly 11/13/22 11/17/22 11/16/22 Rx mg/1.5 mL) subcutaneous pen #4.5 mL injector (Ozempic) valsartan 80 mg tablet (Diovan) 80 mg PO DAILY #90 tabs 11/13/22 11/17/22 11/16/22 Rx venlafaxine 150 mg 150 mg PO QAM #90 caps 11/13/22 11/17/22 11/17/22 Rx capsule,extended release 24 hr (Effexor XR) Allergies Allergy/AdvReac Type Severity Reaction Status Date / Time naproxen [From Naprosyn] Allergy Hives, Verified 11/17/22 07:19 difficulty breathing PFSH Acute PFSH: Medical History Abdominal wall hernia Atypical chest pain Breast cancer, left Chest pain Controlled diabetes mellitus with hyperglycemia, without long-term current use of insulin Dyslipidemia Dyslipidemia (high LDL; low HDL) Endometrial polyp Generalized anxiety disorder Hypertension Impacted cerumen of both ears CHANI on CPAP Ovarian cyst, left Palpitations (~10/2019) Postmenopausal bleeding Patient was counseled regarding postmenopausal bleeding is bleeding that occurs 12 or more months after the last menstrual period and accounts for 5% of all gynecologic office visits. While it is not always a symptom of cancer, the exclusion of endometrial hyperplasia and carcinoma is the babcock issue in the evaluation of patients with postmenopausal bleeding. The primary evaluation of postmenopausal women who present with abnormal uterine bleeding includes a medical history and a pelvic examination. Studies to evaluate, are a uterine biopsy, ultrasound, hysteroscopy or dilation and curettage, may be required. Treatment will depend on the cause. An office hysteroscopy was recommended. The patient was counseled regarding the procedure. The office hysteroscopy showed an endometrial polyp on the posterior uterine wall. Surgical History History of arthroscopy of left shoulder History of bilateral cataract extraction History of cholecystectomy History of detached retina repair Left eye History of elbow surgery Hx of hernia repair S/P arthroscopic surgery of left knee Status post hysteroscopic polypectomy Family History Father Heart disease Cancer Hyperlipidemia Hypertension Mother Heart disease Thyroid condition Hyperlipidemia Hypertension Grandfather Cancer Maternal--prostate cancer Brother Stroke Unknown No problems noted. Sister Diabetes Hyperlipidemia Hypertension Brother Diabetes Hyperlipidemia Hypertension Grandmother Diabetes maternal Denies family history of Colon cancer Ovarian cancer Clotting disorder Breast cancer Anesthesia complication Bleeding disorder Uterine cancer Social History Smoking and tobacco status: former smoker Quit status (tobacco): has quit using tobacco Year quit tobacco: 2004 Second hand smoke exposure: No Smoking risk assessment/counseling performed?: No Alcohol intake: never Desire information about alcohol rehabilitation?: No Counseling given: No Desire information about substance/drug rehabilitation?: No Counseling given: No Adopted: No Caregiver/support person: No Lives independently: Yes Housing: House Marital status: service: No Current occupational status: employed Current occupation: [employer] Current gender identity: Female Vitals/I&O/Wt Last Vital Signs Temp 97.7 F 11/17/22 07:22 Pulse 96 11/17/22 07:22 Resp 20 H 11/17/22 07:22 BP 205/110 11/17/22 07:22 Pulse Ox 94 11/17/22 07:22 O2 Del Method 11/17/22 07:22 A&P Assessment and plan (1) Encounter for screening for malignant neoplasm of colon: Plan Colonoscopy Attestations Medical Necessity Statement*: Home Coding Level of Care Code Acute Code for Chg Fwd Diagnoses Encounter for screening for malignant neoplasm of colon Z12.11
[2022-11-17 08:42] VITALS: BP 131/69; PULSE 89; RESP 16; TEMP 36.2; O2SAT 99
[2022-11-17 08:50] VITALS: BP 164/89; PULSE 86; RESP 16; O2SAT 100
--- NOTE | 2022-11-17 13:23 | ANE.PACU2 ---
Inpatient post-anesthesia follow up: Airway intact: Yes Vital signs: Temperature 97.2 F Pulse Rate 86 Respiratory Rate 16 Blood Pressure 164/89 Pulse Oximetry 100 Oxygen Delivery Me thod Room Air Oxygen Flow Rate Fraction of Inspir ed Oxygen Hydration adequate: Yes Nausea and vomiting: No Pain level: 1 Mental status: Baseline
== END 2022-11-17 09:15 | disposition home or self-care (01) ==
PROVIDERS: PCP Nurse Practitioner; Visit Provider Surgery
PROC: 0DJD8ZZ Inspection of Lower Intestinal Tract, Via Natural or Artificial Opening Endoscopic (ICD-10-PCS; CPT 45378; principal; 2022-11-17 08:30)
DX: Z12.11 Encounter for screening for malignant neoplasm of colon (principal); K64.8 Other hemorrhoids; D12.8 Benign neoplasm of rectum; E78.5 Hyperlipidemia, unspecified; F41.1 Generalized anxiety disorder; I10 Essential (primary) hypertension; G47.33 Obstructive sleep apnea (adult) (pediatric); Z87.891 Personal history of nicotine dependence; K21.9 Gastro-esophageal reflux disease without esophagitis; E11.9 Type 2 diabetes mellitus without complications; E66.01 Morbid (severe) obesity due to excess calories; Z68.42 Body mass index [BMI] 45.0-49.9, adult; Z86.73 Personal history of transient ischemic attack (TIA), and cerebral infarction without residual deficits
CPT/HCPCS: 36416; 45385; 82962; 88305; J2704; J7030

== ENCOUNTER 2022-11-30 07:39 | Oncology outpatient (recurring) (ONCR) | payer BC, SELFPAY ==
[2022-11-30 10:07] LABS: Basophils # 0.1 10^3/uL (0.0-0.1); Basophils % 1.1 %; Eosinophils # 0.4 10^3/uL (0.0-0.8); Eosinophils % 5.5 %; Hemoglobin 13.3 g/dL (11.5-15.3); Lymphocytes % 29.9 %; Mean Corpuscular HGB Conc 30.9 g/dL (30.0-36.0); Mean Corpuscular Hemoglobin 28.1 pg (28.0-34.0); Mean Corpuscular Volume 90.9 fl (81-99); Mean Platelet Volume 11.8 fL (7.4-10.4); Monocytes # 0.5 10^3/uL (0.2-0.9); Neutrophils % 56.2 %; Nucleated Red Blood Cells % 0 %; Platelet Count 343 10^3/cmm (130-400); Red Blood Count 4.73 10^6/uL (4.1-5.3); Red Cell Distribution Width 13.3 % (12.1-15.1); White Blood Count 6.6 10^3/uL (4.0-10.0)
[2022-11-30 11:23] LABS: Alanine Aminotransferase 26 U/L (0-33); Albumin Level 3.7 g/dL (3.5-5.2); Alkaline Phosphatase 104 U/L (35-105); Anion Gap 18.6 (5-19); Aspartate Amino Transferase 22 U/L (0-32); Blood Urea Nitrogen 14 mg/dL (6-20); Calcium 9.8 mg/dL (8.5-10.5); Carbon Dioxide 25 mmol/L (22-29); Chloride 103 mmol/L (98-107); Creatinine Clr Calc Pharmacy 99.2462; Globulin 3.8 g/dL (1.3-4.6); Glomerular Filtration Rate 73.9 mL/min (90-130); Glucose 110 mg/dL (65-115); Osmolality Calculated 295 mOsm/kg (285-295); Potassium 4.6 mmol/L (3.5-5.1); Sodium 142 mmol/L (136-145); Total Bilirubin 0.3 mg/dL (0.15-1.2); Total Protein 7.5 g/dL (6.6-8.7)
[2022-12-29 19:06] LABS: BRCA 1 & 2 Clinical Interpreta NEGATIVE; BRCA 1&2 Result NEGATIVE
== END 2022-12-19 23:59 | disposition home or self-care (01) ==
PROVIDERS: PCP Nurse Practitioner; Visit Provider Internal Medicine Hematology & Oncology
DX: C50.812 Malignant neoplasm of overlapping sites of left female breast (principal); Z17.1 Estrogen receptor negative status [ER-]; Z90.12 Acquired absence of left breast and nipple; R91.1 Solitary pulmonary nodule; K76.0 Fatty (change of) liver, not elsewhere classified; K43.9 Ventral hernia without obstruction or gangrene
CPT/HCPCS: 36415; 80053; 81162; 85025

== ENCOUNTER 2022-12-05 10:36 | Day surgery (SDC) | payer BC, SELFPAY ==
[2022-12-04 08:52] VITALS: BMI 47.8
[2022-12-05] VITALS (10 sets, daily range): BP systolic 133–189; BP diastolic 79–116; PULSE 72–108; RESP 15–18; TEMP 36.7–37; O2SAT 94–100
--- NOTE | 2022-12-05 11:15 | XRR_ITS ---
PROCEDURE INFORMATION: Exam: XR Chest Exam date and time: 12/05/2022 1:59 PM Age: 57 years old Clinical indication: Device placement; Other: Mediport placement; Prior surgery; Surgery date: Post-operative (0-2 days); Additional info: Postop mediport placement TECHNIQUE: Imaging protocol: Radiologic exam of the chest. Views: 1 view. COMPARISON: CR (CHEST, ) 10/30/2022 9:08 PM FINDINGS: Tubes, catheters and devices: There is a right chest port with the line tip appropriately positioned in the lower SVC near the cavoatrial junction. Lungs: Lungs are clear. Pleural spaces: There is no pleural effusion or pneumothorax. Heart/Mediastinum: The cardiac silhouette is within normal limits of size given AP technique. Bones/joints: Bones are unremarkable. XR/XR chest 1V portable 12519 IMPRESSION: Satisfactory chest port position. No pneumothorax.
[2022-12-05 12:02] LABS: Glucose Point of Care 94 mg/dL (70-110)
--- NOTE | 2022-12-05 12:03 | ANES.PREANE2 ---
Pre-Anesthetic Assessment Height/Weight: Height 1.6 m Weight 122.47 kg O2 Del Method 12/05/22 11:27 Preop Diagnosis: Left breast cancer Operation Date: 12/05/22 12:20 Proposed Procedures p 97016 Port placement, N63.21(Not Applicable) - Dom Keller DO Familial anesthetic complications: none Was Beta Radha taken within 24 hours: Yes Was Clonidine taken within 24 hours: N/A Last intake: Intake Last Liquid Date 12/04/22 Last Liquid Time 23:00 Last Solid Date 12/04/22 Last Solid Time 23:00 Social No alcohol and No tobacco Exam alert, oriented x 3, clear to auscultation bilaterally and regular rate & rhythm Airway Submandibular: within normal limits Cervical ROM: within normal limits Mallampati: Class II Dentition: full CV/HEM Hypertension Metabolic Diabetes Mellitus and Morbid Obesity Neuropsych Anxiety, Cerebrovascular Accident and Depression Anesthetic Plan ASA status: 3 Anesthesia: Choice Medications/Allergies Home Medications Medication Instructions Recorded Confirmed Last Taken Type calcium carbonate 600 mg calcium 600 mg PO QDAY PRN Heartburn 11/12/19 12/05/22 11/22/22 History (1,500 mg) tablet (Calcium) cetirizine 10 mg tablet (Zyrtec) 10 mg PO DAILY 11/12/19 12/04/22 12/04/22 History nitroglycerin 0.4 mg sublingual 0.4 mg sublingual Q5M PRN Chest 11/12/19 12/04/22 Unknown History tablet Pain CPAP supplies #1 ea 05/10/22 11/30/22 Unknown Rx nystatin 100,000 unit/gram topical 1 applic topical BID PRN itching 05/10/22 12/04/22 12/03/22 Rx powder #30 grams doxepin 10 mg capsule 10 mg PO TID #270 caps 11/13/22 12/04/22 12/04/22 Rx famotidine 40 mg tablet (Pepcid) 40 mg PO DAILY #90 tabs 11/13/22 12/04/22 12/04/22 Rx metoprolol succinate 25 mg 25 mg PO DAILY #90 tabs 11/13/22 12/04/22 12/05/22 07:00 Rx tablet,extended release 24 hr (Toprol XL) semaglutide 0.25 mg or 0.5 mg (2 0.5 mg (0.4 mL) SUBCUT .weekly 11/13/22 12/04/22 11/29/22 Rx mg/1.5 mL) subcutaneous pen #4.5 mL injector (Ozempic) valsartan 80 mg tablet (Diovan) 80 mg PO DAILY #90 tabs 11/13/22 12/04/22 12/04/22 Rx venlafaxine 150 mg 150 mg PO QAM #90 caps 11/13/22 12/04/22 12/05/22 07:00 Rx capsule,extended release 24 hr (Effexor XR) polyethylene glycol 3350 17 17 g PO DAILY PRN Constipation 11/30/22 12/04/22 Unknown History gram/dose oral powder (Miralax) Allergies Allergy/AdvReac Type Severity Reaction Status Date / Time naproxen [From Naprosyn] Allergy Hives, Verified 12/04/22 08:50 difficulty breathing [facility] Anesthesia Medical History (Updated 12/03/22 @ 21:51 by Carlos Olson MD) Abdominal wall hernia Atypical chest pain Breast cancer, left Breast cancer, left Chest pain Controlled diabetes mellitus with hyperglycemia, without long-term current use of insulin Dyslipidemia Dyslipidemia (high LDL; low HDL) Endometrial polyp Generalized anxiety disorder Hypertension Impacted cerumen of both ears CHANI on CPAP Ovarian cyst, left Palpitations (~10/2019) Postmenopausal bleeding Patient was counseled regarding postmenopausal bleeding is bleeding that occurs 12 or more months after the last menstrual period and accounts for 5% of all gynecologic office visits. While it is not always a symptom of cancer, the exclusion of endometrial hyperplasia and carcinoma is the babcock issue in the evaluation of patients with postmenopausal bleeding. The primary evaluation of postmenopausal women who present with abnormal uterine bleeding includes a medical history and a pelvic examination. Studies to evaluate, are a uterine biopsy, ultrasound, hysteroscopy or dilation and curettage, may be required. Treatment will depend on the cause. An office hysteroscopy was recommended. The patient was counseled regarding the procedure. The office hysteroscopy showed an endometrial polyp on the posterior uterine wall. Surgical History (Updated 11/28/22 @ 16:42 by Dom Keller DO) History of arthroscopy of left shoulder History of bilateral cataract extraction History of cholecystectomy History of detached retina repair Left eye History of elbow surgery History of lumpectomy of left breast Hx of hernia repair S/P arthroscopic surgery of left knee Status post hysteroscopic polypectomy Family History Father Heart disease Cancer Hyperlipidemia Hypertension Mother Heart disease Thyroid condition Hyperlipidemia Hypertension Grandfather Cancer Maternal--prostate cancer Brother Stroke Unknown No problems noted. Sister Diabetes Hyperlipidemia Hypertension Brother Diabetes Hyperlipidemia Hypertension Grandmother Diabetes maternal Denies family history of Colon cancer Ovarian cancer Clotting disorder Breast cancer Anesthesia complication Bleeding disorder Uterine cancer Social History Smoking and tobacco status: former smoker Quit status (tobacco): has quit using tobacco Year quit tobacco: 2004 Second hand smoke exposure: No Smoking risk assessment/counseling performed?: No Alcohol intake: never Desire information about alcohol rehabilitation?: No Counseling given: No Desire information about substance/drug rehabilitation?: No Counseling given: No Adopted: No Caregiver/support person: No Lives independently: Yes Housing: House Marital status: service: No Current occupational status: employed Current occupation: [employer] Current gender identity: Female Data Anesthesia Cardiac Studies: Echocardiogram 10/31/22 Sestamibi Stress Test (Cardiology) 11/01/22
[2022-12-05] MEDS: sodium chloride 0.9% 1,000 ML 30 ML IV (12:13)
--- NOTE | 2022-12-05 12:18 | PM.HP ---
Providers/Chief Complaint Primary Care Provider: GARRICK Branham Chief Complaint: Unspecified lump in the left breast, upper outer q History of Present Illness Cary Taylor is a 57 year old female who is well-known to me following lumpectomy of a left breast cancer. Oncology is requesting Mediport placement. Medications/Allergies Home Medications Medication Instructions Recorded Confirmed Last Taken Type calcium carbonate 600 mg calcium 600 mg PO QDAY PRN Heartburn 11/12/19 12/05/22 11/22/22 History (1,500 mg) tablet (Calcium) cetirizine 10 mg tablet (Zyrtec) 10 mg PO DAILY 11/12/19 12/04/22 12/04/22 History nitroglycerin 0.4 mg sublingual 0.4 mg sublingual Q5M PRN Chest 11/12/19 12/04/22 Unknown History tablet Pain CPAP supplies #1 ea 05/10/22 11/30/22 Unknown Rx nystatin 100,000 unit/gram topical 1 applic topical BID PRN itching 05/10/22 12/04/22 12/03/22 Rx powder #30 grams doxepin 10 mg capsule 10 mg PO TID #270 caps 11/13/22 12/04/22 12/04/22 Rx famotidine 40 mg tablet (Pepcid) 40 mg PO DAILY #90 tabs 11/13/22 12/04/22 12/04/22 Rx metoprolol succinate 25 mg 25 mg PO DAILY #90 tabs 11/13/22 12/04/22 12/05/22 07:00 Rx tablet,extended release 24 hr (Toprol XL) semaglutide 0.25 mg or 0.5 mg (2 0.5 mg (0.4 mL) SUBCUT .weekly 11/13/22 12/04/22 11/29/22 Rx mg/1.5 mL) subcutaneous pen #4.5 mL injector (Ozempic) valsartan 80 mg tablet (Diovan) 80 mg PO DAILY #90 tabs 11/13/22 12/04/22 12/04/22 Rx venlafaxine 150 mg 150 mg PO QAM #90 caps 11/13/22 12/04/22 12/05/22 07:00 Rx capsule,extended release 24 hr (Effexor XR) polyethylene glycol 3350 17 17 g PO DAILY PRN Constipation 11/30/22 12/04/22 Unknown History gram/dose oral powder (Miralax) Allergies Allergy/AdvReac Type Severity Reaction Status Date / Time naproxen [From Naprosyn] Allergy Hives, Verified 12/04/22 08:50 difficulty breathing PFSH Acute PFSH: Medical History (Updated 12/03/22 @ 21:51 by Carlos Olson MD) Abdominal wall hernia Atypical chest pain Breast cancer, left Breast cancer, left Chest pain Controlled diabetes mellitus with hyperglycemia, without long-term current use of insulin Dyslipidemia Dyslipidemia (high LDL; low HDL) Endometrial polyp Generalized anxiety disorder Hypertension Impacted cerumen of both ears CHANI on CPAP Ovarian cyst, left Palpitations (~10/2019) Postmenopausal bleeding Patient was counseled regarding postmenopausal bleeding is bleeding that occurs 12 or more months after the last menstrual period and accounts for 5% of all gynecologic office visits. While it is not always a symptom of cancer, the exclusion of endometrial hyperplasia and carcinoma is the babcock issue in the evaluation of patients with postmenopausal bleeding. The primary evaluation of postmenopausal women who present with abnormal uterine bleeding includes a medical history and a pelvic examination. Studies to evaluate, are a uterine biopsy, ultrasound, hysteroscopy or dilation and curettage, may be required. Treatment will depend on the cause. An office hysteroscopy was recommended. The patient was counseled regarding the procedure. The office hysteroscopy showed an endometrial polyp on the posterior uterine wall. Surgical History (Updated 11/28/22 @ 16:42 by Dom Keller DO) History of arthroscopy of left shoulder History of bilateral cataract extraction History of cholecystectomy History of detached retina repair Left eye History of elbow surgery History of lumpectomy of left breast Hx of hernia repair S/P arthroscopic surgery of left knee Status post hysteroscopic polypectomy Family History Father Heart disease Cancer Hyperlipidemia Hypertension Mother Heart disease Thyroid condition Hyperlipidemia Hypertension Grandfather Cancer Maternal--prostate cancer Brother Stroke Unknown No problems noted. Sister Diabetes Hyperlipidemia Hypertension Brother Diabetes Hyperlipidemia Hypertension Grandmother Diabetes maternal Denies family history of Colon cancer Ovarian cancer Clotting disorder Breast cancer Anesthesia complication Bleeding disorder Uterine cancer Social History Smoking and tobacco status: former smoker Quit status (tobacco): has quit using tobacco Year quit tobacco: 2004 Second hand smoke exposure: No Smoking risk assessment/counseling performed?: No Alcohol intake: never Desire information about alcohol rehabilitation?: No Counseling given: No Desire information about substance/drug rehabilitation?: No Counseling given: No Adopted: No Caregiver/support person: No Lives independently: Yes Housing: House Marital status: service: No Current occupational status: employed Current occupation: [employer] Current gender identity: Female Vitals/I&O/Wt Last Vital Signs Pulse 82 12/05/22 12:05 Resp 16 12/05/22 12:05 BP 133/98 12/05/22 12:05 Pulse Ox 97 12/05/22 12:05 O2 Del Method 12/05/22 12:05 Weight last 48 hrs Weight 270 lb A&P Assessment and plan (1) Breast cancer, left: Plan Mediport placement The risks and benefits of the procedure, including but not limited to, bleeding, infection, infection requiring Mediport removal antibiotic therapy and repeat surgery, damage to surrounding structures, scar, numbness, pain, pneumothorax requiring thoracostomy tube, were explained to the patient. He/She is understanding of the risks and wishes to proceed. Attestations Medical Necessity Statement*: Home Coding Level of Care Code Acute Code for g Fwd Diagnoses Breast cancer, left C50.912
[2022-12-05] MEDS: ceFAZolin 3,000 MG in sodium chloride 0.9% (100 ml) 100 ML 200 MG IV (12:41)
[2022-12-05] MEDS: sodium chloride 0.9% 100 mL Bag XX (13:07)
[2022-12-05] MEDS: heparin, porcine 1,000 unit/mL INJ 10 mL 10000 UNIT INJECTION (13:08)
[2022-12-05] MEDS: lidocaine-epi 2% PF 1:200,000 20 mL SDV XX (13:08)
--- NOTE | 2022-12-05 13:14 | P.OP_ITS ---
Operative Report Date of procedure: December 05, 2022 Pre-op diagnosis: Preop Diagnosis Left breast cancer Post-op diagnosis: same Procedure done: Mediport insertion Implants: PowerPort Surgeon: Dr. Dom Keller, DO Anesthesia: MAC Estimated blood loss (mL): 5 Complications: None apparent Brief History: This is a very pleasant 57-year-old female who recently underwent a left breast lumpectomy with sentinel lymph node biopsy. Oncology requested a Mediport. The risks and benefits were explained and documented. Procedure: The patient was taken to the operating room and placed supine on the operating room table. All bony prominences were padded. She was given IV sedation and monitored throughout the case by the anesthesia personnel. SCDs were placed and turned on. The arms were tucked to the side. Patient received Ancef 2 g preoperatively IV. The bilateral chest wall was prepped and draped in usual sterile fashion using chlorhexidine base prep. Sterile drapes were applied. We did procedure pause prior to beginning. An 18 gauge needle was placed in the right subclavian vein. Dark, nonpulsatile blood was aspirated. A guidewire was placed through the needle centrally toward the atrial/vena caval junction. Fluoroscopy visualized good placement. The needle was removed and the guidewire was clipped to the drape with a hemostat. Further local anesthetic was infiltrated in the soft tissues of the right chest wall and a #15 blade was used to make a horizontal skin incision. A subcutaneous Mediport pocket was created using Bovie cautery, dissecting down through the s kin and subcutaneous tissues. Meticulous hemostasis was achieved. The Mediport was sutured in position using 3-0 vicryl suture x2 stitches. A #15 blade was used to make a small skin tung around the guidewire insertion area. The Mediport tubing was tunneled through the subcutaneous tissues up to the needle insertion location. A dilator with a peel-away sheath was placed over the guidewire and placed centrally. After measuring the Mediport tubing was cut to length so that the tip would end at the atrial/vena caval junction. The inner cannula and the guidewire were removed, leaving the dilator sheath in place. The Mediport was flushed. The tip of the catheter was inserted through the peel-away sheath and the peel-away sheath removed in the standard fashion. The Mediport was accessed with a straight Skinner needle and dark, nonpulsatile blood was aspirated and flushed using heparinized saline to hep-lock the Mediport. Final fluoroscopy visualization showed no kink in the catheter and the tip of the Mediport tubing near the atrial/vena caval junction. Both skin incisions were thoroughly irrigated and suctioned dry. Meticulous hemostasis noted. The dermis was approximated with 3-0 Vicryl in an interrupted fashion. Skin was closed with Dermabond. Patient was awakened from anesthesia and transferred via her cart to the recovery room in stable condition. All needle, sponge, and instrument counts were correct per the operating personnel x2 counts.
[2022-12-05] MEDS: hyDRALAzine 20 mg/mL INJ 1 mL (13:56)
--- NOTE | 2022-12-05 16:16 | ANE.PACU2 ---
Inpatient post-anesthesia follow up: Airway intact: Yes Vital signs: Temperature 98.1 F Pulse Rate 90 Respiratory Rate 16 Blood Pressure 162/94 Pulse Oximetry 100 Oxygen Delivery Me thod Room Air Oxygen Flow Rate 6 Fraction of Inspir ed Oxygen Hydration adequate: Yes Nausea and vomiting: No Pain level: 1 Mental status: Baseline
== END 2022-12-05 14:50 | disposition home or self-care (01) ==
PROVIDERS: PCP Nurse Practitioner; Visit Provider Surgery
PROC: (CPT 36561; principal; 2022-12-05 12:00)
DX: C50.912 Malignant neoplasm of unspecified site of left female breast (principal); I10 Essential (primary) hypertension; E11.9 Type 2 diabetes mellitus without complications; E66.01 Morbid (severe) obesity due to excess calories; Z68.42 Body mass index [BMI] 45.0-49.9, adult; Z86.73 Personal history of transient ischemic attack (TIA), and cerebral infarction without residual deficits; E78.5 Hyperlipidemia, unspecified; G47.33 Obstructive sleep apnea (adult) (pediatric); Z87.891 Personal history of nicotine dependence
CPT/HCPCS: 36561; 36416; 71045; 77001; 82962; C1788; J0360; J0690; J1644; J2704; J3010; J7030

== ENCOUNTER 2023-01-08 06:17 | Outpatient (CLI) | payer BC, SELFPAY ==
--- NOTE | 2023-01-08 06:30 | USCV_ITS ---
Cary Taylor Age: 57 Gender: F : 1965 Exam Date: 01/08/2023 06:25 Ordering Phys: Carlos Olson MD Technologist: Jeff Ariza Exam Location: [facility] [place] Indication: base line BP: 130 / 80 HR: 83 Rhythm: Sinus Technical Quality: Adequate MEASUREMENTS (Male / Female) Normal Values 2D ECHO LVOT Diameter 2.0 cm LV Ejection Fraction MOD 2C 64.3 % LV Ejection Fraction 2C AL 62.5 % LA Diameter 3.6 cm M-MODE Aortic Annulus Diameter 3.3 cm LA Ao Ratio MM 1.2 MV E Point Septal Separation 1.0 cm DOPPLER AV Peak Velocity 143.0 cm/s LVOT Peak Velocity 93.0 cm/s AV Area Cont Eq vti 2.1 cm squared AV Area Cont Eq pk 2.0 cm squared MV Area PHT 5.0 cm squared Mitral E to A Ratio 1.1 MV E' Velocity 51.0 cm/s Mitral E to MV E' Ratio 7.6 Mitral E to LV E' Lateral Ratio 9.0 Mitral E to LV E' Septal Ratio 6.6 TR Peak Velocity 233.0 cm/s TR Peak Gradient 21.7 mmHg TV Peak E Velocity 128.0 cm/s Right Atrial Pressure 3.0 mmHg Pulmonary Artery Systolic Pressu 24.7 mmHg RV Acceleration Time 0.1 s FINDINGS Left Ventricle Normal left ventricular size and systolic function, EF 66 %. No regional wall motion abnormalities. Right Ventricle Possibly of normal size and ejection fraction Right Atrium Appears to be normal size Left Atrium Normal size Mitral Valve No gross abnormalities were noted Aortic Valve No gross abnormalities noted Tricuspid Valve Tricuspid valve not well visualized. Pulmonic Valve Pulmonic valve not well visualized. Pericardium No pericardial effusion. Aorta Normal aortic annulus size. IVC Inferior vena cava not visualized. CONCLUSIONS Normal left ventricular size and systolic function, EF 66 %. No regional wall motion abnormalities. Possibly normal chamber sizes No gross valvular abnormalities. There is no pericardial effusion. Comparison with the previous study is difficult because of the difference in the technical quality. Dr Susan Chaudhary MD FACC (Electronically Signed) Final Date: 08 January 2023 08:04 S
== END 2023-01-08 06:18 | disposition home or self-care (01) ==
LOC: RAD 06:17
PROVIDERS: PCP Nurse Practitioner; Visit Provider Internal Medicine Hematology & Oncology
DX: C50.912 Malignant neoplasm of unspecified site of left female breast (principal)
CPT/HCPCS: 93306

== ENCOUNTER 2023-01-19 09:30 | Oncology outpatient (recurring) (ONCR) | payer BC, SELFPAY ==
[2023-01-12 09:53] LABS: Basophils # 0.1 10^3/uL (0.0-0.1); Basophils % 1.1 %; Eosinophils # 0.2 10^3/uL (0.0-0.8); Eosinophils % 3.4 %; Hematocrit 37.3 % (37.0-47.0); Hemoglobin 11.7 g/dL (11.5-15.3); Lymphocytes # 1.9 10^3/uL (0.8-4.8); Lymphocytes % 30.5 %; Mean Corpuscular HGB Conc 31.4 g/dL (30.0-36.0); Mean Corpuscular Hemoglobin 27.8 pg (28.0-34.0); Mean Corpuscular Volume 88.6 fl (81-99); Mean Platelet Volume 11.2 fL (7.4-10.4); Monocytes # 0.6 10^3/uL (0.2-0.9); Monocytes % 9.3 %; Neutrophils # 3.41 10^3/uL (1.8-7.7); Neutrophils % 55.4 %; Nucleated Red Blood Cells % 0 %; Platelet Count 323 10^3/cmm (130-400); Red Blood Count 4.21 10^6/uL (4.1-5.3); Red Cell Distribution Width 13.6 % (12.1-15.1); White Blood Count 6.2 10^3/uL (4.0-10.0)
[2023-01-12 10:13] LABS: Alanine Aminotransferase 19 U/L (0-33); Albumin Level 3.7 g/dL (3.5-5.2); Alkaline Phosphatase 92 U/L (35-105); Anion Gap 12.3 (5-19); Aspartate Amino Transferase 22 U/L (0-32); Blood Urea Nitrogen 17 mg/dL (6-20); Calcium 8.8 mg/dL (8.5-10.5); Carbon Dioxide 26 mmol/L (22-29); Chloride 105 mmol/L (98-107); Globulin 3.5 g/dL (1.3-4.6); Glomerular Filtration Rate 86.2 mL/min (90-130); Glucose 101 mg/dL (65-115); Osmolality Calculated 290 mOsm/kg (285-295); Potassium 4.3 mmol/L (3.5-5.1); Sodium 139 mmol/L (136-145); Total Bilirubin 0.2 mg/dL (0.15-1.2); Total Protein 7.2 g/dL (6.6-8.7)
[2023-01-18 12:23] LABS: Basophils # 0.1 10^3/uL (0.0-0.1); Eosinophils # 0.2 10^3/uL (0.0-0.8); Eosinophils % 3.2 %; Hematocrit 36.8 % (37.0-47.0); Hemoglobin 11.9 g/dL (11.5-15.3); Lymphocytes # 2.2 10^3/uL (0.8-4.8); Lymphocytes % 30.4 %; Mean Corpuscular HGB Conc 32.3 g/dL (30.0-36.0); Mean Corpuscular Hemoglobin 28.7 pg (28.0-34.0); Mean Corpuscular Volume 88.9 fl (81-99); Mean Platelet Volume 11.5 fL (7.4-10.4); Monocytes # 0.6 10^3/uL (0.2-0.9); Monocytes % 8.8 %; Neutrophils # 4.06 10^3/uL (1.8-7.7); Nucleated Red Blood Cells % 0 %; Platelet Count 325 10^3/cmm (130-400); Red Blood Count 4.14 10^6/uL (4.1-5.3); Red Cell Distribution Width 13.6 % (12.1-15.1); White Blood Count 7.2 10^3/uL (4.0-10.0)
[2023-01-18 12:39] LABS: Alanine Aminotransferase 23 U/L (0-33); Albumin Level 3.5 g/dL (3.5-5.2); Alkaline Phosphatase 91 U/L (35-105); Anion Gap 11.1 (5-19); Aspartate Amino Transferase 19 U/L (0-32); Blood Urea Nitrogen 12 mg/dL (6-20); Calcium 9.1 mg/dL (8.5-10.5); Carbon Dioxide 28 mmol/L (22-29); Chloride 100 mmol/L (98-107); Globulin 3.6 g/dL (1.3-4.6); Glomerular Filtration Rate 86.2 mL/min (90-130); Glucose 89 mg/dL (65-115); Osmolality Calculated 279 mOsm/kg (285-295); Potassium 4.1 mmol/L (3.5-5.1); Sodium 135 mmol/L (136-145); Total Bilirubin 0.2 mg/dL (0.15-1.2); Total Protein 7.1 g/dL (6.6-8.7)
[2023-01-18] MEDS: sodium chloride 0.9% 250 ML 100 ML IV (13:25)
[2023-01-18] MEDS: OLANZapine 5 mg TABLET PO (13:26)
[2023-01-18] MEDS: famotidine 20 mg/2 mL INJ IVP (13:26)
[2023-01-18] MEDS: diphenhydrAMINE 50 mg/mL SDV 1mL 25 MG IVP (13:29)
[2023-01-18] MEDS: palonosetron 0.25 mg/5 mL SDV IVP (13:30)
[2023-01-18] MEDS: fosaprepitant 150 MG in sodium chloride 0.9% 150 ML 300 MG IV (13:42)
[2023-01-18] MEDS: DOXOrubicin 2 mg/ml MDV 132 MG IVP (14:46)
[2023-01-18 16:19] VITALS: BP 114/60; PULSE 87; TEMP 37.1; O2SAT 94
[2023-01-19 09:20] VITALS: BP 156/81; PULSE 96; TEMP 36.7
[2023-01-19] MEDS: pegfilgrastim-bmez 6 mg/0.6 mL SYR SUBCUT (09:35)
== END 2023-01-19 23:59 | disposition home or self-care (01) ==
PROVIDERS: PCP Nurse Practitioner; Visit Provider Internal Medicine Hematology & Oncology
DX: C50.812 Malignant neoplasm of overlapping sites of left female breast (principal); Z17.0 Estrogen receptor positive status [ER+]; Z90.12 Acquired absence of left breast and nipple; Z79.899 Other long term (current) drug therapy
CPT/HCPCS: 36591; 80053; 85025; 96361; 96367; 96372; 96375; 96411; 96413; J1100; J1200; J1453; J2469; J3490; J7040; J7050; J9000; J9070; Q5120

== ENCOUNTER 2023-02-16 10:00 | Oncology outpatient (recurring) (ONCR) | payer BC, SELFPAY ==
[2023-01-25 08:37] VITALS: BP 134/84; PULSE 90; RESP 18; TEMP 36.6; O2SAT 98
[2023-01-25 08:50] LABS: Basophils % 0.9 %; Eosinophils # 0.1 10^3/uL (0.0-0.8); Eosinophils % 7.3 %; Hematocrit 33.3 % (37.0-47.0); Hemoglobin 10.6 g/dL (11.5-15.3); Lymphocytes # 0.8 10^3/uL (0.8-4.8); Lymphocytes % 73.6 %; Mean Corpuscular HGB Conc 31.8 g/dL (30.0-36.0); Mean Corpuscular Hemoglobin 28.1 pg (28.0-34.0); Mean Corpuscular Volume 88.3 fl (81-99); Mean Platelet Volume 11.6 fL (7.4-10.4); Monocytes # 0.1 10^3/uL (0.2-0.9); Monocytes % 4.5 %; Neutrophils % 12.8 %; Nucleated Red Blood Cells % 0 %; Platelet Count 217 10^3/cmm (130-400); Red Blood Count 3.77 10^6/uL (4.1-5.3); Red Cell Distribution Width 13.4 % (12.1-15.1); White Blood Count 1.1 10^3/uL (4.0-10.0)
[2023-01-25 08:54] LABS: Estmated Average Glucose 114; Hemoglobin A1C 5.6 % (4.0-6.0)
[2023-01-25 09:02] LABS: Alanine Aminotransferase 11 U/L (0-33); Alkaline Phosphatase 88 U/L (35-105); Aspartate Amino Transferase 15 U/L (0-32); Blood Urea Nitrogen 15 mg/dL (6-20); Calcium 8.3 mg/dL (8.5-10.5); Carbon Dioxide 24 mmol/L (22-29); Chloride 107 mmol/L (98-107); Globulin 3.2 g/dL (1.3-4.6); Glucose 118 mg/dL (65-115); Osmolality Calculated 288 mOsm/kg (285-295); Sodium 138 mmol/L (136-145); Total Bilirubin 0.3 mg/dL (0.15-1.2); Total Protein 6.2 g/dL (6.6-8.7)
[2023-01-25 09:23] LABS: Neutrophils # 0.14 10^3/uL (1.8-7.7); Slide Review Slide Review Perform
[2023-02-01 09:30] VITALS: BMI 38.4
[2023-02-01 09:36] LABS: Hematocrit 35.8 % (37.0-47.0); Hemoglobin 11.4 g/dL (11.5-15.3); Mean Corpuscular HGB Conc 31.8 g/dL (30.0-36.0); Mean Corpuscular Hemoglobin 28.4 pg (28.0-34.0); Mean Corpuscular Volume 89.3 fl (81-99); Mean Platelet Volume 10.4 fL (7.4-10.4); Platelet Count 319 10^3/cmm (130-400); Red Blood Count 4.01 10^6/uL (4.1-5.3); Red Cell Distribution Width 13.5 % (12.1-15.1); White Blood Count 11.6 10^3/uL (4.0-10.0)
[2023-02-01 09:54] LABS: Alanine Aminotransferase 17 U/L (0-33); Albumin Level 3.4 g/dL (3.5-5.2); Alkaline Phosphatase 98 U/L (35-105); Anion Gap 14.3 (5-19); Aspartate Amino Transferase 15 U/L (0-32); Blood Urea Nitrogen 13 mg/dL (6-20); Calcium 9.1 mg/dL (8.5-10.5); Carbon Dioxide 26 mmol/L (22-29); Chloride 103 mmol/L (98-107); Globulin 3.5 g/dL (1.3-4.6); Glomerular Filtration Rate 73.9 mL/min (90-130); Glucose 96 mg/dL (65-115); Osmolality Calculated 288 mOsm/kg (285-295); Potassium 4.3 mmol/L (3.5-5.1); Sodium 139 mmol/L (136-145); Total Bilirubin 0.2 mg/dL (0.15-1.2); Total Protein 6.9 g/dL (6.6-8.7)
[2023-02-01 10:22] LABS: Absolute Segmented Neutrophil 5.8 10/cmm (1.6-7.1); Band Neutrophils Absolute 1.2 10^3/cmm (0.0-1.2); Segmented Neutrophils 50 %; Total Cells Counted 100 (0-100)
[2023-02-01 10:23] LABS: Absolute Eosinophils 0.2 10^3/cmm (0.0-0.7); Basophils Absolute 0.1 10^3/cmm (0.0-0.2); Eosinophils 2 %; Giant Platelets 1+; Lymphocytes 14 %; Microcytosis 1+; Monocytes Absolute 1.3 10^3/cmm (0.1-0.6); Platelet Estimate Normal (Normal); Polychromasia 1+
--- NOTE | 2023-02-01 11:00 | FL_ITS ---
WS: [id number] EXAMINATION: FL fluoroscopy [id number] REASON FOR EXAM: Evaluate Port-A-Cath patency COMPARISON: None available. ORDER DATE: 02/01/2023 10:34 AM FLUOROSCOPY TIME: 0min [id number] # OF SPOT FILMS: 6 FINDINGS: Port-A-Cath was accessed by nursing service utilizing vascular contrast injected Port-A-Cath and demo nstrates satisfactory opacification the reservoir and tubing although would not aspirate initially. C ontrast under considerable pressure demonstrates retrograde opacification along the tip of the cathet er tubing which is located at the mid right atrial level. IR/[place] [id number] IMPRESSION: The slightly greater width of the catheter on the postcontrast images due to la minar pooling of contrast and the small linear amount of contrast separate from the catheter indicate the presence of a prominent fibrin sheath surrounding th e catheter..
[2023-02-01] MEDS: alteplase 1 mg/mL SDV 2 mL 2 MG INTRACATH (11:01)
[2023-02-01] MEDS: iohexol 300 mg/mL 100 mL Btl IV (11:02)
[2023-02-01] MEDS: sodium chloride 0.9% 250 ML 75 ML IV ×2 (12:06→14:15)
[2023-02-01] MEDS: OLANZapine 5 mg TABLET PO (12:11)
[2023-02-01] MEDS: famotidine 20 mg/2 mL INJ IVP (12:12)
[2023-02-01] MEDS: diphenhydrAMINE 50 mg/mL SDV 1mL 25 MG IVP (12:16)
[2023-02-01] MEDS: palonosetron 0.25 mg/5 mL SDV IVP (12:26)
[2023-02-01] MEDS: fosaprepitant 150 MG in sodium chloride 0.9% 150 ML 300 MG IV (12:52)
[2023-02-01] MEDS: DOXOrubicin 2 mg/ml MDV 132 MG IVP (13:52)
[2023-02-01] MEDS: sodium chloride 0.9% 250 ML 50 ML IV (14:15)
[2023-02-01 15:45] VITALS: BP 113/74; PULSE 91; RESP 16; TEMP 35.8; O2SAT 96
[2023-02-02 10:00] VITALS: BP 130/85; PULSE 92; TEMP 36.2; O2SAT 98
[2023-02-02] MEDS: pegfilgrastim-bmez 6 mg/0.6 mL SYR SUBCUT (10:10)
[2023-02-08 12:25] VITALS: BP 118/73; PULSE 83; RESP 18; TEMP 36.4; O2SAT 99
[2023-02-08 12:38] LABS: Basophils % 2.9 %; Hematocrit 31.4 % (37.0-47.0); Hemoglobin 10.2 g/dL (11.5-15.3); Lymphocytes # 0.8 10^3/uL (0.8-4.8); Mean Corpuscular HGB Conc 32.5 g/dL (30.0-36.0); Mean Corpuscular Hemoglobin 28.6 pg (28.0-34.0); Mean Platelet Volume 10.3 fL (7.4-10.4); Monocytes # 0.1 10^3/uL (0.2-0.9); Monocytes % 8.7 %; Neutrophils % 10.4 %; Nucleated Red Blood Cells % 0 %; Platelet Count 230 10^3/cmm (130-400); Red Blood Count 3.57 10^6/uL (4.1-5.3); Red Cell Distribution Width 13.6 % (12.1-15.1)
[2023-02-08 12:51] LABS: Alanine Aminotransferase < 5 U/L (0-33); Albumin Level 3.2 g/dL (3.5-5.2); Alkaline Phosphatase 92 U/L (35-105); Anion Gap 12.3 (5-19); Aspartate Amino Transferase 15 U/L (0-32); Blood Urea Nitrogen 12 mg/dL (6-20); Calcium 8.8 mg/dL (8.5-10.5); Carbon Dioxide 25 mmol/L (22-29); Chloride 105 mmol/L (98-107); Globulin 3.1 g/dL (1.3-4.6); Glomerular Filtration Rate 127.2 mL/min (90-130); Glucose 87 mg/dL (65-115); Osmolality Calculated 285 mOsm/kg (285-295); Potassium 4.3 mmol/L (3.5-5.1); Sodium 138 mmol/L (136-145); Total Bilirubin 0.2 mg/dL (0.15-1.2); Total Protein 6.3 g/dL (6.6-8.7)
[2023-02-08 12:56] LABS: Neutrophils # 0.11 10^3/uL (1.8-7.7)
[2023-02-08 12:57] LABS: Slide Review Slide Review Perform
[2023-02-15 09:00] VITALS: BP 130/81; PULSE 60; RESP 18; TEMP 36.2; O2SAT 96
[2023-02-15 10:04] LABS: Basophils # 0.2 10^3/uL (0.0-0.1); Basophils % 1.4 %; Eosinophils # 0.1 10^3/uL (0.0-0.8); Eosinophils % 0.5 %; Hematocrit 33.2 % (37.0-47.0); Hemoglobin 10.5 g/dL (11.5-15.3); Lymphocytes # 1.7 10^3/uL (0.8-4.8); Lymphocytes % 11.3 %; Mean Corpuscular HGB Conc 31.6 g/dL (30.0-36.0); Mean Corpuscular Hemoglobin 27.8 pg (28.0-34.0); Mean Corpuscular Volume 87.8 fl (81-99); Mean Platelet Volume 10.2 fL (7.4-10.4); Monocytes # 1.5 10^3/uL (0.2-0.9); Monocytes % 10.3 %; Neutrophils # 7.49 10^3/uL (1.8-7.7); Neutrophils % 51.1 %; Nucleated Red Blood Cells % 0.1 %; Platelet Count 321 10^3/cmm (130-400); Red Blood Count 3.78 10^6/uL (4.1-5.3); Red Cell Distribution Width 14.2 % (12.1-15.1); White Blood Count 14.7 10^3/uL (4.0-10.0)
[2023-02-15 10:14] LABS: Alanine Aminotransferase 13 U/L (0-33); Albumin Level 3.4 g/dL (3.5-5.2); Alkaline Phosphatase 97 U/L (35-105); Anion Gap 11.9 (5-19); Aspartate Amino Transferase 14 U/L (0-32); Blood Urea Nitrogen 10 mg/dL (6-20); Calcium 8.6 mg/dL (8.5-10.5); Carbon Dioxide 26 mmol/L (22-29); Chloride 107 mmol/L (98-107); Globulin 3.2 g/dL (1.3-4.6); Glucose 100 mg/dL (65-115); Osmolality Calculated 291 mOsm/kg (285-295); Potassium 3.9 mmol/L (3.5-5.1); Sodium 141 mmol/L (136-145); Total Bilirubin 0.2 mg/dL (0.15-1.2); Total Protein 6.6 g/dL (6.6-8.7)
[2023-02-15 10:27] LABS: Slide Review Slide Review Perform
[2023-02-15] MEDS: fosaprepitant 150 MG in sodium chloride 0.9% 150 ML 300 MG IV (12:57)
[2023-02-15] MEDS: sodium chloride 0.9% 250 ML 75 ML IV (12:57)
[2023-02-15] MEDS: diphenhydrAMINE 50 mg/mL SDV 1mL 25 MG IVP (12:57)
[2023-02-15] MEDS: palonosetron 0.25 mg/5 mL SDV IVP (12:57)
[2023-02-15] MEDS: OLANZapine 5 mg TABLET PO (12:58)
[2023-02-15] MEDS: famotidine 20 mg/2 mL INJ IVP (12:58)
[2023-02-15] MEDS: DOXOrubicin 2 mg/ml MDV 132 MG IVP (14:27)
[2023-02-15 16:05] VITALS: BP 107/66; PULSE 89; RESP 18; TEMP 36.4; O2SAT 93
[2023-02-16] MEDS: pegfilgrastim-bmez 6 mg/0.6 mL SYR SUBCUT (10:21)
== END 2023-02-18 23:59 | disposition home or self-care (01) ==
PROVIDERS: Nurse Practitioner Family; PCP Nurse Practitioner; Visit Provider Internal Medicine Hematology & Oncology
DX: C50.812 Malignant neoplasm of overlapping sites of left female breast (principal); Z17.1 Estrogen receptor negative status [ER-]; D70.1 Agranulocytosis secondary to cancer chemotherapy; T45.1X5A Adverse effect of antineoplastic and immunosuppressive drugs, initial encounter; Z79.899 Other long term (current) drug therapy
CPT/HCPCS: 36591; 36593; 36598; 76000; 80053; 83036; 85007; 85025; 96361; 96367; 96372; 96375; 96411; 96413; 96415; J1100; J1200; J1453; J2469; J2997; J3490; J7040; J7050; J9000; J9070; Q5120; Q9967

== ENCOUNTER 2023-03-15 09:30 | Oncology outpatient (recurring) (ONCR) | payer BC, SELFPAY ==
[2023-03-01 08:10] VITALS: BP 103/70; PULSE 91; RESP 18; TEMP 36.1; O2SAT 95
[2023-03-01 08:30] LABS: Hematocrit 33.1 % (37.0-47.0); Hemoglobin 10.3 g/dL (11.5-15.3); Mean Corpuscular HGB Conc 31.1 g/dL (30.0-36.0); Mean Corpuscular Hemoglobin 28.3 pg (28.0-34.0); Mean Corpuscular Volume 90.9 fl (81-99); Mean Platelet Volume 10.1 fL (7.4-10.4); Platelet Count 292 10^3/cmm (130-400); Red Blood Count 3.64 10^6/uL (4.1-5.3); White Blood Count 14.3 10^3/uL (4.0-10.0)
[2023-03-01 08:50] LABS: Alanine Aminotransferase 14 U/L (0-33); Albumin Level 3.4 g/dL (3.5-5.2); Alkaline Phosphatase 99 U/L (35-105); Aspartate Amino Transferase 15 U/L (0-32); Blood Urea Nitrogen 17 mg/dL (6-20); Calcium 9.1 mg/dL (8.5-10.5); Carbon Dioxide 28 mmol/L (22-29); Chloride 104 mmol/L (98-107); Glomerular Filtration Rate 86.2 mL/min (90-130); Glucose 118 mg/dL (65-115); Osmolality Calculated 291 mOsm/kg (285-295); Sodium 139 mmol/L (136-145); Total Bilirubin 0.2 mg/dL (0.15-1.2); Total Protein 6.4 g/dL (6.6-8.7)
[2023-03-01 09:31] LABS: Band Neutrophils Absolute 1.1 10^3/cmm (0.0-1.2); Lymphocytes 12 %; Monocytes Absolute 0.1 10^3/cmm (0.1-0.6); Slide Review Slide Review Perform; Total Cells Counted 100 (0-100)
[2023-03-01 09:32] LABS: Absolute Eosinophils 0.4 10^3/cmm (0.0-0.7); Absolute Neutrophil 10.4 10^3/cmm (1.4-6.5); Absolute Segmented Neutrophil 9.3 10/cmm (1.6-7.1); Eosinophils 3 %; Lymphocytes Absolute 1.7 10^3/cmm (1.2-3.4); Platelet Estimate Normal (Normal); Segmented Neutrophils 65 %
[2023-03-01] MEDS: palonosetron 0.25 mg/5 mL SDV IVP (11:09)
[2023-03-01] MEDS: OLANZapine 5 mg TABLET PO (11:10)
[2023-03-01] MEDS: sodium chloride 0.9% 1,000 ML 999 ML IV (11:10)
[2023-03-01] MEDS: diphenhydrAMINE 50 mg/mL SDV 1mL 25 MG IVP (11:38)
[2023-03-01] MEDS: famotidine 20 mg/2 mL INJ IVP (11:42)
[2023-03-01] MEDS: fosaprepitant 150 MG in sodium chloride 0.9% 150 ML 300 MG IV (11:46)
[2023-03-01] MEDS: DOXOrubicin 2 mg/ml MDV 132 MG IVP (12:28)
[2023-03-01 15:40] VITALS: BP 134/78; PULSE 91; RESP 18; TEMP 36.6; O2SAT 98
[2023-03-02 09:50] VITALS: BP 129/73; PULSE 76; O2SAT 98
[2023-03-02] MEDS: pegfilgrastim-bmez 6 mg/0.6 mL SYR SUBCUT (09:53)
[2023-03-15] VITALS (7 sets, daily range): BP systolic 105–126; BP diastolic 67–74; PULSE 81–93; RESP 16–18; TEMP 35.9–36.8; O2SAT 95–99; BMI 47.1
[2023-03-15 09:44] LABS: Hemoglobin 8.9 g/dL (11.5-15.3); Mean Corpuscular HGB Conc 31.8 g/dL (30.0-36.0); Mean Corpuscular Hemoglobin 29.4 pg (28.0-34.0); Mean Corpuscular Volume 92.4 fl (81-99); Mean Platelet Volume 9.7 fL (7.4-10.4); Platelet Count 286 10^3/cmm (130-400); Red Blood Count 3.03 10^6/uL (4.1-5.3); Red Cell Distribution Width 18.7 % (12.1-15.1); White Blood Count 11.6 10^3/uL (4.0-10.0)
[2023-03-15 10:14] LABS: Alanine Aminotransferase 10 U/L (0-33); Albumin Level 3.2 g/dL (3.5-5.2); Alkaline Phosphatase 90 U/L (35-105); Aspartate Amino Transferase 13 U/L (0-32); Blood Urea Nitrogen 10 mg/dL (6-20); Calcium 8.8 mg/dL (8.5-10.5); Carbon Dioxide 24 mmol/L (22-29); Chloride 103 mmol/L (98-107); Creatinine Clr Calc Pharmacy 130.5508; Globulin 3.1 g/dL (1.3-4.6); Glucose 123 mg/dL (65-115); Osmolality Calculated 282 mOsm/kg (285-295); Sodium 136 mmol/L (136-145); Total Bilirubin 0.2 mg/dL (0.15-1.2); Total Protein 6.3 g/dL (6.6-8.7)
[2023-03-15 10:58] LABS: Slide Review Slide Review Perform
[2023-03-15 10:59] LABS: Absolute Eosinophils 0.1 10^3/cmm (0.0-0.7); Absolute Neutrophil 8.9 10^3/cmm (1.4-6.5); Absolute Segmented Neutrophil 8.4 10/cmm (1.6-7.1); Band Neutrophils Absolute 0.6 10^3/cmm (0.0-1.2); Eosinophils 1 %; Lymphocytes 4 %; Lymphocytes Absolute 1.2 10^3/cmm (1.2-3.4); Monocytes Absolute 0.9 10^3/cmm (0.1-0.6); Platelet Estimate Normal (Normal); Segmented Neutrophils 72 %; Total Cells Counted 100 (0-100)
[2023-03-15 11:01] LABS: Macrocytosis 1+; Microcytosis 1+; Polychromasia 1+
[2023-03-15 12:02] LABS: Ferritin 571 ng/mL (15-150); Iron 36 ug/dL (37-145); Percent Saturation 16.8 % (20-50); Total Iron Binding Capacity 214 mcg/dl; Unsaturated Iron Binding 178 ug/dL (112-347)
[2023-03-15] MEDS: sodium chloride 0.9% 250 ML 75 ML IV (12:14)
[2023-03-15] MEDS: diphenhydrAMINE 50 mg/mL SDV 1mL 25 MG IVP (12:17)
[2023-03-15] MEDS: famotidine 20 mg/2 mL INJ IVP (12:17)
[2023-03-15] MEDS: acetaminophen 325 mg Tablet 650 MG PO (12:18)
[2023-03-15] MEDS: palonosetron 0.25 mg/5 mL SDV IVP (12:18)
[2023-03-15 12:40] LABS: Vitamin B12 > 2000 pg/mL (232-1245)
[2023-03-15 15:05] LABS: Add Urine Microscopic? NO; Charge for UA Resulting for Rev
[2023-03-15 15:44] LABS: Urine Appearance Clear (CLEAR); Urine Color Yellow (Yellow); pH Urine 7 (5-7)
[2023-03-15 15:45] LABS: Bilirubin Urine Neg (Negative); Blood Urine Neg (Negative); Glucose Urine UA Norm (Normal); Ketones Urine Negative (Negative); Leukocyte Esterase Urine Negative (Negative); Nitrate Urine Negative (Negative); Protein Urine Neg (Negative); Urobilinogen Urine Norm (Negative)
== END 2023-03-21 23:59 | disposition home or self-care (01) ==
PROVIDERS: Nurse Practitioner Family; PCP Nurse Practitioner; Visit Provider Internal Medicine Hematology & Oncology
DX: Z51.11 Encounter for antineoplastic chemotherapy (principal); C50.812 Malignant neoplasm of overlapping sites of left female breast; D64.9 Anemia, unspecified; R35.0 Frequency of micturition
CPT/HCPCS: 36591; 76642; 77061; 80053; 81003; 82607; 82728; 83540; 83550; 85007; 85025; 96367; 96372; 96375; 96411; 96413; G0279; J1100; J1200; J1453; J1642; J2469; J3490; J7030; J7040; J7050; J9000; J9070; J9267; Q5120

== ENCOUNTER 2023-03-15 14:40 | Outpatient (CLI) | payer BC, SELFPAY ==
--- NOTE | 2023-03-15 14:57 | XR_ITS ---
WS: [id number] Thoracic spine, 3 views, 03/15/2023 Clinical Data: M54.9 - Dorsalgia, unspecified Comparison: None. Findings: No compression fractures are seen. The disc heights are normal. There is degenerative change of the l ower thoracic vertebral bodies with a dextroscoliosis. There is an infusion catheter entering the right subclavian vein and ending at the cavoatrial junctio n. There are cholecystectomy clips in the right upper quadrant. 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
--- NOTE | 2023-03-15 14:57 | XR_ITS ---
WS: [id number] Lumbar spine, 3 views, 03/15/2023 Clinical Data: M54.9 - Dorsalgia, unspecified Comparison: Lumbar spine, 05/13/2013 Findings: No compression fractures or subluxation is seen. There is degenerative disc narrowing at L5-S1. There are osteophytes on the right at L1-L2. The transverse processes and SI joints are normal. There are cholecystectomy clips in the right upper quadrant. XR/XR lumbar spine 2-3V* [id number] Impression: 1. Degenerative disc narrowing at L5-S1. 2. Degenerative arthritis at L1-L2.
== END 2023-03-15 14:41 | disposition home or self-care (01) ==
PROVIDERS: PCP Nurse Practitioner; Referring Provider Internal Medicine Hematology & Oncology; Visit Provider Nurse Practitioner
DX: M47.814 Spondylosis without myelopathy or radiculopathy, thoracic region (principal); M48.07 Spinal stenosis, lumbosacral region; M47.816 Spondylosis without myelopathy or radiculopathy, lumbar region; M54.9 Dorsalgia, unspecified; C50.912 Malignant neoplasm of unspecified site of left female breast
CPT/HCPCS: 72072; 72100

== ENCOUNTER 2023-04-19 09:25 | Oncology outpatient (recurring) (ONCR) | payer BC, SELFPAY ==
[2023-03-22 09:05] VITALS: BP 120/78; PULSE 105; RESP 16; TEMP 35.8; O2SAT 97
[2023-03-22 09:14] LABS: Basophils # 0.1 10^3/uL (0.0-0.1); Eosinophils # 0.1 10^3/uL (0.0-0.8); Hematocrit 26.4 % (37.0-47.0); Hemoglobin 8.4 g/dL (11.5-15.3); Lymphocytes # 0.9 10^3/uL (0.8-4.8); Mean Corpuscular HGB Conc 31.8 g/dL (30.0-36.0); Mean Corpuscular Hemoglobin 29.3 pg (28.0-34.0); Mean Platelet Volume 9.5 fL (7.4-10.4); Monocytes # 0.9 10^3/uL (0.2-0.9); Neutrophils % 66.9 %; Nucleated Red Blood Cells % 0 %; Platelet Count 479 10^3/cmm (130-400); Red Blood Count 2.87 10^6/uL (4.1-5.3); Red Cell Distribution Width 19.2 % (12.1-15.1); White Blood Count 6.1 10^3/uL (4.0-10.0)
[2023-03-22 09:29] LABS: Alanine Aminotransferase 15 U/L (0-33); Albumin Level 3.4 g/dL (3.5-5.2); Alkaline Phosphatase 74 U/L (35-105); Anion Gap 14.3 (5-19); Aspartate Amino Transferase 16 U/L (0-32); Blood Urea Nitrogen 19 mg/dL (6-20); Carbon Dioxide 25 mmol/L (22-29); Chloride 105 mmol/L (98-107); Globulin 3.1 g/dL (1.3-4.6); Glomerular Filtration Rate 86.2 mL/min (90-130); Glucose 111 mg/dL (65-115); Osmolality Calculated 293 mOsm/kg (285-295); Potassium 4.3 mmol/L (3.5-5.1); Sodium 140 mmol/L (136-145); Total Bilirubin 0.2 mg/dL (0.15-1.2); Total Protein 6.5 g/dL (6.6-8.7)
[2023-03-22] MEDS: sodium chloride 0.9% 250 ML 100 ML IV (12:22)
[2023-03-22] MEDS: acetaminophen 325 mg Tablet 650 MG PO (12:25)
[2023-03-22] MEDS: famotidine 20 mg/2 mL INJ IVP (12:26)
[2023-03-22] MEDS: palonosetron 0.25 mg/5 mL SDV IVP (12:26)
[2023-03-22] MEDS: diphenhydrAMINE 50 mg/mL SDV 1mL 25 MG IVP (12:26)
[2023-03-22 16:52] VITALS: BP 119/78; PULSE 102; TEMP 36.1; O2SAT 96
[2023-03-29 14:19] VITALS: BP 127/87; PULSE 102; RESP 16; TEMP 36.2; O2SAT 98
[2023-03-29 14:26] LABS: Basophils # 0.1 10^3/uL (0.0-0.1); Basophils % 1.5 %; Eosinophils # 0.1 10^3/uL (0.0-0.8); Hematocrit 28.1 % (37.0-47.0); Hemoglobin 8.8 g/dL (11.5-15.3); Lymphocytes # 0.9 10^3/uL (0.8-4.8); Lymphocytes % 19.6 %; Mean Corpuscular HGB Conc 31.3 g/dL (30.0-36.0); Mean Corpuscular Hemoglobin 29.7 pg (28.0-34.0); Mean Corpuscular Volume 94.9 fl (81-99); Mean Platelet Volume 9.6 fL (7.4-10.4); Monocytes # 0.7 10^3/uL (0.2-0.9); Monocytes % 14.3 %; Neutrophils # 2.85 10^3/uL (1.8-7.7); Neutrophils % 60.5 %; Nucleated Red Blood Cells % 0 %; Platelet Count 328 10^3/cmm (130-400); Red Blood Count 2.96 10^6/uL (4.1-5.3); Red Cell Distribution Width 20.7 % (12.1-15.1); White Blood Count 4.7 10^3/uL (4.0-10.0)
[2023-03-29 14:47] LABS: Alanine Aminotransferase 17 U/L (0-33); Albumin Level 3.4 g/dL (3.5-5.2); Alkaline Phosphatase 81 U/L (35-105); Anion Gap 12.3 (5-19); Aspartate Amino Transferase 17 U/L (0-32); Blood Urea Nitrogen 14 mg/dL (6-20); Calcium 8.9 mg/dL (8.5-10.5); Carbon Dioxide 23 mmol/L (22-29); Chloride 105 mmol/L (98-107); Globulin 2.9 g/dL (1.3-4.6); Glucose 125 mg/dL (65-115); Osmolality Calculated 286 mOsm/kg (285-295); Potassium 3.3 mmol/L (3.5-5.1); Sodium 137 mmol/L (136-145); Total Bilirubin 0.2 mg/dL (0.15-1.2); Total Protein 6.3 g/dL (6.6-8.7)
[2023-03-29] MEDS: sodium chloride 0.9% 250 ML 75 ML IV (15:32)
[2023-03-29] MEDS: acetaminophen 325 mg Tablet 650 MG PO (15:33)
[2023-03-29] MEDS: diphenhydrAMINE 50 mg/mL SDV 1mL 25 MG IVP (15:40)
[2023-03-29] MEDS: famotidine 20 mg/2 mL INJ IVP (15:48)
[2023-03-29] MEDS: palonosetron 0.25 mg/5 mL SDV IVP (15:50)
[2023-03-29 17:25] VITALS: BP 135/76; PULSE 94; TEMP 36.4; O2SAT 95
[2023-04-05 09:49] VITALS: BP 108/69; PULSE 118; RESP 18; TEMP 36; O2SAT 95
[2023-04-05 10:02] LABS: Basophils # 0.1 10^3/uL (0.0-0.1); Basophils % 1.7 %; Eosinophils # 0.2 10^3/uL (0.0-0.8); Eosinophils % 5.8 %; Hematocrit 28.4 % (37.0-47.0); Hemoglobin 8.9 g/dL (11.5-15.3); Lymphocytes # 0.6 10^3/uL (0.8-4.8); Lymphocytes % 17.5 %; Mean Corpuscular HGB Conc 31.3 g/dL (30.0-36.0); Mean Corpuscular Volume 95.6 fl (81-99); Mean Platelet Volume 10.1 fL (7.4-10.4); Monocytes # 0.4 10^3/uL (0.2-0.9); Monocytes % 10.6 %; Neutrophils # 2.29 10^3/uL (1.8-7.7); Neutrophils % 63.6 %; Nucleated Red Blood Cells % 0 %; Platelet Count 318 10^3/cmm (130-400); Red Blood Count 2.97 10^6/uL (4.1-5.3); Red Cell Distribution Width 20.3 % (12.1-15.1); White Blood Count 3.6 10^3/uL (4.0-10.0)
[2023-04-05 10:33] LABS: Alanine Aminotransferase 19 U/L (0-33); Albumin Level 3.5 g/dL (3.5-5.2); Alkaline Phosphatase 84 U/L (35-105); Anion Gap 12.9 (5-19); Aspartate Amino Transferase 17 U/L (0-32); Blood Urea Nitrogen 15 mg/dL (6-20); Calcium 9.1 mg/dL (8.5-10.5); Carbon Dioxide 23 mmol/L (22-29); Chloride 104 mmol/L (98-107); Globulin 2.9 g/dL (1.3-4.6); Glomerular Filtration Rate 127.2 mL/min (90-130); Glucose 89 mg/dL (65-115); Osmolality Calculated 282 mOsm/kg (285-295); Potassium 3.9 mmol/L (3.5-5.1); Sodium 136 mmol/L (136-145); Total Bilirubin 0.2 mg/dL (0.15-1.2); Total Protein 6.4 g/dL (6.6-8.7)
[2023-04-05] MEDS: acetaminophen 325 mg Tablet 650 MG PO (12:02)
[2023-04-05] MEDS: diphenhydrAMINE 50 mg/mL SDV 1mL 25 MG IVP (12:02)
[2023-04-05] MEDS: sodium chloride 0.9% 250 ML 75 ML IV (12:03)
[2023-04-05] MEDS: famotidine 20 mg/2 mL INJ IVP (12:07)
[2023-04-05] MEDS: palonosetron 0.25 mg/5 mL SDV IVP (12:09)
[2023-04-05 14:25] VITALS: BP 107/64; PULSE 95; RESP 18; TEMP 36.2; O2SAT 100
[2023-04-12 10:30] VITALS: BP 125/79; PULSE 103; RESP 18; TEMP 35.6; O2SAT 93
[2023-04-12 10:38] VITALS: BP 189/83; PULSE 55; RESP 18; TEMP 36.9; O2SAT 97
[2023-04-12 10:44] LABS: Basophils # 0.1 10^3/uL (0.0-0.1); Basophils % 1.7 %; Eosinophils # 0.1 10^3/uL (0.0-0.8); Eosinophils % 4.6 %; Hematocrit 27.8 % (37.0-47.0); Hemoglobin 8.8 g/dL (11.5-15.3); Lymphocytes # 0.8 10^3/uL (0.8-4.8); Lymphocytes % 25.7 %; Mean Corpuscular HGB Conc 31.7 g/dL (30.0-36.0); Mean Corpuscular Hemoglobin 30.4 pg (28.0-34.0); Mean Corpuscular Volume 96.2 fl (81-99); Mean Platelet Volume 9.7 fL (7.4-10.4); Monocytes # 0.4 10^3/uL (0.2-0.9); Monocytes % 13.2 %; Neutrophils # 1.63 10^3/uL (1.8-7.7); Neutrophils % 53.8 %; Nucleated Red Blood Cells % 0 %; Platelet Count 330 10^3/cmm (130-400); Red Blood Count 2.89 10^6/uL (4.1-5.3); Red Cell Distribution Width 20.5 % (12.1-15.1)
[2023-04-12 11:02] LABS: Alanine Aminotransferase 23 U/L (0-33); Albumin Level 3.5 g/dL (3.5-5.2); Alkaline Phosphatase 81 U/L (35-105); Anion Gap 12.6 (5-19); Aspartate Amino Transferase 21 U/L (0-32); Blood Urea Nitrogen 14 mg/dL (6-20); Calcium 9.2 mg/dL (8.5-10.5); Carbon Dioxide 23 mmol/L (22-29); Chloride 105 mmol/L (98-107); Globulin 3.1 g/dL (1.3-4.6); Glomerular Filtration Rate 86.2 mL/min (90-130); Glucose 87 mg/dL (65-115); Osmolality Calculated 284 mOsm/kg (285-295); Potassium 3.6 mmol/L (3.5-5.1); Sodium 137 mmol/L (136-145); Total Bilirubin 0.3 mg/dL (0.15-1.2); Total Protein 6.6 g/dL (6.6-8.7)
[2023-04-12] MEDS: acetaminophen 325 mg Tablet 650 MG PO (12:28)
[2023-04-12] MEDS: sodium chloride 0.9% 250 ML 75 ML IV (12:28)
[2023-04-12] MEDS: famotidine 20 mg/2 mL INJ IVP (12:29)
[2023-04-12] MEDS: diphenhydrAMINE 50 mg/mL SDV 1mL 25 MG IVP (12:31)
[2023-04-12] MEDS: palonosetron 0.25 mg/5 mL SDV IVP (12:33)
[2023-04-12 14:30] VITALS: BP 133/73; PULSE 89; RESP 16; TEMP 36.3; O2SAT 98
[2023-04-19 09:25] VITALS: BP 127/80; PULSE 108; RESP 18; TEMP 36.2; O2SAT 97
[2023-04-19 09:35] LABS: Basophils % 1.3 %; Eosinophils # 0.1 10^3/uL (0.0-0.8); Eosinophils % 4.3 %; Hematocrit 27.3 % (37.0-47.0); Hemoglobin 8.8 g/dL (11.5-15.3); Lymphocytes # 0.7 10^3/uL (0.8-4.8); Lymphocytes % 21.4 %; Mean Corpuscular HGB Conc 32.2 g/dL (30.0-36.0); Mean Corpuscular Hemoglobin 31.1 pg (28.0-34.0); Mean Corpuscular Volume 96.5 fl (81-99); Mean Platelet Volume 9.4 fL (7.4-10.4); Monocytes # 0.5 10^3/uL (0.2-0.9); Monocytes % 15.5 %; Neutrophils % 55.9 %; Nucleated Red Blood Cells % 0 %; Platelet Count 316 10^3/cmm (130-400); Red Blood Count 2.83 10^6/uL (4.1-5.3); Red Cell Distribution Width 19.4 % (12.1-15.1)
[2023-04-19 09:53] LABS: Alanine Aminotransferase 21 U/L (0-33); Albumin Level 3.3 g/dL (3.5-5.2); Alkaline Phosphatase 83 U/L (35-105); Anion Gap 12.7 (5-19); Aspartate Amino Transferase 19 U/L (0-32); Blood Urea Nitrogen 14 mg/dL (6-20); Calcium 9.1 mg/dL (8.5-10.5); Carbon Dioxide 23 mmol/L (22-29); Chloride 106 mmol/L (98-107); Globulin 2.9 g/dL (1.3-4.6); Glucose 98 mg/dL (65-115); Osmolality Calculated 286 mOsm/kg (285-295); Potassium 3.7 mmol/L (3.5-5.1); Sodium 138 mmol/L (136-145); Total Bilirubin 0.3 mg/dL (0.15-1.2); Total Protein 6.2 g/dL (6.6-8.7)
[2023-04-19] MEDS: acetaminophen 325 mg Tablet 650 MG PO (11:02)
[2023-04-19] MEDS: sodium chloride 0.9% 250 ML 100 ML IV (11:02)
[2023-04-19] MEDS: palonosetron 0.25 mg/5 mL SDV IVP (11:03)
[2023-04-19] MEDS: famotidine 20 mg/2 mL INJ IVP (11:05)
[2023-04-19] MEDS: diphenhydrAMINE 50 mg/mL SDV 1mL 25 MG IVP (11:08)
[2023-04-19 13:00] VITALS: BP 120/83; PULSE 103; RESP 16; TEMP 36.5; O2SAT 97
== END 2023-04-20 23:59 | disposition home or self-care (01) ==
PROVIDERS: Nurse Practitioner Family; PCP Nurse Practitioner; Visit Provider Internal Medicine Hematology & Oncology
DX: C50.912 Malignant neoplasm of unspecified site of left female breast (principal); Z51.11 Encounter for antineoplastic chemotherapy
CPT/HCPCS: 96367 ×4; 96375 ×5; 96413 ×5; 96361 ×2; 80053; 85025; J1100; J1200; J1642; J2469; J3490; J7050; J9267

== ENCOUNTER 2023-05-17 08:30 | Oncology outpatient (recurring) (ONCR) | payer BC, SELFPAY ==
[2023-04-26 08:21] VITALS: BP 127/85; PULSE 110; RESP 18; TEMP 36.4; O2SAT 94
[2023-04-26 08:32] LABS: Basophils # 0.1 10^3/uL (0.0-0.1); Basophils % 1.7 %; Eosinophils # 0.1 10^3/uL (0.0-0.8); Hematocrit 28.5 % (37.0-47.0); Hemoglobin 9.1 g/dL (11.5-15.3); Lymphocytes # 0.7 10^3/uL (0.8-4.8); Lymphocytes % 22.6 %; Mean Corpuscular HGB Conc 31.9 g/dL (30.0-36.0); Mean Corpuscular Hemoglobin 31.4 pg (28.0-34.0); Mean Corpuscular Volume 98.3 fl (81-99); Mean Platelet Volume 9.7 fL (7.4-10.4); Monocytes # 0.4 10^3/uL (0.2-0.9); Monocytes % 14.6 %; Neutrophils # 1.68 10^3/uL (1.8-7.7); Neutrophils % 55.8 %; Nucleated Red Blood Cells % 0 %; Platelet Count 312 10^3/cmm (130-400); Red Cell Distribution Width 18.6 % (12.1-15.1)
[2023-04-26 08:51] LABS: Alanine Aminotransferase 23 U/L (0-33); Albumin Level 3.4 g/dL (3.5-5.2); Alkaline Phosphatase 74 U/L (35-105); Anion Gap 14.5 (5-19); Aspartate Amino Transferase 21 U/L (0-32); Blood Urea Nitrogen 12 mg/dL (6-20); Carbon Dioxide 22 mmol/L (22-29); Chloride 106 mmol/L (98-107); Creatinine Clr Calc Pharmacy 126.9025; Globulin 3.1 g/dL (1.3-4.6); Glucose 107 mg/dL (65-115); Osmolality Calculated 288 mOsm/kg (285-295); Potassium 3.5 mmol/L (3.5-5.1); Sodium 139 mmol/L (136-145); Total Bilirubin 0.3 mg/dL (0.15-1.2); Total Protein 6.5 g/dL (6.6-8.7)
[2023-04-26 10:23] VITALS: BP 114/72; PULSE 74; RESP 18; TEMP 36.6; O2SAT 98
[2023-05-03 08:45] VITALS: BP 142/85; PULSE 106; RESP 18; TEMP 36; O2SAT 96
[2023-05-03 09:19] LABS: Erythrocyte Sedimentation Rate 35 mm/hr (0-15)
[2023-05-03 09:48] LABS: Basophils # 0.1 10^3/uL (0.0-0.1); Basophils % 1.2 %; Eosinophils # 0.1 10^3/uL (0.0-0.8); Eosinophils % 3.1 %; Hematocrit 30.7 % (37.0-47.0); Hemoglobin 9.6 g/dL (11.5-15.3); Lymphocytes # 0.9 10^3/uL (0.8-4.8); Lymphocytes % 20.5 %; Mean Corpuscular HGB Conc 31.3 g/dL (30.0-36.0); Mean Corpuscular Hemoglobin 30.8 pg (28.0-34.0); Mean Corpuscular Volume 98.4 fl (81-99); Mean Platelet Volume 10.9 fL (7.4-10.4); Monocytes # 0.8 10^3/uL (0.2-0.9); Neutrophils # 2.29 10^3/uL (1.8-7.7); Neutrophils % 54.5 %; Nucleated Red Blood Cells % 0 %; Platelet Count 338 10^3/cmm (130-400); Red Blood Count 3.12 10^6/uL (4.1-5.3); Red Cell Distribution Width 17.2 % (12.1-15.1); White Blood Count 4.2 10^3/uL (4.0-10.0)
[2023-05-03 09:59] LABS: Creatine Phosphokinase 20 U/L (26-192)
[2023-05-03 10:00] LABS: Alanine Aminotransferase 20 U/L (0-33); Albumin Level 3.3 g/dL (3.5-5.2); Alkaline Phosphatase 80 U/L (35-105); Anion Gap 13.7 (5-19); Aspartate Amino Transferase 23 U/L (0-32); Blood Urea Nitrogen 10 mg/dL (6-20); Calcium 8.7 mg/dL (8.5-10.5); Carbon Dioxide 21 mmol/L (22-29); Chloride 105 mmol/L (98-107); Globulin 2.9 g/dL (1.3-4.6); Glomerular Filtration Rate 86.2 mL/min (90-130); Glucose 86 mg/dL (65-115); Osmolality Calculated 280 mOsm/kg (285-295); Potassium 3.7 mmol/L (3.5-5.1); Sodium 136 mmol/L (136-145); Total Bilirubin 0.3 mg/dL (0.15-1.2); Total Protein 6.2 g/dL (6.6-8.7)
[2023-05-03] MEDS: sodium chloride 0.9% 250 ML 75 ML IV (11:11)
[2023-05-03] MEDS: acetaminophen 325 mg Tablet 650 MG PO (11:11)
[2023-05-03] MEDS: diphenhydrAMINE 50 mg/mL SDV 1mL 25 MG IVP (11:13)
[2023-05-03] MEDS: famotidine 20 mg/2 mL INJ IVP (11:18)
[2023-05-03] MEDS: palonosetron 0.25 mg/5 mL SDV IVP (11:21)
[2023-05-03 13:45] VITALS: BP 119/77; PULSE 102; RESP 18; TEMP 36.2; O2SAT 95
[2023-05-17 08:17] VITALS: BMI 47.0
[2023-05-17 08:18] VITALS: BP 126/78; PULSE 98; RESP 18; TEMP 36.5; O2SAT 96
[2023-05-17 08:31] LABS: Basophils # 0.1 10^3/uL (0.0-0.1); Basophils % 1.6 %; Eosinophils # 0.2 10^3/uL (0.0-0.8); Eosinophils % 5.2 %; Hematocrit 31.7 % (37.0-47.0); Hemoglobin 9.6 g/dL (11.5-15.3); Lymphocytes # 1.2 10^3/uL (0.8-4.8); Lymphocytes % 26.9 %; Mean Corpuscular HGB Conc 30.3 g/dL (30.0-36.0); Mean Corpuscular Hemoglobin 30.6 pg (28.0-34.0); Mean Platelet Volume 10.7 fL (7.4-10.4); Monocytes # 0.7 10^3/uL (0.2-0.9); Monocytes % 15.9 %; Neutrophils # 2.17 10^3/uL (1.8-7.7); Neutrophils % 49.5 %; Nucleated Red Blood Cells % 0 %; Platelet Count 317 10^3/cmm (130-400); Red Blood Count 3.14 10^6/uL (4.1-5.3); Red Cell Distribution Width 15.6 % (12.1-15.1); White Blood Count 4.4 10^3/uL (4.0-10.0)
[2023-05-17 09:01] LABS: Alanine Aminotransferase 19 U/L (0-33); Albumin Level 3.2 g/dL (3.5-5.2); Alkaline Phosphatase 78 U/L (35-105); Anion Gap 13.9 (5-19); Aspartate Amino Transferase 19 U/L (0-32); Blood Urea Nitrogen 10 mg/dL (6-20); Carbon Dioxide 23 mmol/L (22-29); Chloride 107 mmol/L (98-107); Glucose 118 mg/dL (65-115); Osmolality Calculated 290 mOsm/kg (285-295); Potassium 3.9 mmol/L (3.5-5.1); Sodium 140 mmol/L (136-145); Total Bilirubin 0.2 mg/dL (0.15-1.2); Total Protein 6.2 g/dL (6.6-8.7)
[2023-05-17] MEDS: sodium chloride 0.9% 250 ML 100 ML IV (10:53)
[2023-05-17] MEDS: acetaminophen 325 mg Tablet 650 MG PO (10:53)
[2023-05-17] MEDS: diphenhydrAMINE 50 mg/mL SDV 1mL 25 MG IVP (10:56)
[2023-05-17] MEDS: famotidine 20 mg/2 mL INJ IVP (10:59)
[2023-05-17] MEDS: palonosetron 0.25 mg/5 mL SDV IVP (11:01)
[2023-05-17 13:56] VITALS: BP 128/77; PULSE 88; RESP 16; TEMP 35.8; O2SAT 96
== END 2023-05-21 23:59 | disposition home or self-care (01) ==
PROVIDERS: Nurse Practitioner Family; Specialist; PCP Nurse Practitioner; Visit Provider Internal Medicine Hematology & Oncology
DX: Z51.11 Encounter for antineoplastic chemotherapy (principal); C50.912 Malignant neoplasm of unspecified site of left female breast
CPT/HCPCS: 80053; 82550; 85025; 85651; 96367; 96375; 96413; J1100; J1200; J1642; J2469; J3490; J7050; J9267

== ENCOUNTER 2023-06-21 10:06 | Oncology outpatient (recurring) (ONCR) | payer BC, SELFPAY ==
[2023-05-31 08:26] VITALS: BMI 45.8
[2023-05-31 08:28] VITALS: BP 127/81; PULSE 94; RESP 18; TEMP 36.2; O2SAT 96
[2023-05-31 08:42] LABS: Basophils % 0.8 %; Eosinophils # 0.2 10^3/uL (0.0-0.8); Eosinophils % 3.9 %; Hematocrit 34.4 % (37.0-47.0); Lymphocytes # 1.1 10^3/uL (0.8-4.8); Lymphocytes % 23.1 %; Mean Corpuscular Hemoglobin 30.8 pg (28.0-34.0); Mean Corpuscular Volume 96.4 fl (81-99); Mean Platelet Volume 10.5 fL (7.4-10.4); Monocytes # 0.7 10^3/uL (0.2-0.9); Monocytes % 14.5 %; Neutrophils # 2.81 10^3/uL (1.8-7.7); Neutrophils % 57.3 %; Nucleated Red Blood Cells % 0 %; Platelet Count 326 10^3/cmm (130-400); Red Blood Count 3.57 10^6/uL (4.1-5.3); Red Cell Distribution Width 14.5 % (12.1-15.1); White Blood Count 4.9 10^3/uL (4.0-10.0)
[2023-05-31 09:05] LABS: Alanine Aminotransferase 20 U/L (0-33); Albumin Level 3.5 g/dL (3.5-5.2); Alkaline Phosphatase 89 U/L (35-105); Anion Gap 12.2 (5-19); Aspartate Amino Transferase 23 U/L (0-32); Blood Urea Nitrogen 13 mg/dL (6-20); Calcium 9.2 mg/dL (8.5-10.5); Carbon Dioxide 25 mmol/L (22-29); Chloride 107 mmol/L (98-107); Globulin 3.1 g/dL (1.3-4.6); Glomerular Filtration Rate 86.2 mL/min (90-130); Glucose 114 mg/dL (65-115); Osmolality Calculated 291 mOsm/kg (285-295); Potassium 4.2 mmol/L (3.5-5.1); Sodium 140 mmol/L (136-145); Total Bilirubin 0.2 mg/dL (0.15-1.2); Total Protein 6.6 g/dL (6.6-8.7)
[2023-05-31] MEDS: acetaminophen 325 mg Tablet 650 MG PO (11:37)
[2023-05-31] MEDS: palonosetron 0.25 mg/5 mL SDV IVP (11:37)
[2023-05-31] MEDS: sodium chloride 0.9% 250 ML 100 ML IV (11:37)
[2023-05-31] MEDS: famotidine 20 mg/2 mL INJ IVP (11:40)
[2023-05-31] MEDS: diphenhydrAMINE 50 mg/mL SDV 1mL 25 MG IVP (11:42)
[2023-05-31 13:15] VITALS: BP 113/72; PULSE 92; RESP 16; TEMP 36.1; O2SAT 97
[2023-06-07 08:39] VITALS: BMI 45.8
[2023-06-07 08:40] VITALS: BP 116/80; PULSE 108; RESP 18; TEMP 36.3; O2SAT 97
[2023-06-07 09:13] LABS: Basophils # 0.1 10^3/uL (0.0-0.1); Basophils % 1.4 %; Eosinophils # 0.2 10^3/uL (0.0-0.8); Eosinophils % 3.4 %; Hemoglobin 10.4 g/dL (11.5-15.3); Lymphocytes % 22.1 %; Mean Corpuscular HGB Conc 31.5 g/dL (30.0-36.0); Mean Corpuscular Hemoglobin 29.9 pg (28.0-34.0); Mean Corpuscular Volume 94.8 fl (81-99); Mean Platelet Volume 11.2 fL (7.4-10.4); Monocytes # 0.3 10^3/uL (0.2-0.9); Monocytes % 7.3 %; Neutrophils # 2.86 10^3/uL (1.8-7.7); Neutrophils % 65.1 %; Nucleated Red Blood Cells % 0 %; Platelet Count 314 10^3/cmm (130-400); Red Blood Count 3.48 10^6/uL (4.1-5.3); Red Cell Distribution Width 14.2 % (12.1-15.1); White Blood Count 4.4 10^3/uL (4.0-10.0)
[2023-06-07 09:36] LABS: Alanine Aminotransferase 26 U/L (0-33); Albumin Level 3.5 g/dL (3.5-5.2); Alkaline Phosphatase 86 U/L (35-105); Anion Gap 12.1 (5-19); Aspartate Amino Transferase 24 U/L (0-32); Blood Urea Nitrogen 20 mg/dL (6-20); Carbon Dioxide 25 mmol/L (22-29); Chloride 107 mmol/L (98-107); Glomerular Filtration Rate 86.2 mL/min (90-130); Glucose 143 mg/dL (65-115); Osmolality Calculated 295 mOsm/kg (285-295); Potassium 4.1 mmol/L (3.5-5.1); Sodium 140 mmol/L (136-145); Total Bilirubin 0.2 mg/dL (0.15-1.2); Total Protein 6.5 g/dL (6.6-8.7)
[2023-06-07] MEDS: acetaminophen 325 mg Tablet 650 MG PO (12:16)
[2023-06-07] MEDS: sodium chloride 0.9% 250 ML 75 ML IV (12:17)
[2023-06-07] MEDS: palonosetron 0.25 mg/5 mL SDV IVP (12:24)
[2023-06-07] MEDS: famotidine 20 mg/2 mL INJ IVP (12:26)
[2023-06-07] MEDS: diphenhydrAMINE 50 mg/mL SDV 1mL 25 MG IVP (12:28)
[2023-06-07 14:16] VITALS: BP 112/71; PULSE 96; TEMP 36.2; O2SAT 99
[2023-06-14 08:22] VITALS: BP 121/76; PULSE 99; RESP 18; TEMP 36.3; O2SAT 98; BMI 46.3
[2023-06-14 08:35] LABS: Eosinophils # 0.1 10^3/uL (0.0-0.8); Eosinophils % 4.2 %; Hematocrit 32.2 % (36-47); Lymphocytes % 33.2 %; Mean Corpuscular Hemoglobin 30.6 pg (27-33); Mean Corpuscular Volume 95.5 fl (85-98); Mean Platelet Volume 10.3 fL (7.4-10.4); Monocytes # 0.3 10^3/uL (0.2-0.9); Monocytes % 8.1 %; Neutrophils # 1.62 10^3/uL (1.8-7.7); Neutrophils % 52.8 %; Nucleated Red Blood Cells % 0 %; Platelet Count 309 10^3/cmm (157-399); Red Blood Count 3.37 10^6/uL (3.85-5.65); Red Cell Distribution Width 14.6 % (12.1-15.1); White Blood Count 3.07 10^3/uL (3.29-11.43)
[2023-06-14 08:51] LABS: Alanine Aminotransferase 21 U/L (0-33); Albumin Level 3.7 g/dL (3.5-5.2); Alkaline Phosphatase 79 U/L (35-105); Aspartate Amino Transferase 19 U/L (0-32); Blood Urea Nitrogen 16 mg/dL (6-20); Calcium 9.2 mg/dL (8.5-10.5); Carbon Dioxide 25 mmol/L (22-29); Chloride 106 mmol/L (98-107); Globulin 2.9 g/dL (1.3-4.6); Glucose 111 mg/dL (65-115); Osmolality Calculated 292 mOsm/kg (285-295); Sodium 140 mmol/L (136-145); Total Bilirubin 0.2 mg/dL (0.15-1.2); Total Protein 6.6 g/dL (6.6-8.7)
[2023-06-14] MEDS: sodium chloride 0.9% 250 ML 100 ML IV (11:27)
[2023-06-14] MEDS: acetaminophen 325 mg Tablet 650 MG PO (11:27)
[2023-06-14] MEDS: palonosetron 0.25 mg/5 mL SDV IVP (11:27)
[2023-06-14] MEDS: diphenhydrAMINE 50 mg/mL SDV 1mL 25 MG IVP (11:30)
[2023-06-14] MEDS: famotidine 20 mg/2 mL INJ IVP (11:33)
[2023-06-14 13:25] VITALS: BP 120/58; PULSE 94; RESP 18; TEMP 36.3; O2SAT 95
[2023-06-21 10:20] VITALS: BP 130/88; PULSE 96; RESP 16; TEMP 35.9; O2SAT 98
[2023-06-21 10:24] LABS: Basophils % 1.2 %; Eosinophils # 0.1 10^3/uL (0.0-0.8); Eosinophils % 2.7 %; Hematocrit 32.1 % (36-47); Lymphocytes # 1.2 10^3/uL (0.8-4.8); Lymphocytes % 35.1 %; Mean Corpuscular HGB Conc 32.1 g/dL (30-55); Mean Corpuscular Hemoglobin 30.4 pg (27-33); Mean Corpuscular Volume 94.7 fl (85-98); Mean Platelet Volume 10.2 fL (7.4-10.4); Monocytes # 0.4 10^3/uL (0.2-0.9); Monocytes % 11.1 %; Neutrophils # 1.63 10^3/uL (1.8-7.7); Nucleated Red Blood Cells % 0 %; Platelet Count 329 10^3/cmm (157-399); Red Blood Count 3.39 10^6/uL (3.85-5.65); Red Cell Distribution Width 15.1 % (12.1-15.1); White Blood Count 3.33 10^3/uL (3.29-11.43)
[2023-06-21 10:58] LABS: Alanine Aminotransferase 23 U/L (0-33); Albumin Level 3.5 g/dL (3.5-5.2); Alkaline Phosphatase 81 U/L (35-105); Anion Gap 13.2 (5-19); Aspartate Amino Transferase 19 U/L (0-32); Blood Urea Nitrogen 14 mg/dL (6-20); Calcium 9.1 mg/dL (8.5-10.5); Carbon Dioxide 23 mmol/L (22-29); Chloride 106 mmol/L (98-107); Globulin 2.9 g/dL (1.3-4.6); Glucose 107 mg/dL (65-115); Osmolality Calculated 287 mOsm/kg (285-295); Potassium 4.2 mmol/L (3.5-5.1); Sodium 138 mmol/L (136-145); Total Bilirubin 0.2 mg/dL (0.15-1.2); Total Protein 6.4 g/dL (6.6-8.7)
[2023-06-21] MEDS: sodium chloride 0.9% 250 ML 100 ML IV (13:06)
[2023-06-21] MEDS: palonosetron 0.25 mg/5 mL SDV IVP (13:08)
[2023-06-21] MEDS: diphenhydrAMINE 50 mg/mL SDV 1mL 25 MG IVP (13:10)
[2023-06-21] MEDS: famotidine 20 mg/2 mL INJ IVP (13:13)
[2023-06-21] MEDS: acetaminophen 325 mg Tablet 650 MG PO (13:17)
[2023-06-21 16:03] VITALS: BP 124/78; PULSE 80; RESP 18; TEMP 36.4; O2SAT 98
== END 2023-06-21 23:59 | disposition home or self-care (01) ==
PROVIDERS: PCP Nurse Practitioner; Visit Provider Internal Medicine Medical Oncology
DX: Z51.11 Encounter for antineoplastic chemotherapy (principal); C50.912 Malignant neoplasm of unspecified site of left female breast; Z53.9 Procedure and treatment not carried out, unspecified reason
CPT/HCPCS: 80053; 85025; 96365; 96367; 96375; 96413; J1100; J1200; J1642; J2469; J3490; J7050; J9267

== ENCOUNTER 2023-06-22 06:00 | Outpatient (RCR) | payer BC, SELFPAY | END 2023-07-21 23:59 | disposition home or self-care (01) | LOC: APT 06:00 | PROVIDERS: Visit Provider Specialist | DX: G62.9 Polyneuropathy, unspecified (principal) | CPT/HCPCS: 97110; 97161 ==

== ENCOUNTER 2023-06-26 20:00 | Outpatient (CLI) | payer BC, SELFPAY | END 2023-06-26 20:01 | disposition home or self-care (01) | LOC: SLEEP 06-27 06:32 | PROVIDERS: PCP Nurse Practitioner; Visit Provider Nurse Practitioner | DX: G47.33 Obstructive sleep apnea (adult) (pediatric) (principal); Z99.89 Dependence on other enabling machines and devices | CPT/HCPCS: 95811 ==

== ENCOUNTER 2023-07-12 09:19 | Outpatient (CLI) | payer BC, SELFPAY ==
--- NOTE | 2023-07-12 09:30 | MR_ITS ---
WS: [id number] MRI BRAIN WITH AND WITHOUT CONTRAST HISTORY: falling COMPARISON: 01/03/2022 TECHNIQUE: Multiplanar imaging performed through the brain with MultiHance ml's IV. No acute infarct. Diffusion weighted imaging is negative for acute infarct. There has been a significant change in appearance of the brain since the prior examination. There are in numerable T2 and FLAIR signal hyperintensities throughout the brain which enhance. Findings lesio ns within the infratentorial and supratentorial brain. Are consistent with metastatic disease. There are several areas of enhancement involving the midbrain and medulla. Innumerable lesions within the c erebellum. There is no midline shift. These lesions range in size from a few millimeters with the lar gest measuring approximately 10 mm. No hemorrhage. There is peritumoral edema but no midline shift. S everal of the enhancing lesions are closely associated with the ventricles but no definite intraventr icular lesions. No hydrocephalus. Clivus and pituitary gland are normal. Paranasal sinuses: Well aerated with no significant disease. Mastoid air cells: Small amount of fluid in the RIGHT mastoid air cells. Calvarium and scalp: Normal. IMPRESSION: 1. New, innumerable metastases throughout the brain and brainstem. Enhancing lesions are los likely metastatic due to the patient's history. Lesions range in size from a few millimeters to 10 mm. Metas tatic masses within the medulla, midbrain, posterior fossa in the supratentorial brain. 2. There is peritumoral edema but there is no midline shift and no hydrocephalus.
[2023-07-12] MEDS: gadobenate dimeglumine 20 mL vial IV (11:02)
== END 2023-07-12 09:20 | disposition home or self-care (01) ==
LOC: RAD 09:21
PROVIDERS: PCP Nurse Practitioner; Visit Provider Nurse Practitioner Family
DX: C50.912 Malignant neoplasm of unspecified site of left female breast (principal); C79.31 Secondary malignant neoplasm of brain; C71.7 Malignant neoplasm of brain stem; W19.XXXA Unspecified fall, initial encounter; D70.1 Agranulocytosis secondary to cancer chemotherapy; T45.1X5A Adverse effect of antineoplastic and immunosuppressive drugs, initial encounter
CPT/HCPCS: 70553; A9577

== ENCOUNTER 2023-07-20 09:00 | Oncology outpatient (recurring) (ONCR) | payer BC, SELFPAY ==
--- NOTE | 2023-07-11 17:08 | N.ONRAD NP_ITS ---
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 Adjuvant chemotherapy completed here 06/21/2023. Here to address adjuvant breast radiation treatment. Radiotherapy to date: Summary. No prior radiation therapy. Chief Complaint / History of Present Illness: She initially noted an asymptomatic mass in lateral left breast in 2020. Covid pandemic delayed evaluation. MMG and US revealed two separate breast masses. Bx 10/12/2022 Gr 2 IDC ER/SC/H2N negative. Lumpectomy and ALNS 11/10/2022 Gr 3 two lesions 2.7 cm and 2.2 cm size by 0.1cm with closest margin 0.7 cm from DCIS. 0/5 LN involved. Received adjuvant chemo with Amadeo and Cytoxan x 4 followed by taxol x 12 completed 06/21/2023. She had severe fatigue and extremity neuropathy worse in feet that has reduced her mobility. She now walks with a walker. Working from home on computer. Some modest weight loss. Appetite ok. She just began home PT to improve strength and mobility. Current Medications: No previous radiation therapy. calcium carbonate (Calcium) 600 mg PO QDAY PRN, [CPAP supplies As directed] , dexamethasone 20 mg (5 x 4 mg) PO DIRECTED, doxepin 10 mg PO TID, famotidine (Pepcid) 40 mg PO DAILY, gabapentin 300 mg PO Q8H, lidocaine-prilocaine 2.5-2.5 % 1 applic topical ONCE, magnesium hydroxide (Milk of Magnesia) 15 mL PO DAILY PRN, metoprolol succinate ER (Toprol XL) 25 mg PO DAILY, nystatin 1 mL PO DAILY, nystatin 1 applic topical BID PRN, prochlorperazine maleate (Compazine) 10 mg PO Q6H PRN, semaglutide (Ozempic) 0.5 mg (0.4 mL) SUBCUT .weekly, valsartan (Diovan) 80 mg PO DAILY, venlafaxine ER (Effexor XR) 150 mg PO QAM, zonisamide 50 mg PO BID Allergies: naproxen [From Naprosyn] Allergy (Verified 06/21/23 11:39)Hives, difficulty breathing Medical History: Abdominal wall hernia, Atypical chest pain, Breast cancer, left, Breast cancer, left, Chest pain, Controlled diabetes mellitus with hyperglycemia, without long-term current use of insulin, Dyslipidemia, Dyslipidemia (high LDL; low HDL), Endometrial polyp, Generalized anxiety disorder, Hypertension, Impacted cerumen of both ears, CHANI on CPAP, Ovarian cyst, left, Palpitations (~10/2019), Port-A-Cath in place, Surgical History: History of arthroscopy of left shoulder, History of bilateral cataract extraction, History of cholecystectomy, History of detached retina repair- Left eye, History of elbow surgery, History of lumpectomy of left breast, Hx of hernia repair, S/P arthroscopic surgery of left knee, Status post hysteroscopic polypectomy Family History: No cancer history in family Social History: x 14 years. 3 children son and daughter live with her at home. Mother also living with her. 1 daughter nearby. Working at home for [employer]. Non-smoker, non-drinker. Watches TV. Not yet driving. Vital Signs: Performed on 07/11/2023 10:38 AM BMI - 44.357 kg/m2 (high), Height - 63 in, Weight - 250.4 lbs, Temperature - 96.5 f, Pulse - 87 /min, Respiration - 18 /min, O2 Sat - 99 %, Pain - 0, Fatigue - 0 and BP - 142/ 68 mm(hg)(high/). Physical Exam: Alopecia resolving, Walking here with walker. No cervical or supraclavicular adenopathy. No arm edema with arms having full range of motion Left breast supple well healed incision in the UOQ. Breasts unremarkable to palpation. Performance Status: ECOG PS 1-2 Pathology: See above Lab: No new labs done. Imaging: See HPI Impression: Multi-centric St II (T2 N0 M0) Gr3 IDC of left breast. Both primary lesions well resected with clear margins. Now recovering slowly from chemo. Plan 42 Gy to left breast in 16 fractions and 10 Gy boost in 4 fractions. Discussed in detail with patient, sister and mother. Signed by: 07/11/2023 5:06:43 PM <<Signature on File>> Time spent with patient: CPT Code: CPT Code:
--- NOTE | 2023-07-18 15:13 | ONCRAD TMN_ITS ---
Radiation Oncology Weekly Treatment Management Patient: Cary Taylor> MR#: [id number] : 1965> Attending Physician: Jose Guadalupe Hunter Date of Service: 07/18/2023 Referring Physician(s) : Diagnosis: C79.31 - Secondary malignant neoplasm of brain, Diagnosed 07/12/2023 (Active) Radiotherapy to date: Course: Whole Brain 2022, Treatment Site: [id number], Ref. ID: WBrain, Energy: 15X/6X, Dose/Fx (cGy): 300, #Fx: 3 / 10, Dose Correction (cGy): 0, Total Dose (cGy): 900, Start Date: 07/16/2023, Elapsed Days: 2 Reason for visit: The patient is being seen today as part of their regularly scheduled weekly on treatment visits to assess for acute toxicities from radiotherapy. Review of Systems: Tolerating treatment well. Vital Signs: Physical Exam: Imaging: Radiation therapy imaging related to accurate target localization (i.e. KV, MV and CBCT) was reviewed. Appropriate changes, if any, were made to ensure treatment accuracy. Plan: Patient is needing a wheelchair to improve their mobility at home and will help her with daily activities. She has brain metastasis which affects her balance and is in danger of falling. After trying the walker her legs are too weak to walk to get around the house. Her condition has changed significantly recently. She is capable of maneuvering a manual wheelchair. Continue treatment as planned. Signed by: Jose Guadalupe Hunter 07/19/2023 3:21:00 PM Telemedicine Consent Patient seen today via Telemedicine by agreement and consent of patient. Telemedicine technology used during the visit include audio and, as available, review of images. This patient encounter is appropriate and reasonable under the circumstances given the patient???s particular presentation at this time. The patient has been advised of the potential risks and limitations of this mode of treatment (including but not limited to the absence of in-person examination) and has agreed to be treated in a remote fashion in spite of them. Any and all of the patient???s/patient???s family???s questions on this issue have been answered and I have made no promises or guarantees to the patient. The patient has also been advised to contact this office for worsening conditions or problems, and seek emergency medical treatment and/or call 911 if the patient deems either necessary.
[2023-07-20 09:05] VITALS: BP 125/84; PULSE 87; RESP 17; TEMP 36.3; O2SAT 98
== END 2023-07-21 23:59 | disposition home or self-care (01) ==
PROVIDERS: PCP Nurse Practitioner; Visit Provider Radiology Radiation Oncology
DX: C50.812 Malignant neoplasm of overlapping sites of left female breast (principal); Z51.0 Encounter for antineoplastic radiation therapy; Z53.9 Procedure and treatment not carried out, unspecified reason
CPT/HCPCS: 77290; 77295; 77300; 77334; 77412; 77417; 99024; 99205; J1642

== ENCOUNTER 2023-07-31 13:10 | Oncology outpatient (recurring) (ONCR) | payer BC, MEDICAID, SELFPAY ==
--- NOTE | 2023-07-23 17:39 | ONCRAD TMN_ITS ---
Radiation Oncology Weekly Treatment Management Patient: Brandon Torres MR#: [id number] : 1965> Attending Physician: Jose Guadalupe Hunter Date of Service: 07/23/2023 Referring Physician(s) : Diagnosis: C79.31 - Secondary malignant neoplasm of brain, Diagnosed 07/12/2023 (Active) Radiotherapy to date: Course: Whole Brain 2022, Treatment Site: [id number], Ref. ID: WBrain, Energy: 15X/6X, Dose/Fx (cGy): 300, #Fx: 6 / 10, Dose Correction (cGy): 0, Total Dose (cGy): 1,800, Start Date: 07/16/2023, Elapsed Days: 7 Reason for visit: The patient is being seen today as part of their regularly scheduled weekly on treatment visits to assess for acute toxicities from radiotherapy. Review of Systems: Doing well with treatment. Went to the [place] of the season. Tolerating steroids well. No ROSARIO,N or V. Vital Signs: Performed on 07/23/2023 4:21 PM BMI - 44.286 kg/m2 (high), Height - 63 in, Weight - 250 lbs, Temperature - 97.1 f, Pulse - 108 /min (high), Respiration - 18 /min, O2 Sat - 98 %, Pain - 0, Fatigue - 0 and BP - 139/ 70 mm(hg). Physical Exam: Oral cavity clear, no oral candidiasis. Imaging: Radiation therapy imaging related to accurate target localization (i.e. KV, MV and CBCT) was reviewed. Appropriate changes, if any, were made to ensure treatment accuracy. Plan: good tolerance of treatment. Steroid taper given which concludes steroids on 08/20/2023. She completes treatment 07/27/2023. FU brain MRI in 1 to 2 months. She requires a wheelchair to improve mobility at home. She has brain metastases which affect her balance which puts her at risk of falling. After trying a walker, her legs are too weak to get around the house. Her condition has recently declined. She is capable of maneuvering a manual wheelchair. Signed by: Jose Guadalupe Hunter 07/23/2023 5:43:44 PM
--- NOTE | 2023-07-31 13:02 | N.ONRD TS_ITS ---
Radiation Oncology Treatment Summary Patient: Chronister>Cary> MR#: [id number] : 1965> Age: 57> Sex: Female Dictated by: Jose Guadalupe Hunter Date of Service: 07/27/2023 Referring Physician(s) : Diagnosis: C79.31 - Secondary malignant neoplasm of brain, Diagnosed 07/12/2023 (Active) Radiotherapy to Date: Course: Whole Brain 2022, Treatment Site: [id number], Ref. ID: WBrain, Energy: 15X/6X, Dose/Fx (cGy): 300, #Fx: , Dose Correction (cGy): 0, Total Dose (cGy): 3,000, Start Date: 07/16/2023, End Date: 07/27/2023, Elapsed Days: 11 Clinical Summary: The patient tolerated RT well. No ROSARIO, N or V. Steroids well tolerated. No oral candidiasis seen. Plan: End of treatment today. FU MRI head in 1 to 2 months. Complete steroid taper as directed. Steroids end 08/20/2023 Returned patient to medical oncology. Signed by: Jose Guadalupe Hunter>07/31/2023 1:01:48 PM <<Signature on File>>
== END 2023-08-21 23:59 | disposition home or self-care (01) ==
PROVIDERS: PCP Nurse Practitioner; Visit Provider Radiology Radiation Oncology
DX: C50.812 Malignant neoplasm of overlapping sites of left female breast (principal); Z51.0 Encounter for antineoplastic radiation therapy; C50.912 Malignant neoplasm of unspecified site of left female breast; Z51.11 Encounter for antineoplastic chemotherapy; Z95.828 Presence of other vascular implants and grafts; G62.9 Polyneuropathy, unspecified; M60.9 Myositis, unspecified
CPT/HCPCS: 77336; 77412; 77417; 77427

== ENCOUNTER 2023-08-13 00:42 | Emergency (ER) | payer MEDICAID, SELFPAY ==
[2023-08-13 00:44] VITALS: BP 131/93; PULSE 119; RESP 18; TEMP 37.1; O2SAT 94; BMI 45.7
[2023-08-13 00:53] VITALS: BP 131/93; PULSE 110; RESP 18; O2SAT 95
--- NOTE | 2023-08-13 01:18 | CTR_ITS ---
PROCEDURE INFORMATION: Exam: CTA Chest With Contrast Exam date and time: 08/13/2023 1:52 AM Age: 57 years old Clinical indication: Abdominal pain; Right; Other: N/a; Chest wall pain; Prior surgery; Surgery date: 6+ months; Surgery type: Chest port. Lumpectomy. Gb. Hernia repair; Patient HX: RT lower chest wall/flank pain with tachycardia. History of metastatic breast cancer. ; Additional info: R flank pain, tachycardia, cancer PT TECHNIQUE: Imaging protocol: Computed tomographic angiography of the chest with contrast. Exam focused on the arteries. 3D rendering (Not supervised by radiologist): MIP and/or 3D reconstructed images were created by the technologist. Radiation optimization: All CT scans at this facility use at least one of these dose optimization techniques: automated exposure control; mA and/or kV adjustment per patient size (includes targeted exams where dose is matched to clinical indication); or iterative reconstruction. Contrast material: OMNI 350; Contrast volume: 100 ml; Contrast route: INTRAVENOUS (IV); REPORTING DATA: Count of CT and Cardiac NM exams in prior 12 months: This patient has received 5 known CTs and 0 known cardiac nuclear medicine studies in the 12 months prior to the current study. COMPARISON: CT angio chest w abd pel w con 10/30/2022 10:02 PM RADIATION DOSE METRICS: Total DLP (mGy-cm): 1572.55 FINDINGS: Tubes, catheters and devices: The tip of the right chest port extends to the right atrium. Pulmonary arteries: Normal. No pulmonary emboli. Aorta: Unremarkable. No aortic aneurysm. No aortic dissection. Lungs: Benign 6 mm calcified granuloma in the left lung upper lobe. No lobar consolidation, lung mass, or pulmonary edema. Pleural spaces: Unremarkable. No pneumothorax. No pleural effusion. Heart: Mild cardiomegaly. Lymph nodes: Multiple nonspecific calcified left hilar lymph nodes measure up to 1.2 cm. Multiple prominent subcarinal lymph nodes are seen. Metastatic disease to the mediastinal lymph nodes can not be excluded. The largest subcarinal lymph node measures 1.6 cm. Bones/joints: Unremarkable. No acute fracture. Soft tissues: Unremarkable. PROCEDURE INFORMATION: Exam: CT Abdomen And Pelvis With Contrast Exam date and time: 08/13/2023 1:52 AM Age: 57 years old Clinical indication: Abdominal pain; Right; Other: N/a; Chest wall pain; Prior surgery; Surgery date: 6+ months; Surgery type: Chest port. Lumpectomy. Gb. Hernia repair; Patient HX: RT lower chest wall/flank pain with tachycardia. History of metastatic breast cancer. ; Additional info: R flank pain, tachycardia, cancer PT TECHNIQUE: Imaging protocol: Computed tomography of the abdomen and pelvis with contrast. Radiation optimization: All CT scans at this facility use at least one of these dose optimization techniques: automated exposure control; mA and/or kV adjustment per patient size (includes targeted exams where dose is matched to clinical indication); or iterative reconstruction. Contrast material: OMNI 350; Contrast volume: 100 ml; Contrast route: INTRAVENOUS (IV); REPORTING DATA: Count of CT and Cardiac NM exams in prior 12 months: This patient has received 5 known CTs and 0 known cardiac nuclear medicine studies in the 12 months prior to the current study. COMPARISON: CT angio chest w abd pel w con 10/30/2022 10:02 PM RADIATION DOSE METRICS: Total DLP (mGy-cm): 1572.55 FINDINGS: Liver: Advanced hepatic steatosis without hepatomegaly. Three ill-defined 2.2 cm, 1.9 cm, and 1.8 cm ill-defined hypodense masses in the right lobe of the liver concerning for metastases. MRI of the liver with and without IV contrast, liver mass protocol is recommended to further evaluate. Gallbladder and bile ducts: Cholecystectomy clips. There is no common bile duct dilatation. Pancreas: Normal. No ductal dilation. Spleen: Normal. No splenomegaly. Adrenal glands: Normal. No mass. Kidneys and ureters: Normal. No hydronephrosis. Stomach and bowel: Unremarkable. No obstruction. No mucosal thickening. Appendix: No evidence of appendicitis. Intraperitoneal space: Unremarkable. No free air. No significant fluid collection. Vasculature: Unremarkable. No abdominal aortic aneurysm. Lymph nodes: Unremarkable. No enlarged lymph nodes. Urinary bladder: Unremarkable as visualized. Reproductive: Unremarkable as visualized. Bones/joints: No acute fracture. Two 2.3 cm and 0.9 cm sclerotic masses in the right iliac bone, a 1.5 cm sclerotic mass in the left iliac bone, and an 8 mm sclerotic mass in the right sacrum are concerning for possible bone metastases. Soft tissues: A 2.1 cm fat containing hernia in the right upper ventral abdominal wall does not contain any bowel. The fat containing hernia sac in the subcutaneous adipose soft tissues of the ventral abdominal wall measures 12.8 cm. A 1.1 cm fat containing umbilical hernia does not contain any bowel. CT/CT angio chest w abd pel w con IMPRESSION: 1. No acute findings. 2. Mild cardiomegaly. 3. Multiple nonspecific calcified left hilar lymph nodes measure up to 1.2 cm. Multiple prominent subcarinal lymph nodes are seen. Metastatic disease to the mediastinal lymph nodes can not be excluded. The largest subcarinal lymph node measures 1.6 cm. IMPRESSION: 1. No acute findings. 2. Advanced hepatic steatosis without hepatomegaly. Three ill-defined 2.2 cm, 1.9 cm, and 1.8 cm ill-defined hypodense masses in the right lobe of the liver concerning for metastases. MRI of the liver with and without IV contrast, liver mass protocol is recommended to further evaluate. 3. A 2.1 cm fat containing hernia in the right upper ventral abdominal wall does not contain any bowel. The fat containing hernia sac in the subcutaneous adipose soft tissues of the ventral abdominal wall measures 12.8 cm. 4. A 1.1 cm fat containing umbilical hernia does not contain any bowel. 5. No acute fracture. Two 2.3 cm and 0.9 cm sclerotic masses in the right iliac bone, a 1.5 cm sclerotic mass in the left iliac bone, and an 8 mm sclerotic mass in the right sacrum are concerning for possible bone metastases. Correlation with bone scan or PET/CTs recommended.
[2023-08-13 01:35] LABS: Basophils % 0.4 %; Eosinophils # 0.2 10^3/uL (0.0-0.8); Eosinophils % 2.5 %; Hematocrit 33.6 % (36-47); Lymphocytes % 12.3 %; Mean Corpuscular HGB Conc 32.1 g/dL (30-55); Mean Corpuscular Hemoglobin 29.6 pg (27-33); Mean Corpuscular Volume 92.1 fl (85-98); Mean Platelet Volume 10.1 fL (7.4-10.4); Monocytes # 0.7 10^3/uL (0.2-0.9); Neutrophils # 6.21 10^3/uL (1.8-7.7); Neutrophils % 76.4 %; Nucleated Red Blood Cells % 0 %; Platelet Count 283 10^3/cmm (157-399); Red Blood Count 3.65 10^6/uL (3.85-5.65); Red Cell Distribution Width 15.7 % (12.1-15.1); White Blood Count 8.12 10^3/uL (3.29-11.43)
[2023-08-13] MEDS: iohexol 350 mg/mL 500 mL Btl (per mL) IV (01:55)
[2023-08-13 01:56] LABS: Lactic Sepsis W/Reflex 1.7 mmol/L (0.5-2.2)
[2023-08-13 01:57] LABS: Alanine Aminotransferase 29 U/L (0-33); Albumin Level 3.3 g/dL (3.5-5.2); Alkaline Phosphatase 120 U/L (35-105); Anion Gap 12.2 (5-19); Aspartate Amino Transferase 33 U/L (0-32); Blood Urea Nitrogen 13 mg/dL (6-20); C Reactive Protein 49.5 mg/L (0.0-4.9); Calcium 9.2 mg/dL (8.5-10.5); Carbon Dioxide 23 mmol/L (22-29); Chloride 106 mmol/L (98-107); Globulin 3.4 g/dL (1.3-4.6); Glomerular Filtration Rate 86.2 mL/min (90-130); Glucose 141 mg/dL (65-115); Lipase 23 U/L (13-60); Osmolality Calculated 286 mOsm/kg (285-295); Potassium 4.2 mmol/L (3.5-5.1); Sodium 137 mmol/L (136-145); Total Bilirubin 0.3 mg/dL (0.15-1.2); Total Protein 6.7 g/dL (6.6-8.7)
--- NOTE | 2023-08-13 02:03 | W.ED.ABDPA2 ---
HPI - Abdominal Pain General: Chief Complaint: Abdominal Pain Stated Complaint: ABD PAIN Time Seen by Provider: 08/13/23 00:59 History of Present Illness: 57-year-old female presenting with right-sided flank pain and abdominal pain. She notes it is much worse if she takes of breath. Some pain with movement but not much. No nausea or vomiting. She is mildly short of breath. No cough. She was told by EMS that she had a fever, but she is not febrile here. She has a history of stage IV breast cancer. Radiation therapy ended 2 weeks ago. She is not under active chemotherapy. Associated Symptoms: Denies chills, diarrhea, fever(s), hematochezia, nausea and vomiting Review of Systems Const: Denies: fever(s), chills or body aches Eyes: Denies: change in vision Card: Denies: chest pain or palpitations Resp: Reports: dyspnea; Denies: productive cough, non-productive cough or wheezing GI: Reports: abdominal pain; Denies: nausea, vomiting, diarrhea or hematochezia : Reports: flank pain; Denies: difficulty voiding Skin/Breast: Denies: rash Neuro: Denies: headache(s), weakness in extremities, dizziness or confusion PFSH ED PFSH: Medical History Abdominal wall hernia Atypical chest pain Breast cancer, left Breast cancer, left Chest pain Controlled diabetes mellitus with hyperglycemia, without long-term current use of insulin Dyslipidemia Dyslipidemia (high LDL; low HDL) Endometrial polyp Generalized anxiety disorder Hypertension Impacted cerumen of both ears CHANI on CPAP Ovarian cyst, left Palpitations (~10/2019) Port-A-Cath in place Postmenopausal bleeding Patient was counseled regarding postmenopausal bleeding is bleeding that occurs 12 or more months after the last menstrual period and accounts for 5% of all gynecologic office visits. While it is not always a symptom of cancer, the exclusion of endometrial hyperplasia and carcinoma is the babcock issue in the evaluation of patients with postmenopausal bleeding. The primary evaluation of postmenopausal women who present with abnormal uterine bleeding includes a medical history and a pelvic examination. Studies to evaluate, are a uterine biopsy, ultrasound, hysteroscopy or dilation and curettage, may be required. Treatment will depend on the cause. An office hysteroscopy was recommended. The patient was counseled regarding the procedure. The office hysteroscopy showed an endometrial polyp on the posterior uterine wall. Surgical History History of arthroscopy of left shoulder History of bilateral cataract extraction History of cholecystectomy History of detached retina repair Left eye History of elbow surgery History of lumpectomy of left breast Hx of hernia repair S/P arthroscopic surgery of left knee Status post hysteroscopic polypectomy Family History Father Heart disease Cancer Hyperlipidemia Hypertension Mother Heart disease Thyroid disease Hyperlipidemia Hypertension Grandfather Cancer Maternal--prostate cancer Brother Stroke Unknown No problems noted. Sister Diabetes Hyperlipidemia Hypertension Brother Diabetes Hyperlipidemia Hypertension Grandmother Diabetes maternal Denies family history of Colon cancer Ovarian cancer Clotting disorder Breast cancer Anesthesia complication Bleeding disorder Uterine cancer Social History Smoking and tobacco/nicotine status: former use of tobacco/nicotine Quit status (tobacco/nicotine): has quit using Year quit tobacco: 2004 Former quit date comment: Smoked for 30 + years Second hand smoke exposure: No Alcohol intake: never Substance/Drug Use: never Adopted: No Caregiver/support person: No Lives independently: Yes Housing: House Marital status: service: No Current occupational status: employed Current occupation: [employer] Do you think of yourself as: Straight/Heterosexual Current gender identity: Female Physical Exam Const: COMMON NORMALS: no acute distress GENERAL APPEARANCE: cooperative; not ill appearing and not frail appearing HENMT: COMMON NORMALS: normocephalic, atraumatic and Normal external nose present HEAD & SCALP: normocephalic and atraumatic FACE & SINUS: normal facial exam and face symmetric NOSE: Normal external nose present Eye: COMMON NORMALS: Equal, round and reactive pupils present and EOMs intact bilaterally PUPIL: Yes Equal, round and reactive pupils present Neck/C-Spine: GENERAL: Yes trachea midline Chest: CHEST: Yes Symmetrical chest wall rise Resp: COMMON NORMALS: normal respiratory effort, No retractions, No use of accessory muscles and clear to auscultation bilaterally AUSCULTATION: clear to auscultation bilaterally Cardio: COMMON NORMALS: regular rhythm RATE: tachycardic RHYTHM: regular rhythm GI: COMMON NORMALS: Normal to inspection, nondistended, normoactive bowel sounds present Extremity: COMMON NORMALS: no pedal edema Neuro: KEVIN COMA SCALE: document GCS findings Richton coma scale eye opening: Spontaneous R[place]on coma scale verbal response: Orientated Richton coma scale motor response: Obey commands Richton coma scale total score: 15 SENSORY EXAM: Yes extremities (intact) Psych: COMMON NORMALS: speech normal SPEECH: Yes normal speech Skin: COMMON NORMALS: no rashes or lesions noted GENERAL SKIN EXAM: no rashes or lesions noted Course Vital Signs: Vital signs: Vital Signs Temperature 98.7 F 08/13/23 00:44 Pulse Rate 99 08/13/23 02:47 Respiratory Rate 18 08/13/23 02:47 Blood Pressure 114/85 08/13/23 02:47 Pulse Oximetry 93 08/13/23 02:47 Oxygen Delivery Me thod Room Air 08/13/23 02:47 MDM - Abdominal Pain Medical Decision Making On examination, this patient has poorly reproducible right-sided flank pain worse with any breathing. She is tachycardic. Saturations have been 94 to 95% on room air. Due to her history of cancer, CTA of the chest was thought necessary, we will follow through with abdomen and pelvis. Her CRP is 50. White blood cell count is only 8. Platelet count 283 with hemoglobin of 11. Other laboratory is not remarkable. CTA/CT is pending. Urinalysis shows urinary tract infection. CT of the abdomen pelvis with CTA of the chest showed no acute findings. Will allow her discharge. UTI will be treated. Lab Data 08/13/23 01:25 08/13/23 01:25 Labs/Radiology: Radiology Impressions Chest/Abdomen/Pelvis CT 08/13/23 01:18 IMPRESSION: 1. No acute findings. 2. Mild cardiomegaly. 3. Multiple nonspecific calcified left hilar lymph nodes measure up to 1.2 cm. Multiple prominent subcarinal lymph nodes are seen. Metastatic disease to the mediastinal lymph nodes can not be excluded. The largest subcarinal lymph node measures 1.6 cm. IMPRESSION: 1. No acute findings. 2. Advanced hepatic steatosis without hepatomegaly. Three ill-defined 2.2 cm, 1.9 cm, and 1.8 cm ill-defined hypodense masses in the right lobe of the liver concerning for metastases. MRI of the liver with and without IV contrast, liver mass protocol is recommended to further evaluate. 3. A 2.1 cm fat containing hernia in the right upper ventral abdominal wall does not contain any bowel. The fat containing hernia sac in the subcutaneous adipose soft tissues of the ventral abdominal wall measures 12.8 cm. 4. A 1.1 cm fat containing umbilical hernia does not contain any bowel. 5. No acute fracture. Two 2.3 cm and 0.9 cm sclerotic masses in the right iliac bone, a 1.5 cm sclerotic mass in the left iliac bone, and an 8 mm sclerotic mass in the right sacrum are concerning for possible bone metastases. Correlation with bone scan or PET/CTs recommended. Laboratory Results WBC 8.12 10^3/uL (3.29-11.43) 08/13/23 01:25 RBC 3.65 10^6/uL (3.85-5.65) L 08/13/23 01:25 Hgb 10.80 g/dL (11.27-16.99) L 08/13/23 01:25 Hct 33.6 % (36-47) L 08/13/23 01:25 MCV 92.1 fl (85-98) 08/13/23 01:25 MCH 29.6 pg (27-33) 08/13/23 01:25 MCHC 32.1 g/dL (30-55) 08/13/23 01:25 RDW 15.7 % (12.1-15.1) H 08/13/23 01:25 Plt Count 283 10^3/cmm (157-399) 08/13/23 01:25 MPV 10.1 fL (7.4-10.4) 08/13/23 01:25 Neut % (Auto) 76.4 % 08/13/23 01:25 Lymph % (Auto) 12.3 % 08/13/23 01:25 [place] % (Auto) 8.0 % 08/13/23 01:25 Eos % (Auto) 2.5 % 08/13/23 01:25 Baso % (Auto) 0.4 % 08/13/23 01:25 Neut # (Auto) 6.21 10^3/uL (1.8-7.7) 08/13/23 01:25 Lymph # (Auto) 1.0 10^3/uL (0.8-4.8) 08/13/23 01:25 [place] # (Auto) 0.7 10^3/uL (0.2-0.9) 08/13/23 01:25 Eos # (Auto) 0.2 10^3/uL (0.0-0.8) 08/13/23 01:25 Baso # (Auto) 0.0 10^3/uL (0.0-0.1) 08/13/23 01:25 Nucleated RBC % (auto) 0 % 08/13/23 01:25 Nucleated RBCs # 0.0 /100WBC 08/13/23 01:25 Sodium 137 mmol/L (136-145) 08/13/23 01:25 Potassium 4.2 mmol/L (3.5-5.1) 08/13/23 01:25 Chloride 106 mmol/L (98-107) 08/13/23 01:25 Carbon Dioxide 23 mmol/L (22-29) 08/13/23 01:25 Anion Gap 12.2 (5-19) 08/13/23 01:25 BUN 13 mg/dL (6-20) 08/13/23 01:25 Creatinine 0.7 mg/dL (0.5-0.9) 08/13/23 01:25 GFR Calculation 86.2 mL/min (90-130) L 08/13/23 01:25 Glucose 141 mg/dL (65-115) H 08/13/23 01:25 Calculated Osmolality 286 mOsm/kg (285-295) 08/13/23 01:25 Lactic Acid 1.7 mmol/L (0.5-2.2) 08/13/23 01:25 Calcium 9.2 mg/dL (8.5-10.5) 08/13/23 01:25 Total Bilirubin 0.3 mg/dL (0.15-1.2) 08/13/23 01:25 AST 33 U/L (0-32) H 08/13/23 01:25 ALT 29 U/L (0-33) 08/13/23 01:25 Alkaline Phosphatase 120 U/L (35-105) H 08/13/23 01:25 C-Reactive Protein 49.5 mg/L (0.0-4.9) H 08/13/23 01:25 Total Protein 6.7 g/dL (6.6-8.7) 08/13/23 01:25 Albumin 3.3 g/dL (3.5-5.2) L 08/13/23 01:25 Globulin 3.4 g/dL (1.3-4.6) 08/13/23 01:25 Lipase 23 U/L (13-60) 08/13/23 01:25 Urine Color Yellow (Yellow) 08/13/23 02:55 Urine Appearance Clear (CLEAR) 08/13/23 02:55 Urine pH 7 (5-7) 08/13/23 02:55 Ur Specific [place] 1.005 (1.005-1.030) 08/13/23 02:55 Urine Protein Neg (Negative) 08/13/23 02:55 Urine Glucose (UA) Norm (Normal) 08/13/23 02:55 Urine Ketones Negative (Negative) 08/13/23 02:55 Urine Blood Neg (Negative) 08/13/23 02:55 Urine Nitrate Negative (Negative) 08/13/23 02:55 Urine Bilirubin Neg (Negative) 08/13/23 02:55 Urine Urobilinogen Neg mg/dL (Negative) 08/13/23 02:55 Ur Leukocyte Esterase 2+ (Negative) H 08/13/23 02:55 Urine RBC Rare /hpf (0-2) 08/13/23 02:55 Urine WBC 15-25 /hpf (0-5) H 08/13/23 02:55 Ur Squamous Epith Cells 5-10 /hpf (0-5) H 08/13/23 02:55 Amorphous Sediment 1+ /hpf 08/13/23 02:55 Urine Bacteria Trace /hpf (NONE) 08/13/23 02:55 Urine Mucus 1+ /hpf 08/13/23 02:55 All radiology interpretation(s) finalized by discharge Discharge Plan Discharge Patient Disposition: Home Clinical Impression: Urinary tract infection Condition: Stable Prescriptions: New cefdinir 300 mg capsule 300 mg PO BID Qty: 14 0RF hydrocodone-acetaminophen 5-325 mg tablet 1 tab PO Q8H PRN (Reason: pain) Qty: 7 0RF No Action calcium carbonate [Calcium 600] 600 mg calcium (1,500 mg) tablet 600 mg PO QDAY PRN (Reason: Heartburn) nystatin 100,000 unit/mL suspension 1 ml PO DAILY Qty: 60 0RF Rx Instructions: place a few drops on a Q-tip and daub at corners of mouth magnesium hydroxide [Milk of Magnesia] 400 mg/5 mL suspension 15 ml PO DAILY PRN dexamethasone 1 mg tablet See Rx Instructions PO BID Qty: 74 0RF Rx Instructions: Take 4 tablets twice daily for 7 days, then 2 tablets twice daily for 3 days, then 1 tablet twice daily for 3 days.Take with food nystatin 100,000 unit/gram powder 1 applic TOPICAL BID PRN (Reason: itching) Qty: 30 2RF Patient Comments: patient states she has a perscription, but has never needed to take it doxepin 10 mg capsule 10 mg PO TID Qty: 270 0RF famotidine [Pepcid] 40 mg tablet 40 mg PO DAILY Qty: 90 0RF Ozempic 0.25 mg or 0.5 mg(2 mg/1.5 mL) pen injector 0.5 mg SUBCUT .weekly Qty: 4.5 0RF Rx Instructions: ON sun valsartan [Diovan] 80 mg tablet 80 mg PO DAILY Qty: 90 0RF zonisamide 50 mg capsule 50 mg PO BID Qty: 180 0RF gabapentin 300 mg capsule 300 mg PO Q8H Qty: 90 4RF prochlorperazine maleate [Compazine] 10 mg tablet 10 mg PO Q6H PRN (Reason: nausea and vomiting) Qty: 30 2RF lidocaine-prilocaine 2.5-2.5 % cream 1 applic topical ONCE Qty: 30 1RF Rx Instructions: apply to skin over port 30-60 minutes prior to port access. (DME) manual wheelchair See Rx Instructions .Route .MEDSUPPLY Qty: 1 0RF Rx Instructions: As directed venlafaxine [Effexor XR] 150 mg capsule,extended release 24hr 150 mg PO QAM Qty: 90 0RF metoprolol succinate [Toprol XL] 25 mg tablet extended release 24 hr 25 mg PO DAILY Qty: 90 0RF (DME) CPAP machine and supplies See Rx Instructions .Route .MEDSUPPLY Qty: 1 5RF Rx Instructions: As directed auto titrating cpap machine and supplies 8-20cm dexamethasone 4 mg tablet 20 mg PO DIRECTED Qty: 40 3RF Rx Instructions: Take 20 mg (5 Tabs) 12 hours and 6 hours prior to Taxol Treatment Discharge Orders: Discharge ED (Routine); Ordered 08/13/23 Ordered By: Mor Santa Referrals: Negro Beckford FNP-C [Primary Care Provider] - Patient Instructions: Urinary Tract Infection in Women (ED), Opioid Safety, Pain Management Activity Restrictions/Additional Instructions: Antibiotics as directed. Return for worsening pain despite treatment, vomiting liquids or medications, fever despite 2-3 doses of antibiotics, other concerning symptoms. Let your doctor know later this morning that you were seen here. They may wish to see you this week. Follow-up with your doctor. Coding Level of Care Code ED Grinder Set Up Operator Jig for Cyndee Ashby
--- NOTE | 2023-08-13 02:36 | ECG_ITS ---
[facility] Test Date: 2023-08-13 Pat Name: Cary Taylor Department: Room: Gender: Female Power System Engineer: : [id number] Requested By: Mor Tony Order Number: [id number] Marci MD: Aurora Thomas M.D. Measurements Intervals [place] Rate: 100 P: 55 [place]: 175 QRS: 35 QRSD: 84 T: 24 QT: 339 QTc: 438 Interpretive Statements SINUS TACHYCARDIA ABNORMAL RHYTHM ECG Compared to ECG 10/31/2022 02:38:07 Sinus rhythm no longer present Electronically Signed On 08-13-2023 10:10:42 CDT by Aurora Thomas M.D. [email or web address]
[2023-08-13 02:47] VITALS: BP 114/85; PULSE 99; RESP 18; O2SAT 93
[2023-08-13 03:16] LABS: Urine Color Yellow (Yellow)
[2023-08-13 03:17] LABS: Add Urine Culture? Yes; Add Urine Microscopic? YES; Amorphous Sediment Urine 1+ /hpf; Bacteria Urine TRACE /hpf; Bilirubin Urine Neg (Negative); Blood Urine Neg (Negative); Glucose Urine UA Norm (Normal); Ketones Urine Negative (Negative); Leukocyte Esterase Urine 2+ (Negative); Mucus Urine 1+ /hpf; Nitrate Urine Negative (Negative); Protein Urine Neg (Negative); RBC Urine RARE /hpf (0-2); Specific Gravity, Urine 1.005 (1.005-1.030); Urine Appearance Clear (CLEAR); Urobilinogen Urine Neg (Negative); WBC Urine 15-25 /hpf (0-5); pH Urine 7 (5-7)
[2023-08-13] MEDS: cefTRIAXone 1,000 MG in sodium chloride 0.9% (plus) 50 ML 100 MG IV (03:57)
[2023-08-13 03:58] VITALS: BP 127/88; PULSE 97; RESP 18; O2SAT 95
[2023-08-13 04:41] VITALS: BP 106/66; PULSE 98; RESP 18; O2SAT 94
== END 2023-08-13 04:37 | disposition home or self-care (01) ==
PROVIDERS: Emergency Provider Emergency Medicine; PCP Nurse Practitioner
DX: N39.0 Urinary tract infection, site not specified (principal); Z87.891 Personal history of nicotine dependence; Z85.3 Personal history of malignant neoplasm of breast; E11.9 Type 2 diabetes mellitus without complications; E78.5 Hyperlipidemia, unspecified; I10 Essential (primary) hypertension
CPT/HCPCS: 36415; 71275; 74177; 80053; 81001; 83605; 83690; 85025; 86140; 87086; 93005; 96365; 96375; 99285; J0696; J1642; Q9967

== ENCOUNTER 2023-08-26 22:38 | Emergency (ER) | payer MEDICAID, SELFPAY ==
[2023-08-26 22:40] VITALS: BP 103/75; PULSE 106; RESP 16; TEMP 36.7; O2SAT 94; BMI 45.7
[2023-08-26 22:54] VITALS: BP 103/75; PULSE 100; RESP 16; O2SAT 97
--- NOTE | 2023-08-26 23:41 | CTR_ITS ---
PROCEDURE INFORMATION: Exam: CTA Chest With Contrast Exam date and time: 08/27/2023 1:02 AM Age: 57 years old Clinical indication: Pain and abnormal findings; Abnormal lab test; Abdominal pain; Localized; Right upper quadrant (ruq); Other: N/a; Prior surgery; Surgery date: 6+ months; Surgery type: Lumpectomy. Chest port. Gb. Hernia repair. Patient HX: Ruq pain with fever and elevated wbc. History of breast cancer with bone and liver mets. ; Additional info: Metastasis. Rule out pulmonary embolism TECHNIQUE: Imaging protocol: Computed tomographic angiography of the chest with contrast. Exam focused on the arteries. 3D rendering (Not supervised by radiologist): MIP and/or 3D reconstructed images were created by the technologist. Radiation optimization: All CT scans at this facility use at least one of these dose optimization techniques: automated exposure control; mA and/or kV adjustment per patient size (includes targeted exams where dose is matched to clinical indication); or iterative reconstruction. Contrast material: OMNI 350; Contrast volume: 100 ml; Contrast route: INTRAVENOUS (IV); REPORTING DATA: Count of CT and Cardiac NM exams in prior 12 months: This patient has received 6 known CTs and 0 known cardiac nuclear medicine studies in the 12 months prior to the current study. COMPARISON: 1. CT angio chest w abd pel w con 2023-08-13 01:[address] angio chest w abd pel w con 2022-10-30 22:02 RADIATION DOSE METRICS: Total DLP (mGy-cm): 1685.9 FINDINGS: Tubes, catheters and devices: Right chest port. Pulmonary arteries: Normal. No pulmonary emboli. Aorta: Unremarkable. No aortic aneurysm. No aortic dissection. Lungs: Unremarkable. No consolidation. No masses. Pleural spaces: Unremarkable. No pneumothorax. No pleural effusion. Heart: Unremarkable. No cardiomegaly. No pericardial effusion. Lymph nodes: Mediastinal and hilar calcified lymph nodes. Several mildly enhancing mediastinal and hilar lymph nodes, indeterminate. Bones/joints: Mild dextroconvex thoracic curvature. Soft tissues: Previous surgical changes in the left breast. Nodular soft tissue density in the left axillary region measuring 1.7 cm, question residual/recurrence. PROCEDURE INFORMATION: Exam: CT Abdomen And Pelvis With Contrast Exam date and time: 08/27/2023 1:02 AM Age: 57 years old Clinical indication: Pain and abnormal findings; Abnormal lab test; Abdominal pain; Localized; Right upper quadrant (ruq); Other: N/a; Prior surgery; Surgery date: 6+ months; Surgery type: Lumpectomy. Chest port. Gb. Hernia repair. Patient HX: Ruq pain with fever and elevated wbc. History of breast cancer with bone and liver mets. ; Additional info: Metastasis. Rule out pulmonary embolism TECHNIQUE: Imaging protocol: Computed tomography of the abdomen and pelvis with contrast. Radiation optimization: All CT scans at this facility use at least one of these dose optimization techniques: automated exposure control; mA and/or kV adjustment per patient size (includes targeted exams where dose is matched to clinical indication); or iterative reconstruction. Contrast material: OMNI 350; Contrast volume: 100 ml; Contrast route: INTRAVENOUS (IV); REPORTING DATA: Count of CT and Cardiac NM exams in prior 12 months: This patient has received 6 known CTs and 0 known cardiac nuclear medicine studies in the 12 months prior to the current study. COMPARISON: 1. CT angio chest w abd pel w con 2023-08-13 01:[address] angio chest w abd pel w con 2022-10-30 22:02 RADIATION DOSE METRICS: Total DLP (mGy-cm): 1685.9 FINDINGS: Liver: Innumerable liver masses measuring up to 3 cm. Increased in size and more numerous than prior. Gallbladder and bile ducts: Cholecystectomy. Pancreas: Normal. No ductal dilation. Spleen: Normal. No splenomegaly. Adrenal glands: Normal. No mass. Kidneys and ureters: Normal. No hydronephrosis. Stomach and bowel: Unremarkable. No obstruction. No mucosal thickening. Appendix: No evidence of appendicitis. Intraperitoneal space: Unremarkable. No free air. No significant fluid collection. Vasculature: Unremarkable. No abdominal aortic aneurysm. Lymph nodes: Unremarkable. No enlarged lymph nodes. Urinary bladder: Unremarkable as visualized. Reproductive: Unremarkable as visualized. Bones/joints: Unchanged scattered sclerotic bony lesions compatible with bony metastases. Soft tissues: Fat protruding upper abdominal wall hernia. CT/CT angio chest w abd pel w con IMPRESSION: 1. Several mildly enhancing mediastinal and hilar lymph nodes, indeterminate. 2. Previous surgical changes in the left breast. Nodular soft tissue density in the left axillary region measuring 1.7 cm, question residual/recurrence. 3. No acute abnormality or significant change. No pulmonary emboli. IMPRESSION: 1. Innumerable liver masses measuring up to 3 cm. Increased in size and more numerous than prior. 2. Unchanged scattered sclerotic bony lesions compatible with bony metastases. 3. Fat protruding upper abdominal wall hernia.
--- NOTE | 2023-08-26 23:44 | W.ED.ABDPA2 ---
Documented by User: CHERIE Pascual 08/27/23 00:35 HPI - Abdominal Pain General: Chief Complaint: Abdominal Pain Stated Complaint: ABD PAIN Time Seen by Provider: 08/26/23 22:45 History of Present Illness: Patient is a 57-year-old female with a past medical history significant for abdominal wall hernia, breast cancer with liver metastasis, and type 2 diabetes mellitus who presents to the emergency department for evaluation of right upper quadrant abdominal pain. Patient reports that her abdominal pain started earlier this afternoon and has continued to progress since onset. She denies any trauma or event that could have elicited her symptoms. She currently rates her pain as an 8 out of 10 in severity that she describes as a sharp/stabbing sensation. Patient reports that she had a fever earlier today of 102.6 ?F. Patient states that she used a temporal thermometer. Temperature in triage is 98.1 ?F. surgical history significant for cholecystectomy. Patient denies constipation, diarrhea, dysuria, hematuria, chest pain, shortness of breath, palpitations, lightheadedness, dizziness, headache, cough, congestion, sore throat, otalgia, otorrhea, melena, hematochezia, nausea, vomiting, or any other associated symptoms. No other complaints at this time. Associated Symptoms: Reports chills and fever(s); Denies dysuria, hematuria, nausea and vomiting Review of Systems General: Reports: 10 or more systems reviewed and unremarkable except in HPI and below Const: Reports: fever(s) and chills Eyes: Denies: change in vision or blurry vision ENMT: Denies: throat pain, odynophagia, ear or mastoid pain or ear discharge Card: Denies: chest pain or palpitations Resp: Denies: dyspnea, productive cough, non-productive cough or wheezing GI: Reports: abdominal pain; Denies: nausea or vomiting : Reports: flank pain; Denies: dysuria or hematuria Musc: Denies: neck pain, back pain or extremity pain Skin/Breast: Denies: rash Neuro: Denies: headache(s), numbness in extremities, weakness in extremities, dizziness or vertigo FORMERLY [facility], [facility] ED PFSH: Medical History Abdominal wall hernia Atypical chest pain Breast cancer, left Breast cancer, left Chest pain Controlled diabetes mellitus with hyperglycemia, without long-term current use of insulin Dyslipidemia Dyslipidemia (high LDL; low HDL) Endometrial polyp Generalized anxiety disorder Hypertension Impacted cerumen of both ears CHANI on CPAP Ovarian cyst, left Palpitations (~10/2019) Port-A-Cath in place Postmenopausal bleeding Patient was counseled regarding postmenopausal bleeding is bleeding that occurs 12 or more months after the last menstrual period and accounts for 5% of all gynecologic office visits. While it is not always a symptom of cancer, the exclusion of endometrial hyperplasia and carcinoma is the babcock issue in the evaluation of patients with postmenopausal bleeding. The primary evaluation of postmenopausal women who present with abnormal uterine bleeding includes a medical history and a pelvic examination. Studies to evaluate, are a uterine biopsy, ultrasound, hysteroscopy or dilation and curettage, may be required. Treatment will depend on the cause. An office hysteroscopy was recommended. The patient was counseled regarding the procedure. The office hysteroscopy showed an endometrial polyp on the posterior uterine wall. Surgical History History of arthroscopy of left shoulder History of bilateral cataract extraction History of cholecystectomy History of detached retina repair Left eye History of elbow surgery History of lumpectomy of left breast Hx of hernia repair S/P arthroscopic surgery of left knee Status post hysteroscopic polypectomy Family History Father Heart disease Cancer Hyperlipidemia Hypertension Mother Heart disease Thyroid disease Hyperlipidemia Hypertension Grandfather Cancer Maternal--prostate cancer Brother Stroke Unknown No problems noted. Sister Diabetes Hyperlipidemia Hypertension Brother Diabetes Hyperlipidemia Hypertension Grandmother Diabetes maternal Denies family history of Colon cancer Ovarian cancer Clotting disorder Breast cancer Anesthesia complication Bleeding disorder Uterine cancer Social History Smoking and tobacco/nicotine status: former use of tobacco/nicotine Quit status (tobacco/nicotine): has quit using Year quit tobacco: 2004 Former quit date comment: Smoked for 30 + years Second hand smoke exposure: No Alcohol intake: never Substance/Drug Use: never Adopted: No Caregiver/support person: No Lives independently: Yes Housing: House Marital status: service: No Current occupational status: employed Current occupation: [employer] Do you think of yourself as: Straight/Heterosexual Current gender identity: Female Physical Exam Const: COMMON NORMALS: no acute distress and patient oriented x3 OTHER: Patient is ill-appearing HENMT: COMMON NORMALS: normocephalic, atraumatic, moist oral mucous membranes and oropharynx normal HEAD & SCALP: normocephalic and atraumatic Eye: COMMON NORMALS: Equal, round and reactive pupils present, EOMs intact bilaterally and conjunctivae normal CONJUNCTIVA: Yes conjunctivae normal PUPIL: Yes Equal, round and reactive pupils present Neck/C-Spine: COMMON NORMALS: full ROM Chest: COMMONS NORMALS: normal inspection of the chest Resp: COMMON NORMALS: normal respiratory effort, No retractions, No use of accessory muscles, clear to auscultation bilaterally and percussion normal AUSCULTATION: clear to auscultation bilaterally PERCUSSION: percussion normal Cardio: COMMON NORMALS: No gallops present (Cardio), No clicks present (Cardio), No murmurs present (Cardio), No rub (Cardio) and Peripheral pulses 2+ throughout; negative for regular rate (Tachycardic) RATE: abnormal rate (Tachycardic) PERIPHERAL PULSES: Peripheral pulses 2+ throughout GI: OTHER: Normoactive bowel sounds in all 4 quadrants. Right upper quadrant tenderness noted to palpation. No McBurney's point tenderness, Rovsing sign, or peritoneal signs noted. No evidence of rebound tenderness. : OTHER: Right CVA tenderness noted. Extremity: OTHER: Patient has full passive and active range of motion in the bilateral upper and lower extremities. Neuro: COMMON NORMALS: patient oriented x3 OTHER: Sensation intact in the bilateral upper and lower extremities. Course Vital Signs: Vital signs: Vital Signs Temperature 98.1 F 08/26/23 22:40 Pulse Rate 100 08/27/23 02:43 Respiratory Rate 20 H 08/27/23 02:43 Blood Pressure 102/77 08/27/23 02:43 Pulse Oximetry 95 08/27/23 02:43 Oxygen Delivery Me thod Room Air 08/27/23 01:31 Oxygen Flow Rate 2 08/26/23 22:40 MDM - Abdominal Pain Medical Decision Making Patient is a 57-year-old female with a past medical history significant for abdominal wall hernia, breast cancer with liver metastasis, and type 2 diabetes mellitus who presents to the emergency department for evaluation of right upper quadrant abdominal pain. On physical examination patient is nontoxic and in no acute distress, however, the patient does appear ill. Patient is pale in appearance. Patient remained tachycardic throughout the ED course. Patient was given 1 L normal saline in the emergency department. CBC showed leukocytosis at 11.47. Hemoglobin is 9.90. CMP showed a AST of 47. Lipase is unremarkable. Urinalysis currently pending. Because of the patient's tachycardia, nasal cannula oxygen requirement, and known history of metastasis a CTA of the chest was ordered for evaluation of possible pulmonary embolism. CTA currently pending. CT of the abdomen pelvis with contrast was ordered for evaluation of the right upper quadrant abdominal pain. Patient does have a surgical history significant for cholecystectomy. CT of the abdomen pelvis with contrast currently pending. At this point in time plan of care was passed over to my colleague Dr. Santa in the emergency department. Lab Data 08/26/23 23:14 08/26/23 23:14 Labs/Radiology: Radiology Impressions Chest/Abdomen/Pelvis CT 08/26/23 23:41 IMPRESSION: 1. Several mildly enhancing mediastinal and hilar lymph nodes, indeterminate. 2. Previous surgical changes in the left breast. Nodular soft tissue density in the left axillary region measuring 1.7 cm, question residual/recurrence. 3. No acute abnormality or significant change. No pulmonary emboli. IMPRESSION: 1. Innumerable liver masses measuring up to 3 cm. Increased in size and more numerous than prior. 2. Unchanged scattered sclerotic bony lesions compatible with bony metastases. 3. Fat protruding upper abdominal wall hernia. Laboratory Results WBC 11.47 10^3/uL (3.29-11.43) H 08/26/23 23:14 RBC 3.47 10^6/uL (3.85-5.65) L 08/26/23 23:14 Hgb 9.90 g/dL (11.27-16.99) L 08/26/23: Hct 31.7 % (36-47) L 08/26/23 23:14 MCV 91.4 fl (85-98) 08/26/23 23:14 MCH 28.5 pg (27-33) 08/26/23 23: MCHC 31.2 g/dL (30-55) 08/26/23: RDW 15.5 % (12.1-15.1) H 08/26/23 23:14 Plt Count 387 10^3/cmm (157-399) 08/26/23 23:14 MPV 10.6 fL (7.4-10.4) H 08/26/23 23:14 Neut % (Auto) 77.4 % 08/26/23 23:14 Lymph % (Auto) 9.9 % 08/26/23 23:14 Gates % (Auto) 10.5 % 08/26/23 23:14 Eos % (Auto) 1.0 % 08/26/23 23:14 Baso % (Auto) 0.3 % 08/26/23 23:14 Neut # (Auto) 8.87 10^3/uL (1.8-7.7) H 08/26/23 23:14 Lymph # (Auto) 1.1 10^3/uL (0.8-4.8) 08/26/23 23:14 Gates # (Auto) 1.2 10^3/uL (0.2-0.9) H 08/26/23 23:14 Eos # (Auto) 0.1 10^3/uL (0.0-0.8) 08/26/23 23:14 Baso # (Auto) 0.0 10^3/uL (0.0-0.1) 08/26/23 23:14 Nucleated RBC % (auto) 0 % 08/26/23 23:14 Nucleated RBCs # 0.0 /100WBC 08/26/23 23:14 Sodium 136 mmol/L (136-145) 08/26/23 23:14 Potassium 4.4 mmol/L (3.5-5.1) 08/26/23 23:14 Chloride 104 mmol/L (98-107) 08/26/23 23:14 Carbon Dioxide 23 mmol/L (22-29) 08/26/23 23:14 Anion Gap 13.4 (5-19) 08/26/23 23:14 BUN 20 mg/dL (6-20) 08/26/23 23:14 Creatinine 0.9 mg/dL (0.5-0.9) 08/26/23 23:14 GFR Calculation 64.5 mL/min (90-130) L 08/26/23 23:14 Glucose 123 mg/dL (65-115) H 08/26/23 23:14 Calculated Osmolality 286 mOsm/kg (285-295) 08/26/23 23:14 Calcium 9.3 mg/dL (8.5-10.5) 08/26/23 23:14 Total Bilirubin 0.2 mg/dL (0.15-1.2) 08/26/23 23:14 AST 47 U/L (0-32) H 08/26/23 23:14 ALT 31 U/L (0-33) 08/26/23 23:14 Alkaline Phosphatase 165 U/L (35-105) H 08/26/23 23:14 Total Protein 7.0 g/dL (6.6-8.7) 08/26/23 23:14 Albumin 3.2 g/dL (3.5-5.2) L 08/26/23 23:14 Globulin 3.8 g/dL (1.3-4.6) 08/26/23 23:14 Lipase 29 U/L (13-60) 08/26/23 23:14 Urine Color Yellow (Yellow) 08/27/23 01:45 Urine Appearance Clear (CLEAR) 08/27/23 01:45 Urine pH 6.5 (5-7) 08/27/23 01:45 Ur Specific Hudson 1.010 (1.005-1.030) 08/27/23 01:45 Urine Protein 1+ (Negative) H 08/27/23 01:45 Urine Glucose (UA) Norm (Normal) 08/27/23 01:45 Urine Ketones 1+ (Negative) H 08/27/23 01:45 Urine Blood Neg (Negative) 08/27/23 01:45 Urine Nitrate Positive (Negative) H 08/27/23 01:45 Urine Bilirubin 1+ (Negative) H 08/27/23 01:45 Urine Urobilinogen 1 mg/dL (Negative) H 08/27/23 01:45 Ur Leukocyte Esterase 1+ (Negative) H 08/27/23 01:45 Urine RBC 0-4 /hpf (0-2) H 08/27/23 01:45 Urine WBC 15-25 /hpf (0-5) H 08/27/23 01:45 Ur Squamous Epith Cells 5-10 /hpf (0-5) H 08/27/23 01:45 Amorphous Sediment 1+ /hpf 08/27/23 01:45 Urine Bacteria Trace /hpf (NONE) 08/27/23 01:45 Urine Mucus 3+ /hpf 08/27/23 01:45 XR interpretation done by ED provider, pending radiology final review Discharge Plan Discharge Patient Disposition: Home Clinical Impression: Urinary tract infection, Right flank pain Condition: Stable Prescriptions: New Macrodantin 100 mg capsule 100 mg PO Q12H 10 Days Qty: 20 0RF Rx Instructions: must administer with a meal/food Lidoderm 5 % adhesive patch,medicated 1 patch topical DAILY Qty: 30 0RF Rx Instructions: leave on most painful area for up to 12 hrs No Action calcium carbonate [Calcium 600] 600 mg calcium (1,500 mg) tablet 600 mg PO QDAY PRN (Reason: Heartburn) nystatin 100,000 unit/mL suspension 1 ml PO DAILY Qty: 60 0RF Rx Instructions: place a few drops on a Q-tip and daub at corners of mouth nystatin 100,000 unit/gram powder 1 applic TOPICAL BID PRN (Reason: itching) Qty: 30 2RF Patient Comments: patient states she has a perscription, but has never needed to take it doxepin 10 mg capsule 10 mg PO TID Qty: 270 0RF Ozempic 0.25 mg or 0.5 mg(2 mg/1.5 mL) pen injector 0.5 mg SUBCUT .weekly Qty: 4.5 0RF Rx Instructions: ON sun valsartan [Diovan] 80 mg tablet 80 mg PO DAILY Qty: 90 0RF zonisamide 50 mg capsule 50 mg PO BID Qty: 180 0RF gabapentin 300 mg capsule 300 mg PO Q8H Qty: 90 4RF prochlorperazine maleate [Compazine] 10 mg tablet 10 mg PO Q6H PRN (Reason: nausea and vomiting) Qty: 30 2RF lidocaine-prilocaine 2.5-2.5 % cream 1 applic topical ONCE Qty: 30 1RF Rx Instructions: apply to skin over port 30-60 minutes prior to port access. (DME) manual wheelchair See Rx Instructions .Route .MEDSUPPLY Qty: 1 0RF Rx Instructions: As directed venlafaxine [Effexor XR] 150 mg capsule,extended release 24hr 150 mg PO QAM Qty: 90 0RF metoprolol succinate [Toprol XL] 25 mg tablet extended release 24 hr 25 mg PO DAILY Qty: 90 0RF (DME) CPAP machine and supplies See Rx Instructions .Route .MEDSUPPLY Qty: 1 5RF Rx Instructions: As directed auto titrating cpap machine and supplies 8-20cm famotidine [Pepcid] 40 mg tablet 40 mg PO DAILY Qty: 90 0RF hydrocodone-acetaminophen 5-325 mg tablet 1 tab PO Q8H PRN (Reason: pain) Qty: 7 0RF Discharge Orders: Discharge ED (Routine); Ordered 08/27/23 Ordered By: Mor Santa Referrals: Negro Beckford, [facility]AN[facility] [Primary Care Provider] - Patient Instructions: Urinary Tract Infection in Women (ED), Flank Pain (ED), Opioid Safety, Pain Management Activity Restrictions/Additional Instructions: Antibiotics as directed. You may use a Lidoderm patch as needed for pain. If this does not improve pain, you can take a pain pill you were prescribed earlier. Let your doctor know you were seen here with flank pain. They may wish to perform more testing. Otherwise let your doctor know to look for urine culture results in a couple of days. Return for worsening pain, fever despite 2-3 doses of antibiotics, vomiting liquids, other concerning symptoms. Stand Alone Forms: Work/School Release Coding Level of Care Code ED Hat Brim Curler for Chg Fwd Documented by User: Mor Santa DO 08/27/23 03:07 HPI - Abdominal Pain General: Chief Complaint: Abdominal Pain Stated Complaint: ABD PAIN Time Seen by Provider: 08/26/23 22:45 FORMERLY [facility], [facility] ED PFSH: Medical History Abdominal wall hernia Atypical chest pain Breast cancer, left Breast cancer, left Chest pain Controlled diabetes mellitus with hyperglycemia, without long-term current use of insulin Dyslipidemia Dyslipidemia (high LDL; low HDL) Endometrial polyp Generalized anxiety disorder Hypertension Impacted cerumen of both ears CHANI on CPAP Ovarian cyst, left Palpitations (~10/2019) Port-A-Cath in place Postmenopausal bleeding Patient was counseled regarding postmenopausal bleeding is bleeding that occurs 12 or more months after the last menstrual period and accounts for 5% of all gynecologic office visits. While it is not always a symptom of cancer, the exclusion of endometrial hyperplasia and carcinoma is the babcock issue in the evaluation of patients with postmenopausal bleeding. The primary evaluation of postmenopausal women who present with abnormal uterine bleeding includes a medical history and a pelvic examination. Studies to evaluate, are a uterine biopsy, ultrasound, hysteroscopy or dilation and curettage, may be required. Treatment will depend on the cause. An office hysteroscopy was recommended. The patient was counseled regarding the procedure. The office hysteroscopy showed an endometrial polyp on the posterior uterine wall. Surgical History History of arthroscopy of left shoulder History of bilateral cataract extraction History of cholecystectomy History of detached retina repair Left eye History of elbow surgery History of lumpectomy of left breast Hx of hernia repair S/P arthroscopic surgery of left knee Status post hysteroscopic polypectomy Family History Father Heart disease Cancer Hyperlipidemia Hypertension Mother Heart disease Thyroid disease Hyperlipidemia Hypertension Grandfather Cancer Maternal--prostate cancer Brother Stroke Unknown No problems noted. Sister Diabetes Hyperlipidemia Hypertension Brother Diabetes Hyperlipidemia Hypertension Grandmother Diabetes maternal Denies family history of Colon cancer Ovarian cancer Clotting disorder Breast cancer Anesthesia complication Bleeding disorder Uterine cancer Social History Smoking and tobacco/nicotine status: former use of tobacco/nicotine Quit status (tobacco/nicotine): has quit using Year quit tobacco: 2004 Former quit date comment: Smoked for 30 + years Second hand smoke exposure: No Alcohol intake: never Substance/Drug Use: never Adopted: No Caregiver/support person: No Lives independently: Yes Housing: House Marital status: service: No Current occupational status: employed Current occupation: [employer] Do you think of yourself as: Straight/Heterosexual Current gender identity: Female Course Vital Signs: Vital signs: Vital Signs Temperature 98.1 F 08/26/23 22:40 Pulse Rate 100 08/27/23 02:43 Respiratory Rate 20 H 08/27/23 02:43 Blood Pressure 102/77 08/27/23 02:43 Pulse Oximetry 95 08/27/23 02:43 Oxygen Delivery Me thod Room Air 08/27/23 01:31 Oxygen Flow Rate 2 08/26/23 22:40 MDM - Abdominal Pain Medical Decision Making Patient is a 57-year-old female with a past medical history significant for abdominal wall hernia, breast cancer with liver metastasis, and type 2 diabetes mellitus who presents to the emergency department for evaluation of right upper quadrant abdominal pain. On physical examination patient is nontoxic and in no acute distress, however, the patient does appear ill. Patient is pale in appearance. Patient remained tachycardic throughout the ED course. Patient was given 1 L normal saline in the emergency department. CBC showed leukocytosis at 11.47. Hemoglobin is 9.90. CMP showed a AST of 47. Lipase is unremarkable. Urinalysis currently pending. Because of the patient's tachycardia, nasal cannula oxygen requirement, and known history of metastasis a CTA of the chest was ordered for evaluation of possible pulmonary embolism. CTA currently pending. CT of the abdomen pelvis with contrast was ordered for evaluation of the right upper quadrant abdominal pain. Patient does have a surgical history significant for cholecystectomy. CT of the abdomen pelvis with contrast currently pending. At this point in time plan of care was passed over to my colleague Dr. Santa in the emergency department. 57-year-old female checked out at shift change. This lady has continued right-sided flank pain. She was awaiting CTA/CT results of the chest abdomen pelvis. It shows essentially nothing acute. There are innumerable liver masses measuring up to 3 cm, that could be a source of pain. Urinalysis was pending as well, and is slightly contaminated, but still shows evidence of pyuria. Culture from prior urinalysis only grew kareen. We will attempt treatment with a different antibiotic. Lidocaine patches for pain, as the patient would like not to have to take pain pills if possible. She does have them at home. Lab Data 08/26/23 23:14 08/26/23 23:14 Labs/Radiology: Radiology Impressions Chest/Abdomen/Pelvis CT 08/26/23 23:41 IMPRESSION: 1. Several mildly enhancing mediastinal and hilar lymph nodes, indeterminate. 2. Previous surgical changes in the left breast. Nodular soft tissue density in the left axillary region measuring 1.7 cm, question residual/recurrence. 3. No acute abnormality or significant change. No pulmonary emboli. IMPRESSION: 1. Innumerable liver masses measuring up to 3 cm. Increased in size and more numerous than prior. 2. Unchanged scattered sclerotic bony lesions compatible with bony metastases. 3. Fat protruding upper abdominal wall hernia. Laboratory Results WBC 11.47 10^3/uL (3.29-11.43) H 08/26/23 23:14 RBC 3.47 10^6/uL (3.85-5.65) L 08/26/23 23:14 Hgb 9.90 g/dL (11.27-16.99) L 08/26/23 23:14 Hct 31.7 % (36-47) L 08/26/23 23:14 MCV 91.4 fl (85-98) 08/26/23 23:14 MCH 28.5 pg (27-33) 08/26/23 23:14 MCHC 31.2 g/dL (30-55) 08/26/23 23:14 RDW 15.5 % (12.1-15.1) H 08/26/23 23:14 Plt Count 387 10^3/cmm (157-399) 08/26/23 23:14 MPV 10.6 fL (7.4-10.4) H 08/26/23 23:14 Neut % (Auto) 77.4 % 08/26/23 23:14 Lymph % (Auto) 9.9 % 08/26/23 23:14 Gates % (Auto) 10.5 % 08/26/23 23:14 Eos % (Auto) 1.0 % 08/26/23 23:14 Baso % (Auto) 0.3 % 08/26/23 23:14 Neut # (Auto) 8.87 10^3/uL (1.8-7.7) H 08/26/23 23:14 Lymph # (Auto) 1.1 10^3/uL (0.8-4.8) 08/26/23 23:14 Gates # (Auto) 1.2 10^3/uL (0.2-0.9) H 08/26/23 23:14 Eos # (Auto) 0.1 10^3/uL (0.0-0.8) 08/26/23 23:14 Baso # (Auto) 0.0 10^3/uL (0.0-0.1) 08/26/23 23:14 Nucleated RBC % (auto) 0 % 08/26/23 23:14 Nucleated RBCs # 0.0 /100WBC 08/26/23 23:14 Sodium 136 mmol/L (136-145) 08/26/23 23:14 Potassium 4.4 mmol/L (3.5-5.1) 08/26/23 23:14 Chloride 104 mmol/L (98-107) 08/26/23 23:14 Carbon Dioxide 23 mmol/L (22-29) 08/26/23 23:14 Anion Gap 13.4 (5-19) 08/26/23 23:14 BUN 20 mg/dL (6-20) 08/26/23 23:14 Creatinine 0.9 mg/dL (0.5-0.9) 08/26/23 23:14 GFR Calculation 64.5 mL/min (90-130) L 08/26/23 23:14 Glucose 123 mg/dL (65-115) H 08/26/23 23:14 Calculated Osmolality 286 mOsm/kg (285-295) 08/26/23 23:14 Calcium 9.3 mg/dL (8.5-10.5) 08/26/23 23:14 Total Bilirubin 0.2 mg/dL (0.15-1.2) 08/26/23 23:14 AST 47 U/L (0-32) H 08/26/23 23:14 ALT 31 U/L (0-33) 08/26/23 23:14 Alkaline Phosphatase 165 U/L (35-105) H 08/26/23 23:14 Total Protein 7.0 g/dL (6.6-8.7) 08/26/23 23:14 Albumin 3.2 g/dL (3.5-5.2) L 08/26/23 23:14 Globulin 3.8 g/dL (1.3-4.6) 08/26/23 23:14 Lipase 29 U/L (13-60) 08/26/23 23:14 Urine Color Yellow (Yellow) 08/27/23 01:45 Urine Appearance Clear (CLEAR) 08/27/23 01:45 Urine pH 6.5 (5-7) 08/27/23 01:45 Ur Specific Hudson 1.010 (1.005-1.030) 08/27/23 01:45 Urine Protein 1+ (Negative) H 08/27/23 01:45 Urine Glucose (UA) Norm (Normal) 08/27/23 01:45 Urine Ketones 1+ (Negative) H 08/27/23 01:45 Urine Blood Neg (Negative) 08/27/23 01:45 Urine Nitrate Positive (Negative) H 08/27/23 01:45 Urine Bilirubin 1+ (Negative) H 08/27/23 01:45 Urine Urobilinogen 1 mg/dL (Negative) H 08/27/23 01:45 Ur Leukocyte Esterase 1+ (Negative) H 08/27/23 01:45 Urine RBC 0-4 /hpf (0-2) H 08/27/23 01:45 Urine WBC 15-25 /hpf (0-5) H 08/27/23 01:45 Ur Squamous Epith Cells 5-10 /hpf (0-5) H 08/27/23 01:45 Amorphous Sediment 1+ /hpf 08/27/23 01:45 Urine Bacteria Trace /hpf (NONE) 08/27/23 01:45 Urine Mucus 3+ /hpf 08/27/23 01:45 Discharge Plan Discharge Patient Disposition: Home Clinical Impression: Urinary tract infection, Right flank pain Condition: Stable Prescriptions: New Macrodantin 100 mg capsule 100 mg PO Q12H 10 Days Qty: 20 0RF Rx Instructions: must administer with a meal/food Lidoderm 5 % adhesive patch,medicated 1 patch topical DAILY Qty: 30 0RF Rx Instructions: leave on most painful area for up to 12 hrs No Action calcium carbonate [Calcium 600] 600 mg calcium (1,500 mg) tablet 600 mg PO QDAY PRN (Reason: Heartburn) nystatin 100,000 unit/mL suspension 1 ml PO DAILY Qty: 60 0RF Rx Instructions: place a few drops on a Q-tip and daub at corners of mouth nystatin 100,000 unit/gram powder 1 applic TOPICAL BID PRN (Reason: itching) Qty: 30 2RF Patient Comments: patient states she has a perscription, but has never needed to take it doxepin 10 mg capsule 10 mg PO TID Qty: 270 0RF Ozempic 0.25 mg or 0.5 mg(2 mg/1.5 mL) pen injector 0.5 mg SUBCUT .weekly Qty: 4.5 0RF Rx Instructions: ON sun valsartan [Diovan] 80 mg tablet 80 mg PO DAILY Qty: 90 0RF zonisamide 50 mg capsule 50 mg PO BID Qty: 180 0RF gabapentin 300 mg capsule 300 mg PO Q8H Qty: 90 4RF prochlorperazine maleate [Compazine] 10 mg tablet 10 mg PO Q6H PRN (Reason: nausea and vomiting) Qty: 30 2RF lidocaine-prilocaine 2.5-2.5 % cream 1 applic topical ONCE Qty: 30 1RF Rx Instructions: apply to skin over port 30-60 minutes prior to port access. (DME) manual wheelchair See Rx Instructions .Route .MEDSUPPLY Qty: 1 0RF Rx Instructions: As directed venlafaxine [Effexor XR] 150 mg capsule,extended release 24hr 150 mg PO QAM Qty: 90 0RF metoprolol succinate [Toprol XL] 25 mg tablet extended release 24 hr 25 mg PO DAILY Qty: 90 0RF (DME) CPAP machine and supplies See Rx Instructions .Route .MEDSUPPLY Qty: 1 5RF Rx Instructions: As directed auto titrating cpap machine and supplies 8-20cm famotidine [Pepcid] 40 mg tablet 40 mg PO DAILY Qty: 90 0RF hydrocodone-acetaminophen 5-325 mg tablet 1 tab PO Q8H PRN (Reason: pain) Qty: 7 0RF Discharge Orders: Discharge ED (Routine); Ordered 08/27/23 Ordered By: Mor Santa Referrals: Negro Beckford, DIRECTOR NETWORK DEVELOPMENT-C [Primary Care Provider] - Patient Instructions: Urinary Tract Infection in Women (ED), Flank Pain (ED), Opioid Safety, Pain Management Activity Restrictions/Additional Instructions: Antibiotics as directed. You may use a Lidoderm patch as needed for pain. If this does not improve pain, you can take a pain pill you were prescribed earlier. Let your doctor know you were seen here with flank pain. They may wish to perform more testing. Otherwise let your doctor know to look for urine culture results in a couple of days. Return for worsening pain, fever despite 2-3 doses of antibiotics, vomiting liquids, other concerning symptoms. Stand Alone Forms: Work/School Release Coding Level of Care Code ED Hat Brim Curler for Cyndee Ashby
[2023-08-26 23:48] LABS: Basophils % 0.3 %; Eosinophils # 0.1 10^3/uL (0.0-0.8); Hematocrit 31.7 % (36-47); Lymphocytes # 1.1 10^3/uL (0.8-4.8); Lymphocytes % 9.9 %; Mean Corpuscular HGB Conc 31.2 g/dL (30-55); Mean Corpuscular Hemoglobin 28.5 pg (27-33); Mean Corpuscular Volume 91.4 fl (85-98); Mean Platelet Volume 10.6 fL (7.4-10.4); Monocytes # 1.2 10^3/uL (0.2-0.9); Monocytes % 10.5 %; Neutrophils # 8.87 10^3/uL (1.8-7.7); Neutrophils % 77.4 %; Nucleated Red Blood Cells % 0 %; Platelet Count 387 10^3/cmm (157-399); Red Blood Count 3.47 10^6/uL (3.85-5.65); Red Cell Distribution Width 15.5 % (12.1-15.1); White Blood Count 11.47 10^3/uL (3.29-11.43)
[2023-08-26 23:57] VITALS: RESP 16; O2SAT 98
[2023-08-27 00:08] LABS: Alanine Aminotransferase 31 U/L (0-33); Albumin Level 3.2 g/dL (3.5-5.2); Alkaline Phosphatase 165 U/L (35-105); Anion Gap 13.4 (5-19); Aspartate Amino Transferase 47 U/L (0-32); Blood Urea Nitrogen 20 mg/dL (6-20); Calcium 9.3 mg/dL (8.5-10.5); Carbon Dioxide 23 mmol/L (22-29); Chloride 104 mmol/L (98-107); Globulin 3.8 g/dL (1.3-4.6); Glomerular Filtration Rate 64.5 mL/min (90-130); Glucose 123 mg/dL (65-115); Lipase 29 U/L (13-60); Osmolality Calculated 286 mOsm/kg (285-295); Potassium 4.4 mmol/L (3.5-5.1); Sodium 136 mmol/L (136-145); Total Bilirubin 0.2 mg/dL (0.15-1.2)
[2023-08-27] MEDS: iohexol 350 mg/mL 500 mL Btl (per mL) IV (00:08)
--- NOTE | 2023-08-27 00:13 | ECG_ITS ---
[facility] Test Date: 2023-08-27 Pat Name: Cary Taylor Department: Room: Gender: Female Priming Powder Premix Blender: : 1965 Requested By: Clifford Hughes Order Number: [id number] Marci MD: Nish Paulino M.D. Measurements Intervals [place] Rate: 105 P: 55 [place]: 199 QRS: 41 QRSD: 91 T: 29 QT: 345 QTc: 457 Interpretive Statements SINUS TACHYCARDIA LOW QRS VOLTAGE IN PRECORDIAL LEADS [QRS DEFLECTION < 1.0 mV IN CHEST LEADS] NONSPECIFIC T-WAVE ABNORMALITY Compared to ECG 08/13/2023 02:36:01 Low QRS voltage now present T-wave abnormality now present Electronically Signed On 08-27-2023 9:54:50 WINDER TENDER by Nish Paulino M.D. [id number]
[2023-08-27 00:15] VITALS: BP 112/71; PULSE 109; RESP 16; O2SAT 94
[2023-08-27] MEDS: sodium chloride 0.9% 1,000 ML 999 ML IV (00:17)
[2023-08-27 01:31] VITALS: BP 95/58; PULSE 100; RESP 20; O2SAT 95
[2023-08-27 01:55] LABS: Add Urine Microscopic? YES; Bilirubin Urine 1+ (Negative); Blood Urine Neg (Negative); Glucose Urine UA Norm (Normal); Ketones Urine 1+ (Negative); Leukocyte Esterase Urine 1+ (Negative); Nitrate Urine Positive (Negative); Protein Urine 1+ (Negative); Urine Appearance Clear (CLEAR); Urine Color Yellow (Yellow); Urobilinogen Urine 1 mg/dL (Negative); pH Urine 6.5 (5-7)
[2023-08-27 01:57] LABS: Add Urine Culture? Yes; Amorphous Sediment Urine 1+ /hpf; Bacteria Urine TRACE /hpf; Mucus Urine 3+ /hpf; RBC Urine 0-4 /hpf (0-2); WBC Urine 15-25 /hpf (0-5)
[2023-08-27 02:43] VITALS: BP 102/77; PULSE 100; RESP 20; O2SAT 95
== END 2023-08-27 02:45 | disposition home or self-care (01) ==
PROVIDERS: Physician Assistant; Emergency Provider Emergency Medicine; PCP Nurse Practitioner
DX: N39.0 Urinary tract infection, site not specified (principal); Z85.3 Personal history of malignant neoplasm of breast; K43.9 Ventral hernia without obstruction or gangrene; Z87.891 Personal history of nicotine dependence; E11.9 Type 2 diabetes mellitus without complications; E78.5 Hyperlipidemia, unspecified; I10 Essential (primary) hypertension; Z85.05 Personal history of malignant neoplasm of liver; I26.99 Other pulmonary embolism without acute cor pulmonale
CPT/HCPCS: 71275; 74177; 80053; 81001; 83690; 85025; 87086; 93005; 99285; J7030; Q9967

== ENCOUNTER 2023-08-29 09:30 | Oncology outpatient (recurring) (ONCR) | payer MEDICAID, SELFPAY ==
[2023-08-23 09:49] VITALS: BP 121/77; PULSE 90; RESP 18; TEMP 36.8; O2SAT 97
[2023-08-23 10:06] LABS: Basophils % 0.7 %; Eosinophils # 0.1 10^3/uL (0.0-0.8); Hematocrit 31.5 % (36-47); Lymphocytes # 0.9 10^3/uL (0.8-4.8); Lymphocytes % 14.1 %; Mean Corpuscular HGB Conc 31.7 g/dL (30-55); Mean Corpuscular Volume 91.3 fl (85-98); Monocytes # 0.7 10^3/uL (0.2-0.9); Monocytes % 10.8 %; Neutrophils % 71.4 %; Nucleated Red Blood Cells % 0 %; Platelet Count 373 10^3/cmm (157-399); Red Blood Count 3.45 10^6/uL (3.85-5.65); Red Cell Distribution Width 15.5 % (12.1-15.1); White Blood Count 6.02 10^3/uL (3.29-11.43)
[2023-08-23 10:34] LABS: Alanine Aminotransferase 31 U/L (0-33); Albumin Level 3.2 g/dL (3.5-5.2); Alkaline Phosphatase 143 U/L (35-105); Aspartate Amino Transferase 39 U/L (0-32); Blood Urea Nitrogen 13 mg/dL (6-20); CA 125 32.2 U/mL (0-35); CA 15-3 56.8 U/mL (0-25); Calcium 9.5 mg/dL (8.5-10.5); Carbon Dioxide 25 mmol/L (22-29); Chloride 104 mmol/L (98-107); Globulin 3.9 g/dL (1.3-4.6); Glomerular Filtration Rate 86.2 mL/min (90-130); Glucose 105 mg/dL (65-115); Osmolality Calculated 282 mOsm/kg (285-295); Sodium 136 mmol/L (136-145); Total Bilirubin 0.2 mg/dL (0.15-1.2); Total Protein 7.1 g/dL (6.6-8.7)
[2023-08-24 14:39] LABS: CA 27.29 82 U/mL (<38)
[2023-08-29 10:09] LABS: Basophils % 0.5 %; Eosinophils # 0.1 10^3/uL (0.0-0.8); Hematocrit 29.8 % (36-47); Lymphocytes # 1.1 10^3/uL (0.8-4.8); Lymphocytes % 12.4 %; Mean Corpuscular HGB Conc 31.2 g/dL (30-55); Mean Corpuscular Hemoglobin 28.5 pg (27-33); Mean Corpuscular Volume 91.4 fl (85-98); Mean Platelet Volume 10.2 fL (7.4-10.4); Monocytes # 0.9 10^3/uL (0.2-0.9); Monocytes % 10.3 %; Neutrophils # 6.56 10^3/uL (1.8-7.7); Neutrophils % 74.9 %; Nucleated Red Blood Cells % 0 %; Platelet Count 319 10^3/cmm (157-399); Red Blood Count 3.26 10^6/uL (3.85-5.65); Red Cell Distribution Width 15.6 % (12.1-15.1); White Blood Count 8.76 10^3/uL (3.29-11.43)
[2023-08-29 10:25] LABS: Alanine Aminotransferase 26 U/L (0-33); Alkaline Phosphatase 160 U/L (35-105); Anion Gap 13.1 (5-19); Aspartate Amino Transferase 35 U/L (0-32); Blood Urea Nitrogen 19 mg/dL (6-20); Calcium 9.3 mg/dL (8.5-10.5); Carbon Dioxide 24 mmol/L (22-29); Chloride 103 mmol/L (98-107); Globulin 3.8 g/dL (1.3-4.6); Glomerular Filtration Rate 57.1 mL/min (90-130); Glucose 135 mg/dL (65-115); Osmolality Calculated 286 mOsm/kg (285-295); Potassium 4.1 mmol/L (3.5-5.1); Sodium 136 mmol/L (136-145); Total Bilirubin 0.2 mg/dL (0.15-1.2); Total Protein 6.8 g/dL (6.6-8.7)
[2023-08-29] MEDS: sodium chloride 0.9% 1,000 ML 999 ML IV (11:10)
[2023-08-29] MEDS: ondansetron 2 mg/ML SDV 2 mL 8 MG IVP (12:11)
[2023-08-29] MEDS: gemcitabine 1,700 MG in sodium chloride 0.9% (100 ml) 100 ML 289.42 MG IV (12:41)
[2023-08-29 13:45] VITALS: BP 122/78; PULSE 102; RESP 16; TEMP 37.1; O2SAT 97
== END 2023-09-17 23:59 | disposition home or self-care (01) ==
PROVIDERS: PCP Nurse Practitioner; Visit Provider Internal Medicine Medical Oncology
DX: Z51.0 Encounter for antineoplastic radiation therapy (principal); C79.31 Secondary malignant neoplasm of brain; C50.812 Malignant neoplasm of overlapping sites of left female breast; C79.51 Secondary malignant neoplasm of bone; M25.562 Pain in left knee; D70.1 Agranulocytosis secondary to cancer chemotherapy; Z79.899 Other long term (current) drug therapy; T45.1X5A Adverse effect of antineoplastic and immunosuppressive drugs, initial encounter; Z51.11 Encounter for antineoplastic chemotherapy
CPT/HCPCS: 36591; 80053; 85025; 86300; 86304; 96367; 96375; 96413; J1100; J1642; J2405; J7030; J9201

== ENCOUNTER 2023-09-03 12:32 | Observation (INO) | payer MEDICAID, SELFPAY ==
[2023-09-03] VITALS (8 sets, daily range): BP systolic 101–115; BP diastolic 60–85; PULSE 92–110; RESP 16–20; TEMP 36.5–37.3; O2SAT 92–97; BMI 27.4
--- NOTE | 2023-09-03 13:21 | XR_ITS ---
WS: [id number] Exam: XR chest 1V portable [id number] Date/Time of Exam: 09/03/2023 1:22 PM Reason For Exam: weak Comparison 02/01/2023. The lungs are fully inflated and clear. Normal cardiomediastinal silhouette. A right-sided Port-A-Cat h appears to end in the region of the cavoatrial junction. Bony structures are intact. No pleural eff usion. IMPRESSION: 1. No acute cardiopulmonary finding. 2. Right-sided Port-A-Cath in satisfactory location.
--- NOTE | 2023-09-03 13:21 | W.ED.WEAKNES ---
HPI - Weakness General: Chief complaint: Weakness Stated complaint: Gen Pain/ Body Aches Time Seen by Provider: 09/03/23 12:44 Source: patient and family Mode of arrival: EMS Limitations: no limitations History of Present Illness: Patient is a 58-year-old female with a history of terminal metastatic breast malignancy here for complaints of generalized weakness, chest, abdominal, and right leg pain. Patient recently underwent CT imaging which showed innumerable metastatic liver lesions, bony metastases, mediastinal lymph node involvement, as well as an over read later showing bilateral PEs. Was never placed on anti-coagulation. She is currently undergoing palliative treatment with Dr. Jeffers. Family states weakness is to the point where she cannot care for herself at home. Her elderly mother is her primary caregiver and cannot care for her either. Mother states she was just recently approved for [place] Medicaid. They currently have no home health services established. MD Complaint: generalized weakness Onset (ago): day(s) Duration: constant Location: generalized Severity: moderate Relieving factors: none Exacerbating factors: none Context: new medication (started palliative chemotherapy last week) Associated symptoms: Reports headache(s) and nausea; Denies chest pain, chills, melena, fever(s), syncope or vomiting Review of Systems Const: Reports: fatigue, malaise and daytime sleepiness; Denies: fever(s), chills or body aches Eyes: Denies: change in vision, blurry vision or photophobia Card: Denies: chest pain, palpitations, irregular heart rhythm, syncope or pre-syncope Resp: Reports: dyspnea and pain on inspiration; Denies: productive cough, non-productive cough, wheezing, change in phlegm color, hemoptysis or chest congestion GI: Reports: abdominal pain, nausea and constipation; Denies: vomiting, hematochezia or melena : Reports: other (decreased urine output ); Denies: flank pain or pelvic pain Musc: Reports: extremity pain (R LE); Denies: neck pain, back pain, extremity swelling or joint pain Skin/Breast: Denies: rash Neuro: Reports: headache(s) and difficulty walking; Denies: numbness in extremities or sensory changes PFSH ED PFSH: Medical History Abdominal wall hernia Atypical chest pain Breast cancer, left Breast cancer, left Chest pain Controlled diabetes mellitus with hyperglycemia, without long-term current use of insulin Dyslipidemia Dyslipidemia (high LDL; low HDL) Endometrial polyp Generalized anxiety disorder Hypertension Impacted cerumen of both ears CHANI on CPAP Ovarian cyst, left Palpitations (~10/2019) Port-A-Cath in place Postmenopausal bleeding Patient was counseled regarding postmenopausal bleeding is bleeding that occurs 12 or more months after the last menstrual period and accounts for 5% of all gynecologic office visits. While it is not always a symptom of cancer, the exclusion of endometrial hyperplasia and carcinoma is the babcock issue in the evaluation of patients with postmenopausal bleeding. The primary evaluation of postmenopausal women who present with abnormal uterine bleeding includes a medical history and a pelvic examination. Studies to evaluate, are a uterine biopsy, ultrasound, hysteroscopy or dilation and curettage, may be required. Treatment will depend on the cause. An office hysteroscopy was recommended. The patient was counseled regarding the procedure. The office hysteroscopy showed an endometrial polyp on the posterior uterine wall. Surgical History History of arthroscopy of left shoulder History of bilateral cataract extraction History of cholecystectomy History of detached retina repair Left eye History of elbow surgery History of lumpectomy of left breast Hx of hernia repair S/P arthroscopic surgery of left knee Status post hysteroscopic polypectomy Family History Father Heart disease Cancer Hyperlipidemia Hypertension Mother Heart disease Thyroid disease Hyperlipidemia Hypertension Grandfather Cancer Maternal--prostate cancer Brother Stroke Unknown No problems noted. Sister Diabetes Hyperlipidemia Hypertension Brother Diabetes Hyperlipidemia Hypertension Grandmother Diabetes maternal Denies family history of Colon cancer Ovarian cancer Clotting disorder Breast cancer Anesthesia complication Bleeding disorder Uterine cancer Social History Smoking and tobacco/nicotine status: former use of tobacco/nicotine Quit status (tobacco/nicotine): has quit using Year quit tobacco: 2004 Former quit date comment: Smoked for 30 + years Second hand smoke exposure: No Alcohol intake: never Substance/Drug Use: never Adopted: No Caregiver/support person: No Lives independently: Yes Housing: House Marital status: service: No Current occupational status: employed Current occupation: [employer] Do you think of yourself as: Straight/Heterosexual Current gender identity: Female Physical Exam Const: COMMON NORMALS: patient oriented x3, no limitations, alert and well nourished GENERAL APPEARANCE: cooperative NUTRITIONAL APPEARANCE: overweight ORIENTATION/CONSCIOUSNESS: Yes awake, Yes oriented to person, Yes oriented to place and Yes oriented to time OTHER: patient is ill, weak, and pale appearing HENMT: COMMON NORMALS: normocephalic and atraumatic HEAD & SCALP: normal to inspection, normocephalic and atraumatic FACE & SINUS: normal facial exam Neck/C-Spine: COMMON NORMALS: full ROM, no lymphadenopathy, supple and no meningeal signs Chest: COMMONS NORMALS: normal inspection of the chest Resp: COMMON NORMALS: normal respiratory effort and clear to auscultation bilaterally AUSCULTATION: clear to auscultation bilaterally Cardio: COMMON NORMALS: regular rate and regular rhythm RATE: regular rate RHYTHM: regular rhythm GI: COMMON NORMALS: Normal to inspection, nondistended, normoactive bowel sounds present, Soft to palpation, No hepatosplenomegaly present and no masses INSPECTION: Yes normal to inspection AUSCULTATION: Yes normoactive bowel sounds PALPATION: Yes Soft to palpation, Yes Tenderness to palpation present (GI), No Guarding due to palpation present (GI), No Rigid due to palpation and Yes No hepatosplenomegaly present RECTAL EXAM: fecal impaction and heme negative stool : COMMON NORMALS: Yes no CVA tenderness BLADDER/KIDNEY EXAM: Yes no CVA tenderness Back/Pelvis: COMMON NORMALS: no CVA tenderness, thoracic and lumbar spine normal to inspection and no thoracic nor lumbar tenderness Extremity: COMMON NORMALS: normal to inspection and capillary refill normal NARRATIVE EXTREMITY EXAM: R calf tenderness GENERAL: Yes normal exam except as noted Neuro: AUDI COMA SCALE: document GCS findings [place] coma scale eye opening: Spontaneous [place] coma scale verbal response: Orientated [place] coma scale motor response: Obey commands Audi coma scale total score: 15 COMMON NORMALS: patient oriented x3, moves all extremities, no focal motor deficits and no sensory deficits noted SENSORIUM/ORIENTATION: Yes alert, Yes oriented to person, Yes oriented to place and Yes oriented to time MENINGEAL SIGNS: Yes no meningeal signs Skin: COMMON NORMALS: no rashes or lesions noted GENERAL SKIN EXAM: no rashes or lesions noted Course Vital Signs: Vital signs: Vital Signs Temperature 98.8 F 09/03/23 12:35 Pulse Rate 99 09/03/23 16:20 Blood Pressure 102/60 11/13/23 16:20 Pulse Oximetry 97 09/03/23 16:20 Oxygen Delivery Me thod Room Air 09/03/23 16:20 MDM - Weakness Medical Decision Making Patient is a 58-year-old female with a history of terminal malignancy currently undergoing palliative chemotherapy here for complaints of weakness and pain. Vital signs here have been stable. Blood work showing a hemoglobin of 8.2. She has slowly trended downward over the past 2 months. Hemoccult was performed here and negative. Her chemistry showing minor elevations to her BUN/Cr. She has nonspecific elevations to her liver enzymes most likely consistent with her innumerable liver mets. She has a normal tbili. UA looking infected-will culture, blood cultures, lactate, start on antibiotics. Her CXR is normal. Repeat CT imaging not obtained as she just had CT chest, abdomen, pelvis performed 5 days ago. She has got known right pulmonary emboli with no evidence of right heart strain. She did present today complaining of right lower extremity pain so ultrasound was obtained which does confirm a DVT due to her popliteal and peroneal trunk most likely the source of her pulmonary emboli. At this point patient cannot care for herself at home. Her elderly mother who is her primary care provider cannot continue to care for her in this condition either. Patient and family do not want her going to a skilled nursing. They are not to the point where they are ready to discuss hospice. They are hoping we can admit patient and get her set up with home health services and eventually she can go home. I spoke to Dr. Olguin who is graciously willing to admit patient. He recommended holding off on anticoagulation at this time. I spoke to Dr. Morejon in regards to case and he will write admit orders. Lab Data 09/03/23 14:23 09/03/23 14:23 Laboratory Results WBC 4.71 10^3/uL (3.29-11.43) 09/03/23 14: RBC 2.91 10^6/uL (3.85-5.65) L 09/03/23 14:23 Hgb 8.20 g/dL (11.27-16.99) L 09/03/23 14: Hct 26.6 % (36-47) L 09/03/23 14:23 MCV 91.4 fl (85-98) 09/03/23 14: MCH 28.2 pg (27-33) 09/03/23 14: MCHC 30.8 g/dL (30-55) 09/03/23 14: RDW 15.4 % (12.1-15.1) H 09/03/23 14:23 Plt Count 234 10^3/cmm (157-399) 09/03/23 14: MPV 9.7 fL (7.4-10.4) 09/03/23 14: Neut % (Auto) 77.6 % 09/03/23 14:23 Lymph % (Auto) 12.5 % 09/03/23 14: [place] % (Auto) 7.4 % 09/03/23 14: Eos % (Auto) 1.3 % 09/03/23 14: Baso % (Auto) 0.4 % 09/03/23 14: Neut # (Auto) 3.65 10^3/uL (1.8-7.7) 09/03/23 14: Lymph # (Auto) 0.6 10^3/uL (0.8-4.8) L 09/03/23 14: [place] # (Auto) 0.4 10^3/uL (0.2-0.9) 09/03/23 14: Eos # (Auto) 0.1 10^3/uL (0.0-0.8) 09/03/23 14: Baso # (Auto) 0.0 10^3/uL (0.0-0.1) 09/03/23 14: Nucleated RBC % (auto) 0 % 09/03/23 14: Nucleated RBCs # 0.0 /100WBC 09/03/23 14: PT 15.30 SECONDS (12.1-14.9) H 09/03/23 14: INR 1.17 (0.8-1.2) 09/03/23 14: APTT 38.1 SECONDS (23.9-36.7) H 09/03/23 14:23 Sodium 135 mmol/L (136-145) L 09/03/23 14: Potassium 4.2 mmol/L (3.5-5.1) 09/03/23 14:23 Chloride 102 mmol/L (98-107) 09/03/23 14:23 Carbon Dioxide 22 mmol/L (22-29) 09/03/23 14:23 Anion Gap 15.2 (5-19) 09/03/23 14:23 BUN 40 mg/dL (6-20) H 09/03/23 14:23 Creatinine 1.2 mg/dL (0.5-0.9) H 09/03/23 14: GFR Calculation 46.1 mL/min (90-130) L 09/03/23 14: Glucose 107 mg/dL (65-115) 09/03/23 14: Calculated Osmolality 290 mOsm/kg (285-295) 09/03/23 14: Calcium 9.1 mg/dL (8.5-10.5) 09/03/23 14: Total Bilirubin 0.4 mg/dL (0.15-1.2) 09/03/23 14: AST 61 U/L (0-32) H 09/03/23 14:23 ALT 45 U/L (0-33) H 09/03/23 14:23 Alkaline Phosphatase 195 U/L (35-105) H 09/03/23 14:23 Total Protein 6.7 g/dL (6.6-8.7) 09/03/23 14: Albumin 2.6 g/dL (3.5-5.2) L 09/03/23 14: Globulin 4.1 g/dL (1.3-4.6) 09/03/23 14: Urine Color Dark yellow (Yellow) 09/03/23 16:00 Urine Appearance Cloudy (CLEAR) A 09/03/23 16:00 Urine pH 5 (5-7) 09/03/23 16:00 Ur Specific [place] 1.025 (1.005-1.030) 09/03/23 16:00 Urine Protein 1+ (Negative) H 09/03/23 16:00 Urine Glucose (UA) Norm (Normal) 09/03/23 16:00 Urine Ketones 1+ (Negative) H 09/03/23 16:00 Urine Blood Neg (Negative) 09/03/23 16:00 Urine Nitrate Positive (Negative) H 09/03/23 16:00 Urine Bilirubin 2+ (Negative) H 09/03/23 16:00 Urine Urobilinogen 4+ mg/dL (Negative) H 09/03/23 16:00 Ur Leukocyte Esterase Trace (Negative) H 09/03/23 16:00 Urine RBC 0-4 /hpf (0-2) H 09/03/23 16:00 Urine WBC 5-10 /hpf (0-5) H 09/03/23 16:00 Ur Squamous Epith Cells 5-10 /hpf (0-5) H 09/03/23 16:00 Calcium Oxalate Crystal 5-10 /hpf H 09/03/23 16:00 Amorphous Sediment Not Reportable 09/03/23 16:00 Urine Bacteria 2+ /hpf (NONE) H 09/03/23 16:00 All radiology interpretation(s) finalized by discharge Discharge Plan Discharge Patient Disposition: Admitted As Inpatient Clinical Impression: Metastatic cancer, Anemia, Weakness, Unable to care for self, Acute kidney injury Pulmonary emboli Qualifiers: Pulmonary embolism type: single subsegmental (without acute cor pulmonale) Qualified Code(s): I26.93 - Single subsegmental pulmonary embolism without acute cor pulmonale Acute deep vein thrombosis (DVT) of right lower extremity Qualifiers: Affected thrombotic vein of extremity: popliteal Qualified Code(s): I82.431 - Acute embolism and thrombosis of right popliteal vein Urinary tract infection Qualifiers: Urinary tract infection type: acute cystitis Hematuria presence: with hematuria Qualified Code(s): N30.01 - Acute cystitis with hematuria Condition: Stable Coding Level of Care Code ED Asset Protection Associate for Cyndee Ashby
--- NOTE | 2023-09-03 13:36 | USCV_ITS ---
Cary Taylor Age: 58 Gender: F : 1965 Exam Date: 09/03/2023 13:52 Ordering Phys: Naomie Pryor Technologist: Jeff Ariza [place]am Location[place] [facility] [place]: rt leg pain PROCEDURES: Venous duplex imaging was performed in only the right lower extremity. The following venous structures were evaluated: common femoral vein, profunda vein, proximal portion of the greater saphenous vein, superficial femoral vein, and the popliteal vein. In addition, the posterior tibial and peroneal trunk were evaluated. FINDINGS: Dvt rt popletial and rt perineal occluding CONCLUSIONS Occlusive DVT Right popliteal and peroneal Remainder patent. Message left for Naomie CRESPO at 345pm Herman Parikh MD (Electronically Signed) Final Date: 03 September 2023 15:49 S
[2023-09-03 14:31] LABS: Basophils % 0.4 %; Eosinophils # 0.1 10^3/uL (0.0-0.8); Eosinophils % 1.3 %; Hematocrit 26.6 % (36-47); Lymphocytes # 0.6 10^3/uL (0.8-4.8); Lymphocytes % 12.5 %; Mean Corpuscular HGB Conc 30.8 g/dL (30-55); Mean Corpuscular Hemoglobin 28.2 pg (27-33); Mean Corpuscular Volume 91.4 fl (85-98); Mean Platelet Volume 9.7 fL (7.4-10.4); Monocytes # 0.4 10^3/uL (0.2-0.9); Monocytes % 7.4 %; Neutrophils # 3.65 10^3/uL (1.8-7.7); Neutrophils % 77.6 %; Nucleated Red Blood Cells % 0 %; Platelet Count 234 10^3/cmm (157-399); Red Blood Count 2.91 10^6/uL (3.85-5.65); Red Cell Distribution Width 15.4 % (12.1-15.1); White Blood Count 4.71 10^3/uL (3.29-11.43)
[2023-09-03] MEDS: morphine 4 mg/mL SDV 1 mL IVP (14:33)
[2023-09-03] MEDS: ondansetron 2 mg/ML SDV 2 mL 4 MG IVP (14:33)
--- NOTE | 2023-09-03 14:47 | ECG_ITS ---
[facility] Test Date: 2023-09-03 Pat Name: Cary Taylor Department: Room: Gender: Female Photo Mask Inspector: : 1965 Requested By: Naomie Pryor Order Number: [id number] Marci MD: Aurora Thomas M.D. Measurements Intervals [place] Rate: 96 P: 60 AL: 188 QRS: 46 QRSD: 96 T: 39 QT: 348 QTc: 440 Interpretive Statements SINUS RHYTHM Compared to ECG 08/27/2023 00:16:55 Sinus tachycardia no longer present T-wave abnormality no longer present Electronically Signed On 09-04-2023 1:51:58 PHOTOGRAPHY COORDINATOR by Aurora Thomas M.D. [id number]
[2023-09-03 14:51] LABS: Alanine Aminotransferase 45 U/L (0-33); Albumin Level 2.6 g/dL (3.5-5.2); Alkaline Phosphatase 195 U/L (35-105); Anion Gap 15.2 (5-19); Aspartate Amino Transferase 61 U/L (0-32); Blood Urea Nitrogen 40 mg/dL (6-20); Calcium 9.1 mg/dL (8.5-10.5); Carbon Dioxide 22 mmol/L (22-29); Chloride 102 mmol/L (98-107); Globulin 4.1 g/dL (1.3-4.6); Glomerular Filtration Rate 46.1 mL/min (90-130); Glucose 107 mg/dL (65-115); Osmolality Calculated 290 mOsm/kg (285-295); Potassium 4.2 mmol/L (3.5-5.1); Sodium 135 mmol/L (136-145); Total Bilirubin 0.4 mg/dL (0.15-1.2); Total Protein 6.7 g/dL (6.6-8.7)
[2023-09-03] MEDS: sodium chloride 0.9% 1,000 ML 999 ML IV (15:49)
[2023-09-03 16:19] LABS: INR 1.17 (0.8-1.2)
[2023-09-03 16:20] LABS: Partial Thromboplastin Time 38.1 SECONDS (23.9-36.7)
[2023-09-03 16:26] LABS: Add Urine Microscopic? YES; Bacteria Urine 2+ /hpf; Bilirubin Urine 2+ (Negative); Blood Urine Neg (Negative); Glucose Urine UA Norm (Normal); Ketones Urine 1+ (Negative); Leukocyte Esterase Urine Trace (Negative); Nitrate Urine Positive (Negative); Protein Urine 1+ (Negative); RBC Urine 0-4 /hpf (0-2); Specific Gravity, Urine 1.025 (1.005-1.030); Urine Appearance Cloudy (CLEAR); Urine Color Dark Yellow (Yellow); Urobilinogen Urine 4+ mg/dL (Negative); pH Urine 5 (5-7)
[2023-09-03 16:37] LABS: Troponin(5th) Baseline 7 ng/L (0-10)
[2023-09-03 16:55] LABS: NT Pro B Type Natriuretic Pept 82 pg/mL (0-125)
[2023-09-03] MEDS: cefTRIAXone 1,000 MG in sodium chloride 0.9% (plus) 50 ML 100 MG IV (16:56)
[2023-09-03 17:02] LABS: Troponin 5 2HR 6.84 ng/L (0-10); Troponin 5 2HR Delta -0.16 ABS# (0-10)
--- NOTE | 2023-09-03 17:21 | P.HP_ITS ---
Providers/Chief Complaint Admitting Physician: Vadim Olguin MD Primary Care Provider: ETHAN Branham-C Chief Complaint: Gen Pain/ Body Aches History of Present Illness Cary Taylor is a 58 year old female with history of stage IV breast cancer, at baseline not very active, last chemotherapy session was last , presented for generalized weakness. Patient is accompanied with her family, patient is drowsy and fatigued most of the information has been taken from the family They are stating that at baseline her mentation is not optimal she remains confu sed most of the time with lucid interval which could last up to few hours. Patient is denying fever, productive cough, diarrhea, blood in stool. In the ER she has been diagnosed with UTI and anemia and right leg DVT Review of Systems Const: Reports: chills and body aches; Denies: fever(s) Eyes: Denies: change in vision ENMT: Denies: throat pain Card: Reports: swelling of feet/ankles Resp: Reports: dyspnea GI: Denies: abdominal pain : Denies: flank pain Musc: Reports: back pain, extremity pain and extremity swelling Medications/Allergies Home Medications Medication Instructions Recorded Confirmed Last Taken Type calcium carbonate 600 mg calcium 600 mg PO QDAY PRN Heartburn 11/12/19 09/03/23 09/03/23 History (1,500 mg) tablet (Calcium) nystatin 100,000 unit/gram topical 1 applic topical BID PRN itching 05/10/22 09/03/23 12/03/22 Rx powder #30 grams gabapentin 300 mg capsule 300 mg PO Q8H #90 caps 04/30/23 09/03/23 09/03/23 Rx doxepin 10 mg capsule 10 mg PO TID #270 caps 05/08/23 09/03/23 09/03/23 Rx valsartan 80 mg tablet (Diovan) 80 mg PO DAILY #90 tabs 05/08/23 09/03/23 09/03/23 Rx zonisamide 50 mg capsule 50 mg PO BID #180 caps 05/08/23 09/03/23 Unknown Rx manual wheelchair #1 ea 07/18/23 09/03/23 Unknown Rx metoprolol succinate 25 mg 25 mg PO DAILY #90 tabs 07/25/23 09/03/23 09/03/23 Rx tablet,extended release 24 hr (Toprol XL) venlafaxine 150 mg 150 mg PO QAM #90 caps 07/25/23 09/03/23 09/03/23 Rx capsule,extended release 24 hr (Effexor XR) CPAP machine and supplies #1 ea 08/01/23 09/03/23 Unknown Rx hydrocodone 5 mg-acetaminophen 325 1 tab PO Q8H PRN pain #7 tabs 08/13/23 09/03/23 Unknown Rx mg tablet famotidine 40 mg tablet (Pepcid) 40 mg PO DAILY #90 tabs 08/26/23 09/03/23 09/03/23 Rx lidocaine 5 % topical patch 1 patch topical DAILY #30 ea 08/27/23 09/03/23 09/03/23 Rx (Lidoderm) nitrofurantoin macrocrystal 100 mg 100 mg PO Q12H 10 days #20 caps 08/27/23 09/03/23 09/03/23 Rx capsule (Macrodantin) lidocaine-prilocaine 2.5 %-2.5 % 1 applic topical .COMPLEX 09/03/23 09/03/23 Unknown History topical cream semaglutide 0.25 mg or 0.5 mg (2 0.5 mg SUBCUT Q7D 09/03/23 09/03/23 Unknown History mg/3 mL) subcutaneous pen injector (Ozempic) Allergies Allergy/AdvReac Type Severity Reaction Status Date / Time naproxen [From Naprosyn] Allergy Hives, Verified 09/03/23 12:44 difficulty breathing PFSH Acute PFSH: Medical History Abdominal wall hernia Atypical chest pain Breast cancer, left Breast cancer, left Chest pain Controlled diabetes mellitus with hyperglycemia, without long-term current use of insulin Dyslipidemia Dyslipidemia (high LDL; low HDL) Endometrial polyp Generalized anxiety disorder Hypertension Impacted cerumen of both ears CHANI on CPAP Ovarian cyst, left Palpitations (~10/2019) Port-A-Cath in place Postmenopausal bleeding Patient was counseled regarding postmenopausal bleeding is bleeding that occurs 12 or more months after the last menstrual period and accounts for 5% of all gynecologic office visits. While it is not always a symptom of cancer, the exclusion of endometrial hyperplasia and carcinoma is the babcock issue in the evaluation of patients with postmenopausal bleeding. The primary evaluation of postmenopausal women who present with abnormal uterine bleeding includes a medical history and a pelvic examination. Studies to evaluate, are a uterine biopsy, ultrasound, hysteroscopy or dilation and curettage, may be required. Treatment will depend on the cause. An office hysteroscopy was recommended. The patient was counseled regarding the procedure. The office hysteroscopy showed an endometrial polyp on the posterior uterine wall. Surgical History History of arthroscopy of left shoulder History of bilateral cataract extraction History of cholecystectomy History of detached retina repair Left eye History of elbow surgery History of lumpectomy of left breast Hx of hernia repair S/P arthroscopic surgery of left knee Status post hysteroscopic polypectomy Family History Father Heart disease Cancer Hyperlipidemia Hypertension Mother Heart disease Thyroid disease Hyperlipidemia Hypertension Grandfather Cancer Maternal--prostate cancer Brother Stroke Unknown No problems noted. Sister Diabetes Hyperlipidemia Hypertension Brother Diabetes Hyperlipidemia Hypertension Grandmother Diabetes maternal Denies family history of Colon cancer Ovarian cancer Clotting disorder Breast cancer Anesthesia complication Bleeding disorder Uterine cancer Social History Smoking and tobacco/nicotine status: former use of tobacco/nicotine Quit status (tobacco/nicotine): has quit using Year quit tobacco: 2004 Former quit date comment: Smoked for 30 + years Second hand smoke exposure: No Alcohol intake: never Substance/Drug Use: never Adopted: No Caregiver/support person: No Lives independently: Yes Housing: House Marital status: service: No Current occupational status: employed Current occupation: [employer] Do you think of yourself as: Straight/Heterosexual Current gender identity: Female Vitals/I&O/Wt Last Vital Signs Temp 98.7 F 09/03/23 16:59 Pulse 96 09/03/23 16:59 BP 111/73 09/03/23 16:59 Pulse Ox 93 09/03/23 16:59 O2 Del Method Room Air 09/03/23 16:59 09/03/23 09/03/23 09/03/23 06:59 14:59 22:59 Intake Total 1000 / 1000 Balance 1000 / 1000 Weight last 48 hrs Weight 68.039 kg Physical Exam Narrative: Patient is able to answer my questions appropriately Right leg not able to lift against gravity however she is below her toes, left leg she is able to lift against gravity Able to follow commands Drowsy S1, S2 Currently on room air Lymphedema of legs Abdomen distended nontender able to move upper extremities Data 09/03/23 14:23 09/03/23 14:23 A&P Assessment and plan (1) Metastatic cancer: (2) Anemia: (3) Weakness: (4) Unable to care for self: (5) Acute kidney injury: (6) Acute deep vein thrombosis (DVT) of right lower extremity: Qualifiers: Affected thrombotic vein of extremity: popliteal Qualified Code(s): I82.431 - Acute embolism and thrombosis of right popliteal vein (7) Urinary tract infection: Qualifiers: Hematuria presence: with hematuria Urinary tract infection type: acute cystitis Qualified Code(s): N30.01 - Acute cystitis with hematuria (8) Breast cancer metastasized to liver: (9) Breast cancer metastasized to brain: (10) Breast cancer metastasized to bone: (11) Dehydration: Plan Generalized weakness Failure to thrive Dehydration Acute on chronic anemia No active signs of GI bleed . Start IV fluids and antibiotics for possible UTI I will start patient on therapeutic Lovenox Patient and family agreeable for anticoagulation and monitor hemoglobin for now I do suspect chemotherapy related bone marrow suppression no active signs of GI bleed Check FOBT Family was asking if we can get hospice referral and home health services I told him about hospice services and what entails home health They will further decide in the morning after discussion with the rest of the family members Patient is full code for now She does have a living will they will bring in the documents tomorrow We will request physical therapy No active signs of stroke Her appetite is poor start IV fluids Attestations Medical Necessity Statement*: Anticipating discharge within 48 hours Diagnoses Metastatic cancer C79.9 Anemia D64.9 Weakness R53.1 Unable to care for self Z78.9 Acute kidney injury N17.9 Acute deep vein thrombosis (DVT) of right lower extremity I82.431 Affected thrombotic vein of extremity: popliteal Urinary tract infection N30.01 Hematuria presence: with hematuria Urinary tract infection type: acute cystitis Breast cancer metastasized to liver C50.919; C78.7 Breast cancer metastasized to brain C50.919; C79.31 Breast cancer metastasized to bone C50.919; C79.51 Dehydration E86.0
--- NOTE | 2023-09-03 18:06 | ECG_ITS ---
[facility] Test Date: 2023-09-03 Pat Name: Cary Taylor Department: Room: 252 Gender: Female Crib Pad Maker: : 1965 Requested By: Naomie Pryor Order Number: [id number] Marci MD: Aurora Thomas M.D. Measurements Intervals [place] Rate: 96 P: 35 DE: 216 QRS: 7 QRSD: 97 T: 5 QT: 336 QTc: 426 Interpretive Statements SINUS RHYTHM WITH FIRST DEGREE AV BLOCK Compared to ECG 09/03/2023 14:49:22 First degree AV block now present Electronically Signed On 09-03-2023 18:46:13 SHEARING SHED HAND by Aurora Thomas M.D. [id number]
[2023-09-03] MEDS: sodium chloride 0.9% 1,000 ML 75 ML IV (18:16)
[2023-09-03 18:48] LABS: Vitamin B12 1166 pg/mL (232-1245)
[2023-09-03 19:00] LABS: INR 1.15 (0.8-1.2)
[2023-09-03 20:20] LABS: Estmated Average Glucose 105; Hemoglobin A1C 5.3 % (4.0-6.0)
[2023-09-03 20:54] LABS: Glucose Point of Care 109 mg/dL (70-110)
[2023-09-03 21:06] LABS: Troponin 5 6HR 7.86 ng/L (0-10); Troponin 5 6HR Delta 0.86 ng/L (0-12)
[2023-09-03] MEDS: enoxaparin 100 mg/mL Syringe 70 MG SUBCUT (21:35)
--- NOTE | 2023-09-03 22:06 | ECG_ITS ---
[facility] Test Date: 2023-09-03 Pat Name: Cary Taylor Department: Room: 252 Gender: Female Graphic Art Designer: : 1965 Requested By: Naomie Pryor Order Number: [id number] Marci MD: Susan Chaudhary M.D. Measurements Intervals [place] Rate: 106 P: 54 [place]: 204 QRS: 46 QRSD: 96 T: 30 QT: 335 QTc: 445 Interpretive Statements SINUS TACHYCARDIA NONSPECIFIC T-WAVE ABNORMALITY ABNORMAL RHYTHM ECG Compared to ECG 09/03/2023 18:08:15 T-wave abnormality now present Sinus rhythm no longer present First degree AV block no longer present Electronically Signed On 09-04-2023 23:23:23 METAL TILE LATHER by Susan Chaudhary M.D. [id number]
[2023-09-04] VITALS (15 sets, daily range): BP systolic 104–155; BP diastolic 62–87; PULSE 88–106; RESP 15–19; TEMP 36.4–37.8; O2SAT 91–98
[2023-09-04 04:59] LABS: Basophils % 0.6 %; Eosinophils # 0.1 10^3/uL (0.0-0.8); Eosinophils % 1.6 %; Hematocrit 25.3 % (36-47); Lymphocytes # 0.5 10^3/uL (0.8-4.8); Lymphocytes % 16.5 %; Mean Corpuscular HGB Conc 30.4 g/dL (30-55); Mean Corpuscular Hemoglobin 28.3 pg (27-33); Mean Platelet Volume 10.1 fL (7.4-10.4); Monocytes # 0.4 10^3/uL (0.2-0.9); Monocytes % 13.2 %; Neutrophils # 2.09 10^3/uL (1.8-7.7); Neutrophils % 67.5 %; Nucleated Red Blood Cells % 0 %; Platelet Count 196 10^3/cmm (157-399); Red Blood Count 2.72 10^6/uL (3.85-5.65); Red Cell Distribution Width 15.3 % (12.1-15.1)
[2023-09-04 05:24] LABS: Anion Gap 14.2 (5-19); Blood Urea Nitrogen 29 mg/dL (6-20); Carbon Dioxide 21 mmol/L (22-29); Chloride 106 mmol/L (98-107); Glomerular Filtration Rate 73.7 mL/min (90-130); Glucose 100 mg/dL (65-115); Magnesium 2.1 mg/dL (1.7-2.3); Osmolality Calculated 290 mOsm/kg (285-295); Phosphorus 2.7 mg/dL (2.5-4.5); Potassium 4.2 mmol/L (3.5-5.1); Sodium 137 mmol/L (136-145)
[2023-09-04] MEDS: sodium chloride 0.9% 1,000 ML 75 ML IV (06:19)
[2023-09-04 06:37] LABS: Glucose Point of Care 104 mg/dL (70-110)
--- NOTE | 2023-09-04 08:49 | PC.CHAP ---
Pastoral Care Encounter/Spiritual Assessment Type of Contact [] Declined chain person visit [] Patient/Family/Request visit [] Outpatient visit [] Follow-up visit [] Physician referral [] Code/Alert [x] Routine visit [] Staff referral [] Actively dying [] Patient sleeping [] Family support [] [] Out of room [] Palliative care [] [] Receiving care in room [] Pre-surgical visit [] Trauma [] Long length of stay [] ICU visit [] Other: Relational/Emotional Strength [x] Patient feels connected with others/family/visitors/staff [x] Distress [] Loneliness/isolation [] Abandonment Spirituality of Patient [] Person of Yissel [] Attends Episcopalian of their Yissel [x] Believes in Prayer [] Reads Bible or Voodoo materials [] There are Spiritual issues to be addressed Pipe Finisher Interventions [x] Prayer [x] Active listening [x] Non-anxious presence []x Spiritual/emotional support [] Crisis/trauma care [] Spiritual counseling [] Bereavement support [] Provided bereavement packet [] Provided Bible/devotional materials [] Provided toy/stuffed animal, coloring book to patient or family member [] Provided Communion [] Anointing/[place] [] Salvation [x] Completed spiritual assessment [] Other: Impact on Illness or Injury [] Angry [] Fearful [] Anxious [] Often cries [] Exhaustion [] Unable to work [] Unable to attend judaism [] Unable to walk/stand [] Unable to read [] Unable to drive [] Unable to eat/drink [] Unable to sleep [] Unable to be with family [] Patient intubated [] Other: Summary Time spent with patient 5 min
[2023-09-04] MEDS: metoprolol succinate ER (24 HR) 25 mg Tablet PO (09:28)
[2023-09-04] MEDS: cefTRIAXone 1,000 MG in sodium chloride 0.9% (plus) 50 ML 100 MG IV (09:29)
[2023-09-04] MEDS: enoxaparin 80 mg/0.8 mL Syringe 70 MG SUBCUT ×2 (09:38→22:12)
--- NOTE | 2023-09-04 10:15 | P.PN_ITS ---
Subjective Subjective: We will give her 1 unit PRBC My suspicion is related to bone marrow suppression from chemotherapy Hemoglobin 7.7 No active GI bleed Hemodynamically stable No significant drop in blood pressure however she has been tachycardic Vitals/I&O/Wt Last Vital Signs Temp 97.7 F 09/04/23 08:52 Pulse 106 H 09/04/23 08:52 Resp 19 H 09/04/23 08:52 BP 133/77 09/04/23 08:52 Pulse Ox 94 09/04/23 08:52 O2 Del Method Room Air 09/04/23 08:00 09/03/23 09/04/23 09/04/23 22:59 06:59 14:59 Intake Total 1050 / 1050 903.75 / 1953.75 170 / 170 Output Total 0 / 0 Balance 1050 / 1050 903.75 / 1953.75 170 / 170 Weight last 48 hrs Weight 68.039 kg Physical Exam Narrative: Patient is much more awake and alert GCS 15 Able to move her extremities Pleasant and cooperative GCS 15 S1, S2 Tachycardia Signs of dehydration improving Data 09/04/23 04:16 09/04/23 04:16 Micro: Microbiology 09/03/23 17:05 Blood Culture - Preliminary Blood SPECIMEN COLLECTED 09/03/23 17:13 Blood Culture - Preliminary Blood SPECIMEN COLLECTED A&P Assessment and plan (1) Dehydration: (2) Metastatic cancer: (3) Anemia: (4) Weakness: (5) Unable to care for self: (6) Acute kidney injury: (7) Pulmonary emboli: Qualifiers: Pulmonary embolism type: single subsegmental (without acute cor pulmonale) Qualified Code(s): I26.93 - Single subsegmental pulmonary embolism without acute cor pulmonale (8) Acute deep vein thrombosis (DVT) of right lower extremity: Qualifiers: Affected thrombotic vein of extremity: popliteal Qualified Code(s): I82.431 - Acute embolism and thrombosis of right popliteal vein (9) Urinary tract infection: Qualifiers: Hematuria presence: with hematuria Urinary tract infection type: acute cystitis Qualified Code(s): N30.01 - Acute cystitis with hematuria (10) Breast cancer metastasized to liver: (11) Breast cancer metastasized to brain: (12) Breast cancer metastasized to bone: Plan Hypoactive delirium related to dehydration UTI: Improved Pleasant and cooperative today Right leg DVT continue therapeutic Lovenox Bone marrow suppression related to chemotherapy We will give 1 unit PRBC We will do 1 more day of physical therapy Family requested hospice referrals casework manager updated Plan to discharge her by tomorrow Continue IV antibiotics She is full code for now Patient is retaining urine, will place Simon catheter Attestations Medical Necessity Statement*: Discharge tomorrow Diagnoses Dehydration E86.0 Metastatic cancer C79.9 Anemia D64.9 Weakness R53.1 Unable to care for self Z78.9 Acute kidney injury N17.9 Pulmonary emboli I26.93 Pulmonary embolism type: single subsegmental (without acute cor pulmonale) Acute deep vein thrombosis (DVT) of right lower extremity I82.431 Affected thrombotic vein of extremity: popliteal Urinary tract infection N30.01 Hematuria presence: with hematuria Urinary tract infection type: acute cystitis Breast cancer metastasized to liver C50.919; C78.7 Breast cancer metastasized to brain C50.919; C79.31 Breast cancer metastasized to bone C50.919; C79.51
[2023-09-04 11:30] LABS: Glucose Point of Care 102 mg/dL (70-110)
[2023-09-04] MEDS: HYDROcodone-acetaminophen 5-325 mg Tablet 1 TAB PO (15:08)
[2023-09-04 17:14] LABS: Glucose Point of Care 127 mg/dL (70-110)
[2023-09-04 19:30] LABS: Hematocrit 26.6 % (36-47)
[2023-09-04 20:38] LABS: Glucose Point of Care 117 mg/dL (70-110)
[2023-09-05] VITALS (8 sets, daily range): BP systolic 124–142; BP diastolic 80–90; PULSE 80–104; RESP 16–18; TEMP 36.8–37.2; O2SAT 93–96
[2023-09-05 04:55] LABS: Basophils % 0.4 %; Eosinophils % 0.4 %; Hematocrit 27.1 % (36-47); Lymphocytes # 0.6 10^3/uL (0.8-4.8); Lymphocytes % 11.9 %; Mean Corpuscular HGB Conc 31.7 g/dL (30-55); Mean Corpuscular Hemoglobin 28.4 pg (27-33); Mean Corpuscular Volume 89.4 fl (85-98); Mean Platelet Volume 9.8 fL (7.4-10.4); Monocytes # 0.7 10^3/uL (0.2-0.9); Monocytes % 13.5 %; Neutrophils # 3.62 10^3/uL (1.8-7.7); Neutrophils % 72.8 %; Nucleated Red Blood Cells % 0 %; Platelet Count 169 10^3/cmm (157-399); Red Blood Count 3.03 10^6/uL (3.85-5.65); Red Cell Distribution Width 16.7 % (12.1-15.1); White Blood Count 4.97 10^3/uL (3.29-11.43)
[2023-09-05 05:12] LABS: Blood Urea Nitrogen 18 mg/dL (6-20); Calcium 9.1 mg/dL (8.5-10.5); Carbon Dioxide 22 mmol/L (22-29); Chloride 105 mmol/L (98-107); Glomerular Filtration Rate 102.7 mL/min (90-130); Glucose 107 mg/dL (65-115); Osmolality Calculated 284 mOsm/kg (285-295); Sodium 136 mmol/L (136-145)
[2023-09-05 06:52] LABS: Glucose Point of Care 106 mg/dL (70-110)
[2023-09-05] MEDS: cefTRIAXone 1,000 MG in sodium chloride 0.9% (plus) 50 ML 100 MG IV (09:43)
[2023-09-05] MEDS: metoprolol succinate ER (24 HR) 25 mg Tablet PO (09:43)
[2023-09-05] MEDS: enoxaparin 80 mg/0.8 mL Syringe 70 MG SUBCUT ×2 (09:50→22:48)
--- NOTE | 2023-09-05 11:43 | PM.PN ---
Subjective Subjective: No bowel movement since admission Patient endorsing feeling better, as per our discussion with the family patient will be going on hospice tomorrow morning Denies Patient has been saturating well on room air Vitals/I&O/Wt Last Vital Signs Temp 98.2 F 09/05/23 08:20 Pulse 90 09/05/23 09:54 Resp 18 09/05/23 09:54 BP 135/90 09/05/23 08:20 Pulse Ox 94 09/05/23 09:54 O2 Del Method Room Air 09/05/23 09:54 09/04/23 09/05/23 09/05/23 22:59 06:59 14:59 Intake Total 1342.5 / 1752.5 120 / 120 Output Total 550 / 1130 225 / 1355 Balance 792.5 / 622.5 -225 / 397.5 120 / 120 Weight last 48 hrs Weight 68.039 kg Physical Exam Narrative: Signs of dehydration improving Awake and alert Abdomen soft Pleasant cooperative Currently on room air GCS [address] Urinary Catheter Management: Simon: Cath Placed During This Visit: yes Reason for Continuing Indwelling Catheter: Acute Urinary Retention or Obstruction Urinary Catheter Date of Insertion: 09/04/23 Urinary Catheter Time of Insertion: 11:18 Data 09/05/23 04:09 09/05/23 04:09 Micro: Microbiology 09/03/23 16:00 Urine Culture - Final Urine Catheterized 09/03/23 17:05 Blood Culture - Preliminary Blood NEGATIVE TO DATE 09/03/23 17:13 Blood Culture - Preliminary Blood A&P Assessment and plan (1) Dehydration: (2) Metastatic cancer: (3) Anemia: (4) Weakness: (5) Hospice care: Plan Discharge tomorrow on hospice Add lactulose for constipation Continue antibiotics for UTI Discontinue IV fluids Simon catheter will remain Attestations Medical Necessity Statement*: Discharge tomorrow Diagnoses Dehydration E86.0 Metastatic cancer C79.9 Anemia D64.9 Weakness R53.1 Hospice care Z51.5
[2023-09-05 11:47] LABS: Glucose Point of Care 114 mg/dL (70-110)
[2023-09-05] MEDS: lactulose oral liq 20 gm/30 mL UDC 30 GM PO (12:20)
[2023-09-05 17:19] LABS: Glucose Point of Care 115 mg/dL (70-110)
[2023-09-05] MEDS: morphine IR 15 mg Tablet PO (17:29)
[2023-09-05] MEDS: sennosides-docusate Tablet 1 TAB PO (17:30)
[2023-09-05] MEDS: ondansetron 2 mg/ML SDV 2 mL 4 MG IVP (19:07)
[2023-09-05] MEDS: Fleet Enema 133 mL Enema PR (20:53)
[2023-09-05 20:59] LABS: Glucose Point of Care 105 mg/dL (70-110)
[2023-09-06 00:11] VITALS: BP 140/80; PULSE 86; RESP 17; TEMP 37; O2SAT 96
[2023-09-06 04:56] LABS: Basophils % 0.2 %; Eosinophils # 0.1 10^3/uL (0.0-0.8); Hematocrit 28.8 % (36-47); Lymphocytes # 0.6 10^3/uL (0.8-4.8); Lymphocytes % 11.6 %; Mean Corpuscular HGB Conc 31.3 g/dL (30-55); Mean Corpuscular Hemoglobin 27.6 pg (27-33); Mean Corpuscular Volume 88.3 fl (85-98); Monocytes # 0.7 10^3/uL (0.2-0.9); Monocytes % 14.9 %; Neutrophils # 3.43 10^3/uL (1.8-7.7); Neutrophils % 69.9 %; Nucleated Red Blood Cells % 0.4 %; Platelet Count 166 10^3/cmm (157-399); Red Blood Count 3.26 10^6/uL (3.85-5.65); Red Cell Distribution Width 16.2 % (12.1-15.1); White Blood Count 4.91 10^3/uL (3.29-11.43)
[2023-09-06 05:00] VITALS: BP 119/75; PULSE 85; RESP 16; TEMP 37; O2SAT 96
[2023-09-06 06:36] LABS: Glucose Point of Care 107 mg/dL (70-110)
[2023-09-06 08:20] VITALS: BP 104/56; PULSE 84; RESP 16; TEMP 36.8; O2SAT 94
[2023-09-06 09:32] VITALS: PULSE 80; RESP 16; O2SAT 94
[2023-09-06] MEDS: cefTRIAXone 1,000 MG in sodium chloride 0.9% (plus) 50 ML 100 MG IV (09:32)
[2023-09-06] MEDS: enoxaparin 80 mg/0.8 mL Syringe 70 MG SUBCUT (09:32)
[2023-09-06] MEDS: metoprolol succinate ER (24 HR) 25 mg Tablet PO (09:32)
[2023-09-06] MEDS: sennosides-docusate Tablet 1 TAB PO (09:32)
--- NOTE | 2023-09-06 09:39 | P.DS_ITS ---
Discharge Providers Date of Admission: 09/03/23 16:39 Date of Discharge: September 06, 2023 Attending Provider at Admission: Vadim Olguin MD Attending Provider at Discharge: Vadim Olguin MD Primary Care Provider: GARRICK Branham Diagnoses at Discharge Discharge Diagnosis (1) Dehydration: Status: Acute (2) Metastatic cancer: Status: Acute (3) Anemia: Status: Acute (4) Weakness: Status: Acute (5) Unable to care for self: Status: Acute (6) Acute kidney injury: Status: Acute (7) Pulmonary emboli: Status: Acute Qualifiers: Pulmonary embolism type: single subsegmental (without acute cor pulmonale) Qualified Code(s): I26.93 - Single subsegmental pulmonary embolism without acute cor pulmonale (8) Acute deep vein thrombosis (DVT) of right lower extremity: Status: Acute Qualifiers: Affected thrombotic vein of extremity: popliteal Qualified Code(s): I82.431 - Acute embolism and thrombosis of right popliteal vein (9) Urinary tract infection: Status: Acute Qualifiers: Hematuria presence: with hematuria Urinary tract infection type: acute cystitis Qualified Code(s): N30.01 - Acute cystitis with hematuria (10) Breast cancer metastasized to liver: Status: Acute (11) Breast cancer metastasized to brain: Status: Acute (12) Breast cancer metastasized to bone: Status: Acute Reason for Visit Reason for Visit: Gen Pain/ Body Aches Hospital Course Hospital Course 58-year-old female with history of metastatic breast cancer presented to hospital for confusion and lethargy fatigue and lower extremity weakness, her mentation and weakness significantly improved with use of IV fluid hydration and ceftriaxone for UTI, she remained afebrile, no signs of meningitis, family is not able to take care of her at home, they were requesting hospice referral as well, last chemotherapy session was last she developed chemotherapy induced bone marrow suppression required 1 unit PRBC for anemia no active GI bleed noted, patient does have new right leg DVT for which she was started on therapeutic Lovenox, patient and family both wanted to continue anticoagulating agent for new DVT however when I discussed risk of bleeding with chances of falling because she is weak and lethargic requiring assistance family decided to not use anticoagulating agent at the time of discharge. Patient was retaining urine Simon cath was inserted during this admission. Family has decided to opt for hospice and take her home Patient will be given lactulose, bowel regimen for her constipation her p.o. intake has been poor which is also contributing. Patient is not complaining of abdominal pain. Physical Exam Narrative: Morbidly obese Awake and alert Short attention span Hemodynamically stable Signs of dehydration improving Nonpitting edema of the extremities S1, S2 variable Urinary Catheter Management: Simon: Cath Placed During This Visit: yes Reason for Continuing Indwelling Catheter: Acute Urinary Retention or Obstruction Urinary Catheter Date of Insertion: 09/04/23 Urinary Catheter Time of Insertion: 11:18 Discharge Data Studies Completed and Pending Completed Studies During Hospitalization Category Date Time Status XR chest 1V portable [id number] Urgent Exams 09/03/23 13:21 Completed US venous duplex lower extremity RT [CV venous duplex Ultrasound 09/03/23 1 3:36 [place] [id number]] Stat Pending at discharge Category Date Time Status Blood Culture Stat Lab 09/03/23 17:13 Results Urine Culture Stat Lab 09/03/23 16:00 Results Laboratory Results WBC 4.97 10^3/uL (3.29-11.43) 09/05/23 04:09 RBC 3.03 10^6/uL (3.85-5.65) L 09/05/23 04:09 Hgb 8.60 g/dL (11.27-16.99) L 09/05/23 04:09 Hct 27.1 % (36-47) L 09/05/23 04:09 MCV 89.4 fl (85-98) 09/05/23 04:09 MCH 28.4 pg (27-33) 09/05/23 04:09 MCHC 31.7 g/dL (30-55) 09/05/23 04:09 RDW 16.7 % (12.1-15.1) H 09/05/23 04:09 Plt Count 169 10^3/cmm (157-399) 09/05/23 04:09 MPV 9.8 fL (7.4-10.4) 09/05/23 04:09 Neut % (Auto) 72.8 % 09/05/23 04:09 Lymph % (Auto) 11.9 % 09/05/23 04:09 [place] % (Auto) 13.5 % 09/05/23 04:09 Eos % (Auto) 0.4 % 09/05/23 04:09 Baso % (Auto) 0.4 % 09/05/23 04:09 Neut # (Auto) 3.62 10^3/uL (1.8-7.7) 09/05/23 04:09 Lymph # (Auto) 0.6 10^3/uL (0.8-4.8) L 09/05/23 04:09 [place] # (Auto) 0.7 10^3/uL (0.2-0.9) 09/05/23 04:09 Eos # (Auto) 0.0 10^3/uL (0.0-0.8) 09/05/23 04:09 Baso # (Auto) 0.0 10^3/uL (0.0-0.1) 09/05/23 04:09 Nucleated RBC % (auto) 0 % 09/05/23 04:09 Nucleated RBCs # 0.0 /100WBC 09/05/23 04:09 PT 15.10 SECONDS (12.1-14.9) H 09/03/23 18:30 INR 1.15 (0.8-1.2) 09/03/23 18:30 APTT 34.0 SECONDS (23.9-36.7) 09/03/23 18:30 Sodium 136 mmol/L (136-145) 09/05/23 04:09 Potassium 4.0 mmol/L (3.5-5.1) 09/05/23 04:09 Chloride 105 mmol/L (98-107) 09/05/23 04:09 Carbon Dioxide 22 mmol/L (22-29) 09/05/23 04:09 Anion Gap 13.0 (5-19) 09/05/23 04:09 BUN 18 mg/dL (6-20) 09/05/23 04:09 Creatinine 0.6 mg/dL (0.5-0.9) 09/05/23 04:09 GFR Calculation 102.7 mL/min (90-130) 09/05/23 04:09 Glucose 107 mg/dL (65-115) 09/05/23 04:09 POC Glucose 117 mg/dL (70-110) H 09/04/23 20:28 Estimat Average Glucose 105 09/03/23 14:23 Hemoglobin A1c 5.3 % (4.0-6.0) 09/03/23 14: Calculated Osmolality 284 mOsm/kg (285-295) L 09/05/23 04:09 Lactic Acid 1.0 mmol/L (0.5-2.2) 09/03/23 17:13 Calcium 9.1 mg/dL (8.5-10.5) 09/05/23 04:09 Phosphorus 2.7 mg/dL (2.5-4.5) 09/04/23 04:16 Magnesium 2.1 mg/dL (1.7-2.3) 09/04/23 04:16 Total Bilirubin 0.4 mg/dL (0.15-1.2) 09/03/23 14: AST 61 U/L (0-32) H 09/03/23 14: ALT 45 U/L (0-33) H 09/03/23 14: Alkaline Phosphatase 195 U/L (35-105) H 09/03/23 14:23 Troponin T Baseline 7 ng/L (0-10) 09/03/23 14:23 Troponin T 120 Minute 6.84 ng/L (0-10) 09/03/23 16:20 Delta Troponin T -0.16 ABS# (0-10) L 09/03/23 16:20 Troponin T Hi Sens 6Hr 7.86 ng/L (0-10) 09/03/23 20:29 Troponin T Hi Sens 6Hr Delta 0.86 ng/L (0-12) 09/03/23 20:29 NT-Pro-B Natriuret Pep 82 pg/mL (0-125) 09/03/23 14: Total Protein 6.7 g/dL (6.6-8.7) 09/03/23 14: Albumin 2.6 g/dL (3.5-5.2) L 09/03/23 14: Globulin 4.1 g/dL (1.3-4.6) 09/03/23 14: Vitamin B12 1166 pg/mL (232-1245) 09/03/23 16:20 Urine Color Dark yellow (Yellow) 09/03/23 16:00 Urine Appearance Cloudy (CLEAR) A 09/03/23 16:00 Urine pH 5 (5-7) 09/03/23 16:00 Ur Specific [place] 1.025 (1.005-1.030) 09/03/23 16:00 Urine Protein 1+ (Negative) H 09/03/23 16:00 Urine Glucose (UA) Norm (Normal) 09/03/23 16:00 Urine Ketones 1+ (Negative) H 09/03/23 16:00 Urine Blood Neg (Negative) 09/03/23 16:00 Urine Nitrate Positive (Negative) H 09/03/23 16:00 Urine Bilirubin 2+ (Negative) H 09/03/23 16:00 Urine Urobilinogen 4+ mg/dL (Negative) H 09/03/23 16:00 Ur Leukocyte Esterase Trace (Negative) H 09/03/23 16:00 Urine RBC 0-4 /hpf (0-2) H 09/03/23 16:00 Urine WBC 5-10 /hpf (0-5) H 09/03/23 16:00 Ur Squamous Epith Cells 5-10 /hpf (0-5) H 09/03/23 16:00 Calcium Oxalate Crystal 5-10 /hpf H 09/03/23 16:00 Amorphous Sediment Not Reportable 09/03/23 16:00 Urine Bacteria 2+ /hpf (NONE) H 09/03/23 16:00 Blood Type O Positive 09/04/23 08:15 Rho(D) Type Rh positive 09/04/23 08:15 Antibody Screen Negative 09/04/23 08:15 Crossmatch See Detail 09/04/23 08:15 Vitals Last Vital Signs Temp 98.5 F 09/05/23 03:47 Pulse 104 H 09/05/23 03:47 Resp 16 09/05/23 03:47 BP 124/82 09/05/23 03:47 Pulse Ox 93 09/05/23 03:47 O2 Del Method Room Air 09/04/23 20:00 Discharge Plan Discharge Patient Disposition: Hospice - Home Condition: Stable Prescriptions: New morphine 15 mg Tablet 15 mg PO Q6H PRN (Reason: Moderate Pain) Qty: 20 0RF sennosides-docusate sodium [Stool Softener-Laxative] 8.6-50 mg Tablet 1 tab PO BID Qty: 30 0RF levofloxacin 750 mg tablet 750 mg PO DAILY 7 Days Qty: 7 0RF Continued nystatin 100,000 unit/gram powder 1 applic TOPICAL BID PRN (Reason: itching) Qty: 30 2RF Patient Comments: patient states she has a perscription, but has never needed to take it doxepin 10 mg capsule 10 mg PO TID Qty: 270 0RF zonisamide 50 mg capsule 50 mg PO BID Qty: 180 0RF gabapentin 300 mg capsule 300 mg PO Q8H Qty: 90 4RF (DME) manual wheelchair See Rx Instructions .Route .MEDSUPPLY Qty: 1 0RF Rx Instructions: As directed venlafaxine [Effexor XR] 150 mg capsule,extended release 24hr 150 mg PO QAM Qty: 90 0RF metoprolol succinate [Toprol XL] 25 mg tablet extended release 24 hr 25 mg PO DAILY Qty: 90 0RF (DME) CPAP machine and supplies See Rx Instructions .Route .MEDSUPPLY Qty: 1 5RF Rx Instructions: As directed auto titrating cpap machine and supplies 8-20cm famotidine [Pepcid] 40 mg tablet 40 mg PO DAILY Qty: 90 0RF hydrocodone-acetaminophen 5-325 mg tablet 1 tab PO Q8H PRN (Reason: pain) Qty: 7 0RF lidocaine [Lidoderm] 5 % adhesive patch,medicated 1 patch topical DAILY Qty: 30 0RF Rx Instructions: leave on most painful area for up to 12 hrs Ozempic 0.25 mg or 0.5 mg (2 mg/3 mL) Pen Injector 0.5 mg SUBCUT Q7D Rx Instructions: on Sun lidocaine-prilocaine 2.5-2.5 % cream 1 applic topical .COMPLEX Rx Instructions: apply to skin over port 30-60 minutes prior to port access. Discontinued calcium carbonate [Calcium 600] 600 mg calcium (1,500 mg) tablet 600 mg PO QDAY PRN (Reason: Heartburn) valsartan [Diovan] 80 mg tablet 80 mg PO DAILY Qty: 90 0RF nitrofurantoin macrocrystal [Macrodantin] 100 mg capsule 100 mg PO Q12H 10 Days Qty: 20 0RF Rx Instructions: must administer with a meal/food Discharge Orders: Discharge Order (Routine); Ordered 09/06/23 Ordered By: Vadim Olguin Referrals: Negro Beckford, PROJECT ENGINEERING DIRECTOR-C [Primary Care Provider] - Patient Instructions: Opioid Safety, Pain Management Discharge Attestations Time Spent in Discharge Care*: greater than 30 min Quality Metrics Clinical Quality Measures [ No reported AMI, CVA or VTE this stay] Coding Level of Care Code Acute Code for Chg Fwd Diagnoses Dehydration E86.0 Metastatic cancer C79.9 Anemia D64.9 Weakness R53.1 Unable to care for self Z78.9 Acute kidney injury N17.9 Pulmonary emboli I26.93 Pulmonary embolism type: single subsegmental (without acute cor pulmonale) Acute deep vein thrombosis (DVT) of right lower extremity I82.431 Affected thrombotic vein of extremity: popliteal Urinary tract infection N30.01 Hematuria presence: with hematuria Urinary tract infection type: acute cystitis Breast cancer metastasized to liver C50.919; C78.7 Breast cancer metastasized to brain C50.919; C79.31 Breast cancer metastasized to bone C50.919; C79.51
[2023-09-06 13:20] VITALS: BP 104/56; PULSE 80; RESP 16; TEMP 36.8; O2SAT 94
[2023-09-06 15:13] LABS: Glucose Point of Care 116 mg/dL (70-110)
== END 2023-09-06 13:21 | disposition hospice, home (50) ==
LOC: ER 16:33 → MEDSURG 09-04 13:29
PROVIDERS: Admitting Provider Internal Medicine; Emergency Provider Physician Assistant; PCP Nurse Practitioner; Visit Provider Internal Medicine
DX: E86.0 Dehydration (principal); C79.9 Secondary malignant neoplasm of unspecified site; D64.9 Anemia, unspecified; R53.1 Weakness; Z78.9 Other specified health status; N17.9 Acute kidney failure, unspecified; I26.93 Single subsegmental thrombotic pulmonary embolism without acute cor pulmonale; I82.431 Acute embolism and thrombosis of right popliteal vein; N30.01 Acute cystitis with hematuria; C50.919 Malignant neoplasm of unspecified site of unspecified female breast; C78.7 Secondary malignant neoplasm of liver and intrahepatic bile duct; C79.31 Secondary malignant neoplasm of brain; C79.51 Secondary malignant neoplasm of bone; E66.01 Morbid (severe) obesity due to excess calories; Z68.27 Body mass index [BMI] 27.0-27.9, adult; N39.0 Urinary tract infection, site not specified; Z87.891 Personal history of nicotine dependence
CPT/HCPCS: 36415; 36416; 36430; 36591; 51702; 71045; 80048; 80053; 81001; 82607; 82962; 83036; 83605; 83735; 83880; 84100; 84484; 85014; 85018; 85025; 85610; 85730; 86850; 86900; 86920; 87040; 87077; 87086; 87150; 87186; 87205; 93005; 93971; 96361; 96372; 96374; 96375; 97162; 99285; 99291; G0378; J0696; J1650; J2270; J2405; J7030; P9040